=== PATIENT | male | born 1935 | race Caucasian/White ===

== ENCOUNTER 2016-04-27 16:09 | Inpatient (IN) | payer MEDICARE, OTHER ==
[~2016-04-27] VITALS: Ht 172.7 cm; Wt 101.4 kg
[~2016-04-27 16:09] MED LIST: ASPI1TAB PO; AUGM875T27 PO; B-1210009 PO; BISO5TAB5 PO; CALC500T19 PO; CAPS0.1C TOP; CARA1TAB2 PO; CO Q400C2 PO; COLC1CAP PO; DIGO0.12 PO; FERR32TA PO; FISH1000 PO; FLON1SPR; FURO20TA2 PO; GABA-283 PO; GARL10005 PO; GLUC1000 PO; INSUHUMDS SC; JANU100T PO; METF1000 PO; METF750T PO; MIRA3350 PO; OMEP20CA3 PO; PRED10TA PO; REST0.05 OU; SENN8.6T10 PO; SIMV40TA2 PO; SMZ-800T PO; SPIR25TA2 PO; TOUJ1.2I SC; VITA-112 PO; VITA1TAB23 PO; VITA500046 PO; VITMTA PO; XARE15TA PO
[2016-04-27 16:51] LABS: ABG BASE EXCESS 2.3 (-2.0-2.0); ABG DEVICE NASAL CANN; ABG HCO3 25.1 MEQ/L (22.0-26.0); ABG PARTIAL PRESSURE CO2 32.9 mmHg (35.0-45.0); ABG PARTIAL PRESSURE O2 68.2 mmHg (75.0-100.0); ABG STANDARD HCO3 26.4 MEQ/L (22.0-26.0); ABG TOTAL CO2 26.1 MEQ/L (23.0-31.0)
[2016-04-27] MEDS ORDERED: ACETAMINOPHEN 325 MG TAB As Ordered ONE (16:55)
--- NOTE | 2016-04-27 16:56 | REP ---
Clinical: Fever. Technique: 11/06/2015. Findings: Stable cardiomegaly and evidence for prior sternotomy and CABG again noted. Lung correia demonstrate chronic-appearing interstitial changes. Subtle superimposed atelectasis cannot be excluded. No obvious effusion. No pneumothorax. Skeletal structures intact. Impression: Cannot exclude superimposed basilar atelectasis. Signed by Abraham Spivey MD 04/27/2016 04:47 P
[2016-04-27 17:17] LABS: DIFF SLIDE NUMBER 229; MEAN CORPUSCULAR HEMOGLOBIN 30.3 pg (27.0-33.0); MEAN CORPUSCULAR HGB CONC 34.7 g/dl (32.0-36.5); MEAN CORPUSCULAR VOLUME 87.3 fl (80.0-96.0); RED CELL DISTRIBUTION WIDTH 16.3 % (11.5-14.5); WHITE BLOOD COUNT 3.3 K/mm3 (4.0-10.0)
[2016-04-27 17:18] LABS: PLATELET COUNT, AUTOMATED 85 k/mm3 (150-450)
[2016-04-27 17:20] LABS: ANION GAP 12 MEQ/L (8-16); BLOOD UREA NITROGEN 23 MG/DL (7-18); CALCIUM LEVEL 9.1 MG/DL (8.8-10.2); CARBON DIOXIDE LEVEL 30 MEQ/L (21-32); CHLORIDE LEVEL 93 MEQ/L (98-107); GLOMERULAR FILTRATION RATE > 60.0 (>35); GLUCOSE, FASTING 180 MG/DL (83-110); POTASSIUM SERUM 3.2 MEQ/L (3.5-5.1); SODIUM LEVEL 135 MEQ/L (136-145)
[2016-04-27 17:50] LABS: ANISOCYTOSIS 1+
[2016-04-27 17:51] LABS: SMUDGE CELLS 1+
[2016-04-27] MEDS ORDERED: cefTRIAXone SOD 1 GM VIAL (J0696) As Ordered ONE (18:36)
--- NOTE | 2016-04-27 19:31 | HPEPDOC ---
General Date of Admission 04/27/16 Primary Care Physician: Jr Ortega Collins Chief Complaint The patient is a 81-year-old male admitted with a reason for visit of Difficulty Breathing. Source: Patient, Family History of Present Illness 81-year-old male with past medical history of type 2 diabetes mellitus, peripheral vascular disease, coronary artery disease status post CABG, dyslipidemia, atrial fibrillation, and obstructive sleep apnea on 2 L of oxygen at night presented to the ER with chief complaint of worsening shortness of breath and nonproductive cough over the last 2 days. According to the patient and his 2 sons and daughter at the bedside the patient has been increasingly short of breath with a nonproductive cough, and associated generalized weakness. 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 The patient is able to complete his activities of daily living independently. However, during this time the patient has felt increasingly short of breath on ambulation. The patient was seen by his primary care physician earlier today and was found to have a fever of 102. In addition, the patient was also noted to be saturating 88-90% on room air, which is on the lower side for him as he does not require any supplemental oxygen during the day. The patient states that his shortness of breath is worse on ambulation, and states that he has been unable to do anything around the house. He denies any orthopnea or increase in lower extremity edema. In addition, the patient does state that he has been feeling more weak overall since his shortness of breath and cough started, and he has not been able to ambulate at home due to this. The patient denies any complaints of chest pain, palpitations, abdominal pain, nausea, vomiting, diarrhea, or any burning on urination. In the ER, a chest x-ray did not reveal any acute findings. However, the patient was noted to be febrile, with an increase in oxygen requirement. The patient will be admitted under the hospitalist service for possible underlying pneumonia/upper respiratory tract infection with associated weakness. Home Medications Scheduled (Co Q-10) 400 Mg Cap 400 MG PO DAILY (Reported) (Toujeo Solostar) 300 Unit/Ml Inj 48 UNIT SC DAILY (Reported) Aspirin (Aspirin 81) 81 Mg Tab 81 MG PO DAILY (Reported) Bisoprolol Fumarate (Bisoprolol Fumarate) 5 Mg Tab 5 MG PO DAILY (Reported) Cholecalciferol (Vitamin D-1000) 1,000 Unit Tab 1,000 UNIT PO DAILY (Reported) Cyanocobalamin (B-12) 1,000 Mcg Tab 1,000 MCG PO DAILY (Reported) Ferrous Gluconate (Ferrous Gluconate) 324 Mg Tab 324 MG PO DAILY (Reported) Fish Oil (Fish Oil) 1,000 Mg Cap 1,000 MG PO DAILY (Reported) Furosemide (Furosemide) 20 Mg Tab 60 MG PO DAILY (Reported) RESUME 20MG DOSE AFTER FLUID REDUCES Gabapentin (Gabapentin) 400 Mg Cap 800 MG PO BID (Reported) Insulin Human Lispro (Humalog) 1 Units/0.01 Ml Inj 8 UNITS SC TID (Reported) BEFORE MEALS Metformin Hydrochloride (Metformin HCl) 1,000 Mg Tab 1,000 MG PO BID (Reported ) Multivitamins *[facility]* (Thera M Plus *[facility]*) 1 Tab Tab 1 TAB PO DAILY (Reported) Polyethylene Glycol (Miralax) 1 Pow Pow 17 GM PO DAILY (Reported) Senna (Senna Lax) 8.6 Mg Tab 2 TAB PO DAILY (Reported) Simvastatin - High Dose (Simvastatin) 40 Mg Tab 40 MG PO QHS (Reported) Spironolactone (Spironolactone) 25 Mg Tab 12.5 MG PO BID (Reported) Sucralfate (Carafate) 1 Gm Tab 1 GM PO QID (Reported) Scheduled PRN (Restasis) 0.05 % Emu 2 DROP OU BID PRN PRN DRY EYES (Reported) Allergies Coded Allergies: Atorvastatin (Unverified Allergy, Unknown, 11/11/15) Past Medical History Medical History As noted in HPI Surgical History CABG, appendectomy, deviated septal repair, hand surgery Family History Family History Nonpertinent Social History * Smoker: former Smoker (quit 30+ years ago) Alcohol: occationally Drugs: denies Review of Symptoms Other systems 10 point review of systems negative unless otherwise specified in HPI. Physical Examination ENT Exam: Positive: Atraumatic, Mucous membr. moist/pink Chest Exam: Positive: Clear to auscultation, Normal air movement, Negative: Rales, Wheezing Heart Exam: Positive: Normal S1, Normal S2, Rate Normal Telemetry: Positive: Atrial fibrillation Abdomen Exam: Positive: Soft, Negative: Tenderness Extremity Exam: Positive: Edema (1+ pitting edema the lower extremity is bilaterally), Negative: Tenderness Laboratory Data Labs 24H Laboratory Tests 2 04/27/16 16:34: Anion Gap 12, Anisocytosis 1+, Atypical Lymphocytes 8H, B-Type Natriuretic Peptide 316H, Blood Urea Nitrogen 23H, Creatinine 1.20, Sodium Level 135L, Potassium Level 3.2L, Chloride Level 93L, Carbon Dioxide Level 30, Calcium Level 9.1, Total Creatine Kinase 73, Creatine Kinase MB 1.0, Creatine Kinase MB Relative Index 1.36, Glomerular Filtration Rate > 60.0, Lymphocytes (Manual) 18 , Monocytes (Manual) 22H, Neutrophils 52, Platelet Estimate DECREASED, Smudge Cells 1+, Troponin I 0.05 04/27/16 16:39: Arterial Blood pH 7.500H, Arterial Blood Partial Pressure CO2 32.9L, Arterial Blood Partial Pressure O2 68.2L, Arterial Blood Total CO2 26.1, Arterial Blood HCO3 25.1, Arterial Blood Base Excess 2.3H, Arterial Blood Oxygen Saturation 92.6L, Blood Gas Bicarbonate Standard 26.4H, Oxygen Delivery Device NASAL ZAID CBC/BMP Laboratory Tests 04/27/16 16:34 Calcium Level 9.1, Total Creatine Kinase 73, Red Blood Count 3.86 L, Mean Corpuscular Volume 87.3, Mean Corpuscular Hemoglobin 30.3, Mean Corpuscular Hemoglobin Concent 34.7, Red Cell Distribution Width 16.3 H Microbiology Microbiology 04/27/16 Blood Culture, Received Pending 04/27/16 Blood Culture, Received Pending 04/27/16 Influenza Virus Type A Antigen - Final, Complete 04/27/16 Influenza Virus Type B Antigen - Final, Complete Assessment/Plan Problems: (1) Shortness of breath Status: Acute Response to Treatment: Stable Problem Text: Patient clinically presents with symptoms suggestive of underlying upper respiratory tract infection/pneumonia; fever, increased shortness of breath, productive cough, with increase in oxygen requirements Chest x-ray not suggestive of any acute findings, however this may be masked by the fact that the patient does appear to be dehydrated on presentation ABG notable for respiratory alkalosis Rapid flu negative Blood, sputum cultures pending Will empirically cover with Rocephin and azithromycin for community acquired pneumonia We'll continue to monitor the patient's status (2) Acute kidney injury Status: Acute Problem Text: Serum creatinine noted to be 1.2, at baseline serum creatinine is between 0.8 and 1.0 I will hold his diuretic medication at this time Encourage by mouth intake, with fluid restriction for his history of diastolic CHF (3) Diabetes Status: Chronic Response to Treatment: Stable Problem Text: Continue on insulin sliding scale (4) Atrial fibrillation Status: Chronic Response to Treatment: Stable Problem Text: Rate controlled on current beta nya Not a candidate for anticoagulation given his history of GI bleeds Follows with Dr. Dean as an outpatient. (5) Coronary artery disease Status: Chronic Response to Treatment: Stable Problem Text: EKG with no acute ST changes Troponin negative in the ER Continue on aspirin, beta nya (6) Thrombocytopenia Status: Chronic Problem Text: Patient does have a history of thrombocytopenia, which he states that no particular etiology has been found during outpatient workups (7) PVD (peripheral vascular disease) Status: Chronic Response to Treatment: Stable (8) Obstructive sleep apnea Status: Chronic Response to Treatment: Stable Problem Text: Patient advised to use his own CPAP machine with 2 L of supplemental oxygen at night as used at home. (9) Dyslipidemia Status: Chronic Problem Text: Continue statin (10) Diastolic CHF Status: Chronic Response to Treatment: Stable Problem Text: Patient does take torsemide and spironolactone-however we will hold his medications due to his acute kidney injury Plan / VTE VTE Prophylaxis Ordered?: Yes MAGNUS PEREZ MD Apr 27, 2016 19:31
[2016-04-27] MEDS ORDERED: GARL10005 PO (19:34)
[2016-04-27] MEDS ORDERED: OMEP40CA2 PO (19:34)
[2016-04-27] MEDS ORDERED: BISO5TAB5 PO (19:34)
[2016-04-27] MEDS ORDERED: DIGO0.12 PO (19:34)
[2016-04-27] MEDS ORDERED: ALLO10TA PO (19:34)
[2016-04-27] MEDS ORDERED: COLC1TAB13 PO (19:34)
[2016-04-27] MEDS ORDERED: VISICAP PO (19:34)
[2016-04-27] MEDS ORDERED: VITATAB11 PO (19:34)
[2016-04-27] MEDS ORDERED: D 501TAB PO (19:34)
[2016-04-27] MEDS ORDERED: TORS20TA2 PO ×2 (19:34)
--- NOTE | 2016-04-27 20:40 | ECGEPIP ---
Stationary ECG Study [facility] - ED Test Date: 2016-04-27 Pat Name: CHELI FLEMING Department: Room: - Gender: M Sample Carrier: faviola : 1935 Requested By: Terry Corbin Order Number: [id number] Reading MD: Melissa Mcmahon Measurements Intervals [place] Rate: 77 P: AR: 0 QRS: 32 QRSD: 169 T: 0 QT: 426 QTc: 485 Interpretive Statements ATRIAL FIBRILLATION INDETERMINATE AXIS RIGHT BUNDLE BRANCH BLOCK POSSIBLE ANTERIOR MYOCARDIAL INFARCTION, OF INDETERMINATE AGE Electronically Signed On 04-27-2016 20:39:30 EST by Melissa Mcmahon
[2016-04-27] MEDS: HumaLOG INSULIN (NovoLOG) PER UNIT SC SCH (21:00)
--- NOTE | 2016-04-27 21:09 | EDDOCDS ---
Physician Documentation [facility] Name: Oswaldo Bearden Age: 81 yrs Sex: Male : 1935 Arrival Date: 04/27/2016 Time: 16:09 Bed 9 Private MD: Jordan Disposition: 04/27 18:39 Critical Care: Critical care not applicable. pc Disposition: 04/27/16 18:42 Hospitalization ordered by Valentin Winston for Inpatient Admission. Preliminary diagnosis are Fever of other and unknown origin, Acute upper respiratory infection, unspecified, Decreased white blood cell count, Thrombocytopenia, unspecified. - Bed requested for PCU. - Status is Inpatient Admission. nn1 - Condition is Stable. - Problem is new. - Symptoms have improved. HPI: 16:31 This 81 yrs old Male presents to ER with complaints of Breathing Difficulty. pc 16:31 The history is obtained from the patient, the patient's family/friend. He was well 2 pc days ago and was seen at his PCP for follow up. He was well yesterday but awoke this morning and was found to be drenched in sweat and confused. He felt very warm but did not have a temp recorded. He has had a slight cough. He has not had any nausea or vomiting. 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 He was seen at his PCP this afternoon and found to be febrile and have a PO of only 84% on room. EMS was called and he was transported here. He arrives BLS, with a PO of 93% on room air. He denies any chest pain, headache, SOB, sore throat, abdominal pain, n/v/d, swollen joints or reddened areas. 16:36 At their worst, the symptoms were moderate. In the emergency department, the symptoms pc are mild. The patient has experienced similar episodes in the past, several times. 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 Historical: - Allergies: Lipitor; - Home Meds: 1. aspirin 81 mg Oral chew 1 tab once daily (Last dose: 04/26/2016 08:00) 2. bisoprolol fumarate 5 mg oral tab 1 tab once daily (Last dose: 04/27/2016 08:00) 3. Carafate 1 gram Oral tab 1 tab 4 times per day (Last dose: 04/27/2016 08:00) 4. CoQ-10 30 mg oral cap daily (Last dose: 04/27/2016 08:00) 5. cyanocobalamin (vitamin B-12) 100 mcg oral tab daily (Last dose: 04/27/2016 08:00) 6. cyclosporine 25 mg Oral cap once daily (Last dose: 04/27/2016 08:00) 7. ferrous gluconate 324 mg (37.5 mg iron) Oral tab daily (Last dose: 04/27/2016 08:00) 8. Fish Oil 300-1,000 mg Oral cap daily (Last dose: 04/27/2016 08:00) 9. furosemide 20 mg Oral tab 3 tabs once daily until fluids are reduced (Last dose: 04/27/2016 08:00) 10. gabapentin 800 mg Oral tab twice a day (Last dose: 04/27/2016 08:00) 11. Humalog 8 Units before each meal 3 times daily Sub-Q three times a day (Last dose: 04/27/2016 12:00) 12. metformin 1,000 mg Oral tab 2 times per day (Last dose: 04/27/2016 08:00) 13. multivitamin Oral cap 1 tab daily (Last dose: 04/27/2016 08:00) 14. Prilosec 40 mg Oral cpDR 1 cap once daily (Last dose: 04/27/2016 08:00) 15. Restasis 0.05 % ophthalmic dpet 2 times per day (Last dose: 04/27/2016 08:00) 16. senna 8.6 mg oral cap 2 caps once daily (Last dose: 04/27/2016 08:00) 17. simvastatin 40 mg Oral tab 1 tab once daily (Last dose: 04/27/2016 08:00) 18. spironolactone 25 mg Oral tab 0.5 tab once daily (Last dose: 04/27/2016 08:00) 19. toujeo 48 Units titrate to maximum of 60 Units daily (Last dose: 04/27/2016 08:00) 20. Vit D 3 5000 unit daily (Last dose: 04/27/2016 08:00) - PMHx: CAD; Diabetes - NIDDM: controlled; Hypercholesterolemia; peripheral vascular disease; Sleep Apnea w/ CPAP; BBB; Atrial Fib; CKD 3; CHF; - PSHx: CABAG; Appendectomy; diviated septal repair; - The history from nurses notes was reviewed: but there are no nursing notes, or only partial notes available at the time of my charting. - Social history: Smoking status: Patient states was never smoker of tobacco. No barriers to communication noted, Speaks appropriately for age. - Hospitalizations: : The patient was recently seen at [facility], and discharged 4 month(s) ago, for unrelated complaints. - : The pt / caregiver states he / she is not on anticoagulants. Home medication list is obtained from family members, Unable to Verify Home Med List with the patient / caregiver. - Immunization history:: All immunizations up-to-date. - Exposure Risk Screening:: None identified. - Family history: Not pertinent. - Social history:: the patient is a former smoker, the patient drinks alcohol, socially. ROS: 16:36 All systems are negative except as listed. pc Exam: 16:39 General Appearance: no acute distress, alert. pc 16:39 EENT: ears, nose and throat normal, pale conjunctiva, mucous membranes dry. 16:39 Neck: The exam reveals no acute abnormalities. ROM is normal and painless. No nuchal rigidity is noted.. 16:39 Respiratory: no respiratory distress, normal breath sounds, PO 93% on RA. 16:39 CVS: regular pulse rate, normal S1 and S2, no murmurs, strong peripheral pulses, normal capillary refill, irregularly irregular 16:39 Abdomen: soft, non-tender, no organomegaly, normal bowel sounds. 16:39 Back: normal inspection. 16:39 : bladder is non-distended, non-tender. 16:39 Skin: skin color is normal, warm, dry. 16:39 Extremities: with pedal edema Other trace bilaterally 16:39 Neuro: oriented x 3, cranial nerves normal as tested, no motor deficits, no sensory deficits. 16:39 Psych: normal mood. Vital Signs: 16:22 BP 125 / 62; Pulse 85; Resp 20; Temp 100.9(O); Pulse Ox 93% ; Weight 100.7 kg / 222.01 jlf lbs; Height 5 ft. 8 in. (172.72 cm); Pain 0/10; 18:00 BP 122 / 68; Pulse 87; Resp 14; Pulse Ox 97% on R/A; Pain 0/10; ml6 18:32 Temp 99.4(O); jlf 16:22 Body Mass Index 33.75 (100.70 kg, 172.72 cm) [facility] MDM: 16:28 -Blood Culture (Adults Only), peripheral from different site, or from device/port/PICC pc etc. if present ordered. 16:28 Tip Cementer/Pulse Ox/q 15 min VS ordered. pc 16:28 IV Saline Lock ordered. pc 16:28 Rhythm Strip to chart ordered. pc 16:28 Obtain sample by nasopharyngeal swab ordered. pc 16:29 -Arterial Blood Gas Ordered. EDMS 16:29 -Blood Culture Ordered. EDMS 16:29 B-Type Natiuretic Peptide Ordered. EDMS 16:29 Basic Metabolic Profile Ordered. EDMS 16:29 CBC with Diff Ordered. EDMS 16:29 Cardiac Injury Profile Ordered. EDMS 16:29 Troponin Ordered. EDMS 16:29 -Influenza A&B Rapid Antigen - Nose Ordered. EDMS 16:29 Chest, 1 View Ordered. EDMS 16:30 ECG WITH READING ER PHYS+CARDIAG ordered. EDMS 16:30 -Blood Culture (Adults Only), peripheral from different site, or from device/port/PICC lbd etc. if present complete. 16:33 BLOOD CULTURES Ordered. EDMS 16:42 Differential Diagnosis: febrile illness with cough r/o pneumonia, influenza; AFib no pc longer on anticoagulants due to UGI bleeding history. Plan: labs, EKG, CXR. Test interpretation: EKG. 16:45 Acetaminophen Tablet 650 mg PO once ordered. pc 17:03 Test interpretation: LAB - all labs as ordered have been reviewed, interpreted and pc considered in the overall management of the clinical presentation; X-RAY - interpreted by Radiologist and personally reviewed, 1 view chest ?bibasilar atelectasis, else nad. 17:04 -Arterial Blood Gas Reviewed. pc 17:04 -Influenza A&B Rapid Antigen - Nose Reviewed. pc 17:04 Chest, 1 View Reviewed. pc 17:10 Financial registration complete. gjb 17:14 [facility] Payment Agreement was scanned into [employer] and attached to record. gjb 17:21 DIFFERENTIAL NO CHARGE Ordered. EDMS 17:21 PLATELET ESTIMATE Ordered. EDMS 17:42 B-Type Natiuretic Peptide Reviewed. pc 17:42 Basic Metabolic Profile Reviewed. pc 17:42 CBC with Diff Reviewed. pc 17:42 Cardiac Injury Profile Reviewed. pc 17:42 Troponin Reviewed. pc 17:43 PLATELET ESTIMATE Reviewed. pc 17:46 Ambulate Patient wt Pulse Oximetry ordered. pc 17:46 Repeat Temperature - Oral: Inform provider of result ordered. pc 18:10 CBC with Diff Reviewed. pc 18:10 PLATELET ESTIMATE Reviewed. pc 18:33 NS 0.9% 1000 ml IV at 100 mL/hr continuous ordered. pc 18:33 cefTRIAXone 1 grams IVPB once over 30 mins; dilute in 50mL of NS or D5W ordered. pc 18:33 Urine Culture Ordered. EDMS 18:36 BED REQUEST+ADM ordered. EDMS 18:39 Data reviewed: old medical records, vital signs, nurses notes, EKG(s), lab test pc results, all radiology studies and available results. Test interpretation: Arterial blood gas is normal except. pH: 7.5 pO2: 68 pCO2: 29. The patient has been re-examined and re-evaluated. The patient's symptoms have mildly improved after treatment, with his fever resolved but he is unsteady while ambulating and is unsafe for discharge. Physician consultation: Dr. Valentin Winston regarding admission. Disposition: The historical points, examination findings, and any diagnostic results supporting the provided diagnosis, were discussed with the patient or legal guardian. The need for further work-up and/or treatment in the hospital was explained. 19:12 Admission / Observation Status ordered. EDMS 19:13 CONSISTENT CARBOHYDRATES ordered. EDMS 19:13 URINALYSIS Ordered. EDMS 19:14 PHYSICAL THERAPY EVAL & TREAT ordered. EDMS 19:29 SPUTUM CULTURE AND GRAM STAIN Ordered. EDMS 19:32 BASIC METABOLIC PROFILE Ordered. EDMS 19:32 COMPLETE BLOOD COUNT Ordered. EDMS EC:42 Rate is 77 beats/min. Rhythm is irregularly irregular, A fib. QRS [place] is Normal. QRS pc interval is prolonged at 139 msec. QT interval is normal. No Q waves. T waves are Normal. No ST changes noted. Clinical impression: Atrial Fibrillation w/o RVR, RBBB, and Anterior WA - age indeterminate. No change from previous ECG in October,. Administered Medications: 16:49 Drug: Acetaminophen 650 mg [acetaminophen 325 mg tablet (2 tabs)] Route: PO; ml6 18:33 Drug: NS 0.9% 1000 ml [sodium chloride 0.9 % intravenous solution] Route: IV; Rate: 100 ml6 mL/hr; Site: left antecubital; 20:10 Drug: cefTRIAXone 1 grams [ceftriaxone 250 mg solution for injection] Route: IVPB; nn1 Infused Over: 30 mins; Site: right antecubital; 21:05 Follow up: IV Status: Completed infusion nn1 Signatures: Dispatcher [employer] EDMS Terry Tamayo MD MD pc Daly, Linda, Registered Nurse [employer] [facility] lbd Maximilian Guerin RN RN ml6 Awilda, Mana, GASSER MACHINE OPERATOR GASSER MACHINE OPERATOR [id number] Joe JaimeRN RN nn1 Rosa Whitt The chart was reviewed and I authenticate all verbal orders and agree with the evaluation and treatment provided.Corrections: (The following items were deleted from the chart) 16:38 16:31 He was well 2 days ago and was seen at his PCP for follow up. He was well pc yesterday but awoke this morning and was found to be drenched in sweat and confused. He felt very warm but did not have a temp recorded. He has had a slight cough. He has not had any nausea or vomiting. 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 He was seen at his PCP this afternoon and found to be febrile and have a PO of only 84% on room. EMS was called and he was transported here. pc 16:42 16:39 CVS: regular pulse rate, regular rhythm, normal S1 and S2, no murmurs, strong pc peripheral pulses, normal capillary refill, pc Attachments: 17:14 [facility] Payment Agreement [email or web address]
--- NOTE | 2016-04-27 21:10 | EDDOCDS ---
Nurse's Notes [facility] Name: Cheli Fleming Age: 81 yrs Sex: Male : 1935 Arrival Date: 04/27/2016 Time: 16:09 Bed 9 Private MD: Jordan Diagnosis: Fever of other and unknown origin;Acute upper respiratory infection, unspecified;Decreased white blood cell count;Thrombocytopenia, unspecified Presentation: 04/27 16:22 Presenting complaint: Patient states: states SOB and fatigue since 1999. Adult Sepsis ml6 Screening: Patient has new or worsening altered mentation (1 point). Patient's respiratory rate is less than 22. Systolic blood pressure is greater than 100. Patient has a qSOFA score of 1- Negative Sepsis Screen. Suicide/Homicide risk assessment- the patient denies having any suicidal and/or homicidal ideations and does not present with any other emotional, behavioral or mental health complaints. Status: Patient is not a member service representative or dependent. Transition of care: patient was not received from another setting of care. 16:22 Method Of Arrival: Ambulance ml6 16:33 Acuity: SHIMON Level 3 ml6 Triage Assessment: 16:22 General: Appears in no apparent distress, Behavior is drowsy. Pain: Denies pain. ml6 Neurological: No deficits noted. Level of Consciousness is lethargic, Oriented to person, place, time. Cardiovascular: No deficits noted. Capillary refill < 3 seconds is brisk in bilateral fingers toes Heart tones S1 S2 present Edema is 1+ to left ankle and right ankle Pulses are all present. Rhythm is atrial fibrillation With PVC's Chest pain is denied. Respiratory: Onset: The symptoms/episode began/occurred yesterday, Airway is patent Respiratory effort is even, unlabored, Respiratory pattern is regular, symmetrical, Breath sounds are diminished bilaterally. Reports shortness of breath on exertion the patient has moderate shortness of breath. GI: No deficits noted. Abdomen is obese, Bowel sounds present X 4 quads. Abd is soft and non tender X 4 quads. Historical: - Allergies: Lipitor; - Home Meds: 1. aspirin 81 mg Oral chew 1 tab once daily (Last dose: 04/26/2016 08:00) 2. bisoprolol fumarate 5 mg oral tab 1 tab once daily (Last dose: 04/27/2016 08:00) 3. Carafate 1 gram Oral tab 1 tab 4 times per day (Last dose: 04/27/2016 08:00) 4. CoQ-10 30 mg oral cap daily (Last dose: 04/27/2016 08:00) 5. cyanocobalamin (vitamin B-12) 100 mcg oral tab daily (Last dose: 04/27/2016 08:00) 6. cyclosporine 25 mg Oral cap once daily (Last dose: 04/27/2016 08:00) 7. ferrous gluconate 324 mg (37.5 mg iron) Oral tab daily (Last dose: 04/27/2016 08:00) 8. Fish Oil 300-1,000 mg Oral cap daily (Last dose: 04/27/2016 08:00) 9. furosemide 20 mg Oral tab 3 tabs once daily until fluids are reduced (Last dose: 04/27/2016 08:00) 10. gabapentin 800 mg Oral tab twice a day (Last dose: 04/27/2016 08:00) 11. Humalog 8 Units before each meal 3 times daily Sub-Q three times a day (Last dose: 04/27/2016 12:00) 12. metformin 1,000 mg Oral tab 2 times per day (Last dose: 04/27/2016 08:00) 13. multivitamin Oral cap 1 tab daily (Last dose: 04/27/2016 08:00) 14. Prilosec 40 mg Oral cpDR 1 cap once daily (Last dose: 04/27/2016 08:00) 15. Restasis 0.05 % ophthalmic dpet 2 times per day (Last dose: 04/27/2016 08:00) 16. senna 8.6 mg oral cap 2 caps once daily (Last dose: 04/27/2016 08:00) 17. simvastatin 40 mg Oral tab 1 tab once daily (Last dose: 04/27/2016 08:00) 18. spironolactone 25 mg Oral tab 0.5 tab once daily (Last dose: 04/27/2016 08:00) 19. toujeo 48 Units titrate to maximum of 60 Units daily (Last dose: 04/27/2016 08:00) 20. Vit D 3 5000 unit daily (Last dose: 04/27/2016 08:00) - PMHx: CAD; Diabetes - NIDDM: controlled; Hypercholesterolemia; peripheral vascular disease; Sleep Apnea w/ CPAP; BBB; Atrial Fib; CKD 3; CHF; - PSHx: CABAG; Appendectomy; diviated septal repair; - The history from nurses notes was reviewed: but there are no nursing notes, or only partial notes available at the time of my charting. - Social history: Smoking status: Patient states was never smoker of tobacco. No barriers to communication noted, Speaks appropriately for age. - Hospitalizations: : The patient was recently seen at [facility], and discharged 4 month(s) ago, for unrelated complaints. - : The pt / caregiver states he / she is not on anticoagulants. Home medication list is obtained from family members, Unable to Verify Home Med List with the patient / caregiver. - Immunization history:: All immunizations up-to-date. - Exposure Risk Screening:: None identified. - Family history: Not pertinent. - Social history:: the patient is a former smoker, the patient drinks alcohol, socially. Screenin:48 Screening information is obtained from the patient. Fall risk: No risks identified. ml6 Assistance ADL's: requires no assistance with activities of daily living. Abuse/DV Screen: The patient / caregiver reports he/she is: not in a situation that causes fear, pain or injury. Nutritional screening: No deficits noted. Advance Directives: Currently, there is a health care proxy. home support is adequate. Assessment: 16:22 General: see triage assessment. Cardiovascular: Capillary refill < 3 seconds is brisk ml6 in bilateral fingers toes Heart tones S1 S2 present Edema is 1+ to left ankle and right ankle Pulses are all present. Rhythm is atrial fibrillation With PVC's Chest pain is denied. 17:30 Reassessment: Patient appears in no apparent distress at this time. Patient states ml6 feeling better. Patient states symptoms have improved. patient ambulated with 2 assist 30 feet. . 18:30 Reassessment: Patient appears in no apparent distress at this time. Patient states ml6 feeling better. Patient states symptoms have improved. 20:10 General: Appears in no apparent distress. Neurological: Level of Consciousness is nn1 awake, alert. Cardiovascular: Rhythm is atrial fibrillation With PVC's. Respiratory: Airway is patent Respiratory effort is even, unlabored, Respiratory pattern is regular. 21:03 General: Appears in no apparent distress, to be sleeping. Behavior is appropriate for nn1 age, cooperative. General: Patient given jw jeannie, did not want food at this time. . Neurological:. Respiratory: Airway is patent Respiratory effort is even, unlabored, Respiratory pattern is regular. Derm: Skin is pink, warm & dry. Vital Signs: 16:22 BP 125 / 62; Pulse 85; Resp 20; Temp 100.9(O); Pulse Ox 93% ; Weight 100.7 kg; Height 5 jlf ft. 8 in. (172.72 cm); Pain 0/10; 18:00 BP 122 / 68; Pulse 87; Resp 14; Pulse Ox 97% on R/A; Pain 0/10; ml6 18:32 Temp 99.4(O); jlf 16:22 Body Mass Index 33.75 (100.70 kg, 172.72 cm) [facility] Vitals: 21:06 Log In Time: April 27, 2016 at 16:09. nn1 ED Course: 16:10 Patient visited by Ely Anaya, Administrator Pesticide. lbd 16:10 Patient moved to Waiting lbd 16:11 Jordan is Private Physician. lbd 16:11 Patient moved to 9 lbd 16:17 Terry Tamayo MD is Attending Physician. pc 16:22 Patient visited by Constantino Comer PCA. jlf 16:22 Patient visited by Constantino Comer PCA. jlf 16:22 Inserted peripheral IV: 18gauge IV in right antecubital area and blood collected. ml6 Patient tolerated the procedure well. Labs drawn. (by ED staff). Sent per order to lab. Labs/Blood culture drawn. 16:27 Patient visited by Terry Tamayo MD. pc 16:33 Triage Initiated ml6 16:42 Patient visited by Constantino Comer PCA. jlf 16:43 Patient visited by Constantino Comer PCA. jlf 16:43 Pt greeted and oriented to ED. Patient advised of names of staff involved in care, [facility] location of call lenz, wait times and NPO status. Accompanied by Family Member, Patient has correct armband on for positive identification. Placed in gown. Bed in low position. Side rails up X2. youth nutritional monitor on. Pulse ox on. NIBP on. 16:43 EKG done. (by ED staff). Reviewed by Terry Tamayo MD. jlf 16:45 -Arterial Blood Gas Sent. rs5 16:48 The patient / caregiver is instructed regarding the plan of care and ED course. ml6 16:48 B-Type Natiuretic Peptide Sent. ml6 16:48 Basic Metabolic Profile Sent. ml6 16:48 CBC with Diff Sent. ml6 16:48 Cardiac Injury Profile Sent. ml6 16:48 Troponin Sent. ml6 16:58 Chest, 1 View Returned. EDMS 17:04 Patient visited by Maximilian Guerin RN. ml6 17:14 [facility] Payment Agreement was scanned into AF83 and attached to record. gjb 17:26 DIFFERENTIAL NO CHARGE Sent. ml6 17:27 Patient visited by Maximilian Guerin RN. ml6 17:55 Patient visited by Constantino Comer PCA. jlf 18:29 Patient visited by Constantino Comer PCA. jlf 18:29 Notified attending ED physician of ambulated patient per Dr. thrasher. Patients sats jlf droppped to 91% on RA, prior to that he was standing at 94%. patient was very unstable while trying to walk to the bathroom, needing assistance from this fiction writer and patients son. Notified Dr. Tamayo. . 18:31 Patient visited by Constantino Comer PCA. jlf 18:32 Patient visited by Constantino Comer PCA. jlf 18:41 Valentin Winston is Hospitalizing Provider. pc 20:52 EKG-ADULT Returned. EDMS 21:06 No procedures done that require assistance. nn1 Administered Medications: 16:49 Drug: Acetaminophen 650 mg [acetaminophen 325 mg tablet (2 tabs)] Route: PO; ml6 18:33 Drug: NS 0.9% 1000 ml [sodium chloride 0.9 % intravenous solution] Route: IV; Rate: 100 ml6 mL/hr; Site: left antecubital; 20:10 Drug: cefTRIAXone 1 grams [ceftriaxone 250 mg solution for injection] Route: IVPB; nn1 Infused Over: 30 mins; Site: right antecubital; 21:05 Follow up: IV Status: Completed infusion nn1 RT: 16:45 ABG's drawn from left radial artery pressure held for 5 minutes no bleeding noted rs5 pressure bandage applied specimen sent pt. tolerated well. Order Results: Lab Order: -Arterial Blood Gas; [facility] 04/27/16 16:39 Test: ABG pH (ARTERIAL); Value: 7.500; Range: 7.350-7.450; Abnormal: Above high normal; Units: UNITS; Status: F Test: ABG PARTIAL PRESSURE CO2; Value: 32.9; Range: 35.0-45.0; Abnormal: Below low normal; Units: mmHg; Status: F Test: ABG PARTIAL PRESSURE O2; Value: 68.2; Range: 75.0-100.0; Abnormal: Below low normal; Units: mmHg; Status: F Test: ABG TOTAL CO2; Value: 26.1; Range: 23.0-31.0; Units: MEQ/L; Status: F Test: ABG HCO3; Value: 25.1; Range: 22.0-26.0; Units: MEQ/L; Status: F Test: ABG BASE EXCESS; Value: 2.3; Range: -2.0-2.0; Abnormal: Above high normal; Status: F Test: ABG STANDARD HCO3; Value: 26.4; Range: 22.0-26.0; Abnormal: Above high normal; Units: MEQ/L; Status: F Test: ABG O2 SATURATION; Value: 92.6; Range: 95.0-99.0; Abnormal: Below low normal; Units: %; Status: F Test: ABG DEVICE; Value: NASAL ZAID; Status: F Lab Order: B-Type Natiuretic Peptide; [facility] 04/27/16 16:34 Test: BRAIN NATRIURETIC PEPTIDE; Value: 316; Range: <100; Abnormal: Above high normal; Units: PG/ML; Status: F Lab Order: Basic Metabolic Profile; [facility] 04/27/16 16:34 Test: GLUCOSE, FASTING; Value: 180; Range: 83-110; Abnormal: Above high normal; Units: MG/DL; Status: F Test: BLOOD UREA NITROGEN; Value: 23; Range: 7-18; Abnormal: Above high normal; Units: MG/DL; Status: F Test: CREATININE FOR GFR; Value: 1.20; Range: 0.70-1.30; Units: MG/DL; Status: F Test: GLOMERULAR FILTRATION RATE; Value: > 60.0; Range: >35; Status: F Test: SODIUM LEVEL; Value: 135; Range: 136-145; Abnormal: Below low normal; Units: MEQ/L; Status: F Test: POTASSIUM SERUM; Value: 3.2; Range: 3.5-5.1; Abnormal: Below low normal; Units: MEQ/L; Status: F Test: CHLORIDE LEVEL; Value: 93; Range: 98-107; Abnormal: Below low normal; Units: MEQ/L; Status: F Test: CARBON DIOXIDE LEVEL; Value: 30; Range: 21-32; Units: MEQ/L; Status: F Test: ANION GAP; Value: 12; Range: 8-16; Units: MEQ/L; Status: F Test: CALCIUM LEVEL; Value: 9.1; Range: 8.8-10.2; Units: MG/DL; Status: F Test Note: ; Units are mL/min/1.73 m2 Chronic Kidney Disease Staging per NKF: Stage I & II GFR >=60 Normal to Mildly Decreased Stage III GFR 30-59 Moderately Decreased Stage IV GFR 15-29 Severely Decreased Stage V GFR <15 Very Little GFR Left ESRD GFR <15 on ADVANCE SCOUT Lab Order: CBC with Diff; SPEC'M 04/27/16 16:34 Test: WHITE BLOOD COUNT; Value: 3.3; Range: 4.0-10.0; Abnormal: Below low normal; Units: K/mm3; Status: F Test: RED BLOOD COUNT; Value: 3.86; Range: 4.30-6.10; Abnormal: Below low normal; Units: M/mm3; Status: F Test: HEMOGLOBIN; Value: 11.7; Range: 14.0-18.0; Abnormal: Below low normal; Units: g/dl; Status: F Test: HEMATOCRIT; Value: 33.7; Range: 42.0-52.0; Abnormal: Below low normal; Units: %; Status: F Test: MEAN CORPUSCULAR VOLUME; Value: 87.3; Range: 80.0-96.0; Units: fl; Status: F Test: MEAN CORPUSCULAR HEMOGLOBIN; Value: 30.3; Range: 27.0-33.0; Units: pg; Status: F Test: MEAN CORPUSCULAR HGB CONC; Value: 34.7; Range: 32.0-36.5; Units: g/dl; Status: F Test: RED CELL DISTRIBUTION WIDTH; Value: 16.3; Range: 11.5-14.5; Abnormal: Above high normal; Units: %; Status: F Test: PLATELET COUNT, AUTOMATED; Value: 85; Range: 150-450; Abnormal: Below low normal; Units: k/mm3; Status: F Test: NEUTROPHILS; Value: 52; Range: 35-75; Units: %; Status: F Test: LYMPHOCYTES; Value: 18; Range: 16-52; Units: %; Status: F Test: MONOCYTES; Value: 22; Range: 0-8; Abnormal: Above high normal; Units: %; Status: F Test: ATYPICAL LYMPH; Value: 8; Range: 0-5; Abnormal: Above high normal; Units: %; Status: F Test: ANISOCYTOSIS; Value: 1+; Status: F Test: SMUDGE CELLS; Value: 1+; Status: F Lab Order: Cardiac Injury Profile; [facility] 04/27/16 16:34 Test: CPK CREATINE PHOSPHOKINASE; Value: 73; Range: 39-308; Units: U/L; Status: F Test: CK-MB VALUE MASS; Value: 1.0; Range: 0.0-3.6; Units: NG/ML; Status: F Test: MB/CK RELATIVE INDEX; Value: 1.36; Range: < OR =4; Status: F Test Note: ; DIAGNOSIS CRITERIA MMB ng/ml Relative Index (RI) NON-AMI < or = 5 N/A AGOSTO ZONE > 5 < or = 4 AMI > 5 > 4 Lab Order: Troponin; [facility] 04/27/16 16:34 Test: TROPONIN I; Value: 0.05; Range: < 0.10; Units: NG/ML; Status: F Test Note: ; Troponin I Reference Interval for [employer] LOCI: 99th Percentile= 0.00-0.045 ng/ml Risk Stratification: <= 0.10 ng/ml Decreased Risk for Adverse Clinical Events. 0.10-1.50 ng/ml Increased Risk for Adverse Clinical Events. Evaluation of additional criterion and/or repeat testing in 2-6 hours is suggested to rule out myocardial damage. >= 1.50 ng/ml Indicative of Myocardial Injury. Lab Order: -Influenza A&B Rapid Antigen - Nose; [facility] 04/27/16 16:34 Test: INFLUENZA A RAPID SCR by ICA; Value: INFLUENZA A RESULTS NEGATIVE; Status: F Test: INFLUENZA A RAPID SCR by ICA; Value: Comments:; Status: F Test: INFLUENZA B RAPID SCR by ICA; Value: INFLUENZA B RESULTS NEGATIVE; Status: F Test Note: ; The Influenza test is a direct rapid immunoassay for the qualitative detection of Influenza viral antigen. Cell culture (Viral Culture) testing should be considered to confirm NEGATIVE results and to assist in detecting other viruses that can provide similar clinical symptoms. Please contact the lab within 24 hours [phone] if confirmatory testing is desired. Lab Order: PLATELET ESTIMATE; SPEC'M 04/27/16 16:34 Test: PLATELET ESTIMATE; Value: DECREASED; Range: NORMAL; Status: F Lab Order: URINALYSIS; SPEC'M 04/27/16 20:03 Test: APPEARANCE, URINE; Value: CLEAR; Range: CLEAR; Status: F Test: COLOR, URINE; Value: YELLOW; Range: YELLOW; Status: F Test: PH,URINE; Value: 5.0; Range: 5.0-9.0; Units: UNITS; Status: F Test: SPECIFIC GRAVITY URINE AUTO; Value: 1.010; Range: 1.002-1.035; Status: F Test: PROTEIN, URINE AUTO; Value: NEGATIVE; Range: NEGATIVE; Units: mg/dL; Status: F Test: GLUCOSE, URINE (UA) AUTO; Value: NEGATIVE; Range: NEGATIVE; Units: mg/dL; Status: F Test: KETONE, URINE AUTO; Value: NEGATIVE; Range: NEGATIVE; Units: mg/dL; Status: F Test: UROBILINOGEN, URINE AUTO; Value: 0.2; Range: 0.0-2.0; Units: mg/dL; Status: F Test: BILIRUBIN, URINE AUTO; Value: NEGATIVE; Range: NEGATIVE; Status: F Test: NITRITE, URINE AUTO; Value: NEGATIVE; Range: NEGATIVE; Status: F Test: LEUKOCYTE ESTERASE, URINE AUTO; Value: NEGATIVE; Range: NEGATIVE; Status: F Test: BLOOD, URINE BLOOD; Value: NEGATIVE; Range: NEGATIVE; Status: F Test: WBC, URINE AUTO; Value: 0; Range: 0-3; Units: /HPF; Status: F Test: RBC, URINE AUTO; Value: 3; Range: 0-3; Units: /HPF; Status: F Test: BACTERIA, URINE AUTO; Value: NEGATIVE; Range: NEGATIVE; Status: F Test: SQUAMOUS EPITHELIAL CELL UR AU; Value: 0; Range: 0-6; Units: /HPF; Status: F Test: MUCUS, URINE; Value: SMALL; Range: NEGATIVE; Status: F Test: HYALINE CAST, URINE AUTO; Value: 5; Range: 0-1; Units: /LPF; Status: F Radiology Order: Chest, 1 View Test: Chest, 1 View REASON FOR EXAMINATION: fever; Clinical: Fever.; ; Technique: 11/06/2015.; ; Findings:; Stable cardiomegaly and evidence for prior sternotomy and CABG again noted. Lung; correia demonstrate chronic-appearing interstitial changes. Subtle superimposed; atelectasis cannot be excluded. No obvious effusion. No pneumothorax. Skeletal; structures intact.; ; Impression:; Cannot exclude superimposed basilar atelectasis.; ; ; Signed by; Abraham Spivey MD 04/27/2016 04:47 P; Radiology Order: EKG-ADULT Test: EKG-ADULT REASON FOR EXAMINATION: Shortness of Breath; Stationary ECG Study; [facility] - ED; ; Test Date: 2016-04-27; Pat Name: CHELI FLEMING Department:; Room: -; Gender: Manager Foreign: ; : 1935 Requested By: Terry Corbin; Order Number: [id number] Reading MD: Melissa Mcmahon; Measurements; Intervals [place]; Rate: 77 P:; SD: 0 QRS: 32; QRSD: 169 T: 0; QT: 426; QTc: 485; Interpretive Statements; ATRIAL FIBRILLATION; INDETERMINATE AXIS; RIGHT BUNDLE BRANCH BLOCK; POSSIBLE ANTERIOR MYOCARDIAL INFARCTION, OF INDETERMINATE AGE; ; Electronically Signed On 04-27-2016 20:39:30 EST by Melissa Mcmahon; Outcome: 18:42 Decision to Hospitalize by Provider. pc 21:05 Discharge Assessment: Patient awake, alert and oriented x 3. No cognitive and/or nn1 functional deficits noted. Patient verbalized understanding of disposition instructions. 21:05 Discharge Assessment: patient administered narcotics - no. The following High Risk nn1 Discharge criteria are identified: None. Admitted to PCU accompanied by nurse, accompanied by tech, family with patient, via stretcher, with oxygen, on monitor, with chart. Condition: stable. No special radiology studies were completed. Admission hand-off: Report Faxed Fax receipt verified by ZE Page . Property :Personal belongings accompany Pt. 21:08 Patient left the ED. nn1 Signatures: Dispatcher [employer] EDMS Terry Tamayo MD MD pc Daly, Linda, Administrator Pesticide Unit lbd Maximilian Guerin, RN RN ml6 Sergio Bae,RT RT rs5 Constantino Comer, [employer] Joe EscotoRN RN nn1 Rosa Whitt MTDD
[2016-04-27 21:15] VITALS: BP 146/61
[2016-04-27] MEDS ORDERED: GLUCAGON FOR INJ 1 MG VIAL (J1610) SC PRN (21:45)
[2016-04-27] MEDS ORDERED: GLUCOSE 4 GM CHEW TABLET PO PRN (21:45)
[2016-04-27] MEDS ORDERED: POTASSIUM CHLORIDE 10 MEQ SR TABLET PO ONE (21:45)
[2016-04-27] MEDS ORDERED: DEXTROSE 50% 50 ML SYRINGE IV PRN (21:45)
[2016-04-27] MEDS: OMEPRAZOLE 20 MG CAP PO SCH (22:51)
[2016-04-27] MEDS: SIMVASTATIN 40 MG TAB PO SCH (22:51)
[2016-04-27] MEDS: BISOPROLOL FUMARATE 5 MG TAB PO SCH (22:52)
[2016-04-27] MEDS: SUCRALFATE 1 GM TAB PO SCH (22:52)
[2016-04-27] MEDS: GABAPENTIN 400 MG CAP PO SCH (23:08)
[2016-04-28] VITALS: BP 115/68
[2016-04-28 03:29] LABS: ANION GAP 11 MEQ/L (8-16); BLOOD UREA NITROGEN 22 MG/DL (7-18); CALCIUM LEVEL 8.7 MG/DL (8.8-10.2); CARBON DIOXIDE LEVEL 31 MEQ/L (21-32); CHLORIDE LEVEL 94 MEQ/L (98-107); CREATININE FOR GFR 1.13 MG/DL (0.70-1.30); GLOMERULAR FILTRATION RATE > 60.0 (>35); GLUCOSE, FASTING 134 MG/DL (83-110); POTASSIUM SERUM 3.4 MEQ/L (3.5-5.1); SODIUM LEVEL 136 MEQ/L (136-145)
[2016-04-28 03:33] LABS: MEAN CORPUSCULAR HEMOGLOBIN 29.5 pg (27.0-33.0); MEAN CORPUSCULAR HGB CONC 33.4 g/dl (32.0-36.5); MEAN CORPUSCULAR VOLUME 88.5 fl (80.0-96.0); RED CELL DISTRIBUTION WIDTH 17.3 % (11.5-14.5); WHITE BLOOD COUNT 3.5 K/mm3 (4.0-10.0)
[2016-04-28 04:00] VITALS: BP 120/58
[2016-04-28] MEDS: cefTRIAXone SOD 1 GM in D5W MINI-BAG PLUS 50 ML IV SCH ×2 (05:29→17:05)
[2016-04-28 07:20] VITALS: BP 124/62
[2016-04-28] MEDS: HumaLOG INSULIN (NovoLOG) PER UNIT SC SCH ×4 (07:46→21:00)
[2016-04-28] MEDS: IPRATROPIUM 0.5MG/ALBUTEROL 2.5MG INH SOL UD 3ML (DUONEB)(J7620) NEB SCH ×3 (08:00→19:46)
[2016-04-28] MEDS ORDERED: FUROSEMIDE 40 MG/4 ML VIAL (J1940) IV STA (08:28)
[2016-04-28] MEDS ORDERED: IPRATROPIUM 0.5MG/ALBUTEROL 2.5MG INH SOL UD 3ML (DUONEB)(J7620) NEB PRN (08:30)
[2016-04-28] MEDS: GABAPENTIN 400 MG CAP PO SCH ×2 (08:47→21:37)
[2016-04-28] MEDS: COLCHICINE 0.6 MG TAB PO SCH (08:47)
[2016-04-28] MEDS: MIRALAX *UNIT DOSE* 17GM PACKET PO SCH (08:47)
[2016-04-28] MEDS: DIGOXIN 0.125 MG TAB PO SCH (08:48)
[2016-04-28] MEDS: OMEGA-3 1050MG CAPSULE PO SCH (08:48)
[2016-04-28] MEDS: SENNA 8.6 MG TAB (SENOKOT) PO SCH (08:48)
[2016-04-28] MEDS: MULTIVITAMINS/MINERALS THERAP 1 TAB PO SCH (08:48)
[2016-04-28] MEDS: AZITHROMYCIN 250 MG TAB PO SCH (08:48)
[2016-04-28] MEDS: FERROUS GLUCONATE 324 MG TAB PO SCH (08:49)
[2016-04-28] MEDS: BISOPROLOL FUMARATE 5 MG TAB PO SCH ×2 (08:49→21:38)
[2016-04-28] MEDS: ASPIRIN 81 MG ENTERIC TAB PO SCH (08:49)
[2016-04-28] MEDS: OMEPRAZOLE 20 MG CAP PO SCH ×2 (08:50→21:37)
[2016-04-28] MEDS: ALLOPURINOL 100 MG TAB PO SCH (08:50)
[2016-04-28] MEDS ORDERED: FUROSEMIDE 40 MG/4 ML VIAL (J1940) IV ONE (11:00)
[2016-04-28] MEDS ORDERED: POTASSIUM CHLORIDE 10 MEQ SR TABLET PO ONE (11:00)
--- NOTE | 2016-04-28 11:11 | IPNPDOC ---
Date of Service/Time 04/28/16 Progress Note SUBJECTIVE: The patient tells me that he feels more short of breath when lying flat was exertion but otherwise denies chest pressure lightheadedness dizziness nausea vomiting fevers or chills. He denies sick contacts or recent development of cough OBJECTIVE: PHYSICAL EXAMINATION: VITAL SIGNS: New O2 requirement otherwise Please see below. GENERAL: He is a very pleasant elderly man lying at a 60 angle in bed he does not appear to be in acute distress when I take him off his oxygen he begins to appear somewhat short of breath HEENT: Is a very round reactive to light is difficult to assess for any elevation central venous pressure secondary to body habitus CARDIOVASCULAR: Is 1 S2 regular. RESPIRATORY: Bibasilar Rales. ABDOMINAL: Obese EXTREMITIES: 1+ edema bilaterally LABORATORY DATA: Pancytopenia hypokalemia elevated BNP Please see below. MICROBIOLOGY: Flu swab was negative blood cultures and urine cultures are pending otherwise Please see below. IMAGING: No new imaging DVT prophylaxis ordered?: Sequentials and teds no pharmacological agents secondary to thrombocytopenia ASSESSMENT AND PLAN: This is a 81-year-old man with dyspnea PROBLEMS: 1. Dyspnea both with elevated admission secondary to acquired pneumonia however on my exam I want a shot serial diastolic heart failure. At this time I will give him 80 of IV Lasix and monitor for response. At this time he does appear to be newly hypoxic and with a new O2 requirement and somewhat volume overloaded. The patient normally takes torsemide at home but mostly has not been compliant with her regular 2 g sodium diet over the holidays. For the time being we'll also continue treatment with pneumonia for Suprax azithromycin. His cultures 2. Pancytopenia appears to be somewhat chronic however he has not had hematology evaluation for this and do recommend he undergo this sooner rather than later in the outpatient setting and is suspicious for some myeloproliferative disorder although peripheral smear and iron studies have not revealed any etiology as of yet. The patient is on iron replacement 3. 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 Atrial fibrillation: The patient is not on anticoagulation secondary to history of GI bleed he is on bisoprolol and digoxin 5. Gout patient is on cold seen and allopurinol. 6. Gastroesophageal reflux disease: The patient is on omeprazole and Carafate 7. Coronary artery disease the patient is on an aspirin and beta nya and statin DISPOSITION: We'll continue to optimize patient's respiratory status and try to get him back to his baseline respiratory status prior disposition him. VS, I&O, 24H, Fishbone VS, I&O, 24H, Fishbone Vital Signs Date Time Temp Pulse Resp B/P Pulse Ox O2 Delivery O2 Flow Rate FiO2 04/28/16 08:56 Nasal Cannula 2.0 04/28/16 08:49 85 124/62 04/28/16 07:20 98.5 24 96 I&O- Last 24 Hours up to 6 AM 04/28/16 06:00 Intake Total 100 ml Output Total 0 ml Balance 100 ml Laboratory Tests 2 04/27/16 16:34: Anion Gap 12, Anisocytosis 1+, Atypical Lymphocytes 8H, B-Type Natriuretic Peptide 316H, Blood Urea Nitrogen 23H, Creatinine 1.20, Sodium Level 135L, Potassium Level 3.2L, Chloride Level 93L, Carbon Dioxide Level 30, Calcium Level 9.1, Total Creatine Kinase 73, Creatine Kinase MB 1.0, Creatine Kinase MB Relative Index 1.36, Glomerular Filtration Rate > 60.0, Lymphocytes (Manual) 18 , Monocytes (Manual) 22H, Neutrophils 52, Platelet Estimate DECREASED, Smudge Cells 1+, Troponin I 0.05 04/27/16 16:39: Arterial Blood pH 7.500H, Arterial Blood Partial Pressure CO2 32.9L, Arterial Blood Partial Pressure O2 68.2L, Arterial Blood Total CO2 26.1, Arterial Blood HCO3 25.1, Arterial Blood Base Excess 2.3H, Arterial Blood Oxygen Saturation 92.6L, Blood Gas Bicarbonate Standard 26.4H, Oxygen Delivery Device NASAL ZAID 04/27/16 20:03: Urine Amorphous Sediment , Urine Appearance CLEAR, Urine Color YELLOW, Urine pH 5.0, Urine Specific [place] 1.010, Urine Protein NEGATIVE, Urine Glucose (UA) NEGATIVE, Urine Ketones NEGATIVE, Urine Urobilinogen 0.2, Urine Bilirubin NEGATIVE, Urine Leukocyte Esterase NEGATIVE, Urine Bacteria (Auto) NEGATIVE, Urine Blood NEGATIVE, Urine Calcium Carbonate Cryst(Auto) , Urine Calcium Oxalate Cryst (Auto) , Urine Calcium Phosphate [place] (Auto) , Urine Cellular Casts , Urine Cystine Crystals , Urine Granular Casts (Auto) , Urine Hyaline Casts (Auto) 5, Urine Leucine Crystals , Urine Mucus (Auto) SMALL, Urine Nitrite NEGATIVE, Urine Oval Fat Bodies (Auto) , Urine RBC (Auto) 3, Urine Renal Epithelial Cells , Urine Sperm (Auto) , Urine Squamous Epithelial Cells 0 , Urine Transitional Epithelial Cells , Urine Trichomonas (Auto) , Urine Triple Phosphate Cryst (Auto) , Urine Tyrosine Crystals , Urine Uric Acid Crystals ( Auto) , Urine WBC (Auto) 0, Urine Waxy Casts (Auto) , Urine Yeast-Like Cells ( Auto) 04/27/16 22:29: Bedside Glucose (Misc Panel) 125H 04/28/16 02:58: Anion Gap 11, Blood Urea Nitrogen 22H, Creatinine 1.13, Sodium Level 136, Potassium Level 3.4L, Chloride Level 94L, Carbon Dioxide Level 31, Calcium Level 8.7L, Glomerular Filtration Rate > 60.0 04/28/16 07:32: Troponin I 0.04 Laboratory Tests 04/27/16 16:34 Calcium Level 9.1, Total Creatine Kinase 73, Red Blood Count 3.86 L, Mean Corpuscular Volume 87.3, Mean Corpuscular Hemoglobin 30.3, Mean Corpuscular Hemoglobin Concent 34.7, Red Cell Distribution Width 16.3 H 04/28/16 02:58 Calcium Level 8.7 L, Red Blood Count 3.61 L, Mean Corpuscular Volume 88.5, Mean Corpuscular Hemoglobin 29.5, Mean Corpuscular Hemoglobin Concent 33.4, Red Cell Distribution Width 17.3 H Microbiology 04/27/16 Blood Culture, Received Pending 04/27/16 Blood Culture, Received Pending 04/27/16 Influenza Virus Type A Antigen - Final, Complete 04/27/16 Influenza Virus Type B Antigen - Final, Complete 04/27/16 Urine Culture, Received Pending RICKEY SEAY MD Apr 28, 2016 11:10
[2016-04-28 11:28] LABS: MAGNESIUM LEVEL 2.1 MG/DL (1.8-2.4)
[2016-04-28 12:00] VITALS: BP 130/63
[2016-04-28 16:00] VITALS: BP 113/72
[2016-04-28 20:00] VITALS: BP 128/65
[2016-04-28] MEDS: SIMVASTATIN 40 MG TAB PO SCH (21:37)
[2016-04-28] MEDS: SUCRALFATE 1 GM TAB PO SCH (21:38)
[2016-04-29] VITALS (7 sets, daily range): BP systolic 106–141; BP diastolic 56–86
[2016-04-29] MEDS: IPRATROPIUM 0.5MG/ALBUTEROL 2.5MG INH SOL UD 3ML (DUONEB)(J7620) NEB SCH ×4 (02:00→19:42)
[2016-04-29] MEDS: cefTRIAXone SOD 1 GM in D5W MINI-BAG PLUS 50 ML IV SCH ×2 (05:37→17:29)
[2016-04-29 06:11] LABS: ANION GAP 10 MEQ/L (8-16); BLOOD UREA NITROGEN 21 MG/DL (7-18); CARBON DIOXIDE LEVEL 32 MEQ/L (21-32); CHLORIDE LEVEL 97 MEQ/L (98-107); CREATININE FOR GFR 1.15 MG/DL (0.70-1.30); GLOMERULAR FILTRATION RATE > 60.0 (>35); GLUCOSE, FASTING 198 MG/DL (83-110); SODIUM LEVEL 139 MEQ/L (136-145)
[2016-04-29 06:30] LABS: MEAN CORPUSCULAR HEMOGLOBIN 30.3 pg (27.0-33.0); MEAN CORPUSCULAR HGB CONC 33.7 g/dl (32.0-36.5); RED CELL DISTRIBUTION WIDTH 16.4 % (11.5-14.5); WHITE BLOOD COUNT 2.6 K/mm3 (4.0-10.0)
[2016-04-29] MEDS: HumaLOG INSULIN (NovoLOG) PER UNIT SC SCH ×4 (07:50→20:34)
[2016-04-29] MEDS: AZITHROMYCIN 250 MG TAB PO SCH (08:28)
[2016-04-29] MEDS: MIRALAX *UNIT DOSE* 17GM PACKET PO SCH (08:28)
[2016-04-29] MEDS: ASPIRIN 81 MG ENTERIC TAB PO SCH (08:28)
[2016-04-29] MEDS: COLCHICINE 0.6 MG TAB PO SCH (08:28)
[2016-04-29] MEDS: FERROUS GLUCONATE 324 MG TAB PO SCH (08:28)
[2016-04-29] MEDS: ALLOPURINOL 100 MG TAB PO SCH (08:28)
[2016-04-29] MEDS: GABAPENTIN 400 MG CAP PO SCH ×2 (08:28→20:31)
[2016-04-29] MEDS: DIGOXIN 0.125 MG TAB PO SCH (08:29)
[2016-04-29] MEDS: OMEPRAZOLE 20 MG CAP PO SCH ×2 (08:29→20:31)
[2016-04-29] MEDS: OMEGA-3 1050MG CAPSULE PO SCH (08:30)
[2016-04-29] MEDS: BISOPROLOL FUMARATE 5 MG TAB PO SCH ×2 (08:30→20:34)
[2016-04-29] MEDS: SENNA 8.6 MG TAB (SENOKOT) PO SCH (08:30)
[2016-04-29] MEDS: MULTIVITAMINS/MINERALS THERAP 1 TAB PO SCH (08:30)
--- NOTE | 2016-04-29 09:18 | IPNPDOC ---
Date of Service/Time 04/29/16 Progress Note SUBJECTIVE: The patient tells me that he is feeling better he is less short of breath he is no longer requiring oxygen at rest OBJECTIVE: PHYSICAL EXAMINATION: VITAL SIGNS: New O2 however today he has not required at rest and only with activity he began to desaturate into the high 80s rather quickly he recovers quickly with rest otherwise Please see below. GENERAL: He is a very pleasant elderly man sitting in his recliner eating breakfast he does not appear to be in acute distress HEENT: Is a very round reactive to light is difficult to assess for any elevation central venous pressure secondary to body habitus CARDIOVASCULAR: Is 1 S2 regular. RESPIRATORY: Bibasilar Rales improved from previous days exam. ABDOMINAL: Obese EXTREMITIES: 1+ edema bilaterally LABORATORY DATA: Pancytopenia stable otherwise Please see below. MICROBIOLOGY: Flu swab was negative blood cultures and urine cultures are negative otherwise Please see below. IMAGING: No new imaging DVT prophylaxis ordered?: Sequentials and teds no pharmacological agents secondary to thrombocytopenia ASSESSMENT AND PLAN: This is a 81-year-old man with dyspnea PROBLEMS: 1. Dyspnea likely secondary to decompensated diastolic heart failure and less likely community acquired pneumonia or the patient did improve after 80 of IV Lasix yesterday I will continue him on 80 of IV Lasix twice a day for today and continue to diuresis and monitoring his renal function and electrolytes. The time being I'll continue him on antibiotics as well as he does appear to be improving quite significantly from yesterday. He does not normally require oxygen at home suspect that secondary to dietary restriction on adherence over the holidays he is had decompensation of his diastolic heart failure and should be able to return with to his previous respiratory baseline status within the next 24-48 hours. 2. Pancytopenia appears to be chronic however he has not had hematology evaluation for this and I do recommend he undergo this sooner rather than later in the outpatient setting and is suspicious for some myeloproliferative disorder although peripheral smear and iron studies have not revealed any etiology as of yet. The patient is on iron replacement 3. 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 Atrial fibrillation: The patient is not on anticoagulation secondary to history of GI bleed he is on bisoprolol and digoxin 5. Gout patient is on cold seen and allopurinol. 6. Gastroesophageal reflux disease: The patient is on omeprazole and Carafate 7. Coronary artery disease the patient is on an aspirin and beta nya and statin DISPOSITION: The patient did mention me that he would consider leaving the hospital AGAINST MEDICAL ADVICE risks and benefits were explained him that he currently has an oxygen requirement is not able to get his medications from pharmacy as he is still decompensated heart failure and feels though it would be risking his health and his life. Leave the hospital this was explained to him at length. The patient will discuss with his family further about state continuing care VS, I&O, 24H, Fishbone VS, I&O, 24H, Fishbone Vital Signs Date Time Temp Pulse Resp B/P Pulse Ox O2 Delivery O2 Flow Rate FiO2 04/29/16 08:30 85 110/56 04/29/16 07:47 Room Air 04/29/16 07:20 96.8 18 97 04/28/16 16:00 2.0 I&O- Last 24 Hours up to 6 AM 04/29/16 06:00 Intake Total 820 ml Output Total 1525 ml Balance -705 ml Laboratory Tests 2 04/28/16 11:27: Bedside Glucose (Misc Panel) 205H 04/28/16 16:26: Bedside Glucose (Misc Panel) 198H 04/28/16 21:19: Bedside Glucose (Misc Panel) 270H 04/29/16 05:36: Anion Gap 10, Blood Urea Nitrogen 21H, Creatinine 1.15, Sodium Level 139, Potassium Level 4.0, Chloride Level 97L, Carbon Dioxide Level 32, Calcium Level 9.0, Glomerular Filtration Rate > 60.0 Laboratory Tests 04/29/16 05:36 Calcium Level 9.0, Red Blood Count 3.60 L, Mean Corpuscular Volume 90.0, Mean Corpuscular Hemoglobin 30.3, Mean Corpuscular Hemoglobin Concent 33.7, Red Cell Distribution Width 16.4 H Microbiology 04/27/16 Blood Culture - Preliminary, Resulted No growth after 24 hours . All specim... 04/27/16 Blood Culture - Preliminary, Resulted No growth after 24 hours . All specim... 04/27/16 Influenza Virus Type A Antigen - Final, Complete 04/27/16 Influenza Virus Type B Antigen - Final, Complete 04/27/16 Urine Culture - Final, Complete RICKEY SEAY MD Apr 29, 2016 09:18
[2016-04-29] MEDS: FUROSEMIDE 100 MG/10 ML VIAL (J1940) IV SCH ×2 (09:31→16:57)
[2016-04-29 18:26] LABS: ANION GAP 13 MEQ/L (8-16); BLOOD UREA NITROGEN 21 MG/DL (7-18); CALCIUM LEVEL 8.4 MG/DL (8.8-10.2); CARBON DIOXIDE LEVEL 28 MEQ/L (21-32); CHLORIDE LEVEL 93 MEQ/L (98-107); CREATININE FOR GFR 1.19 MG/DL (0.70-1.30); GLOMERULAR FILTRATION RATE > 60.0 (>35); GLUCOSE, FASTING 230 MG/DL (83-110); MAGNESIUM LEVEL 2.1 MG/DL (1.8-2.4); POTASSIUM SERUM 3.5 MEQ/L (3.5-5.1); SODIUM LEVEL 134 MEQ/L (136-145)
[2016-04-29] MEDS ORDERED: POTASSIUM CHLORIDE 10 MEQ SR TABLET PO ONE (18:45)
[2016-04-29] MEDS: SIMVASTATIN 40 MG TAB PO SCH (20:30)
[2016-04-29] MEDS: SUCRALFATE 1 GM TAB PO SCH (20:32)
--- NOTE | 2016-04-29 22:09 | EDDOCDS ---
Nurse's Notes [facility] Name: Cheli Fleming Age: 81 yrs Sex: Male : 1935 Arrival Date: 04/27/2016 Time: 16:09 Bed 9 Private MD: Jordan Diagnosis: Fever of other and unknown origin;Acute upper respiratory infection, unspecified;Decreased white blood cell count;Thrombocytopenia, unspecified Presentation: 04/27 16:22 Presenting complaint: Patient states: states SOB and fatigue since 1999. Adult Sepsis ml6 Screening: Patient has new or worsening altered mentation (1 point). Patient's respiratory rate is less than 22. Systolic blood pressure is greater than 100. Patient has a qSOFA score of 1- Negative Sepsis Screen. Suicide/Homicide risk assessment- the patient denies having any suicidal and/or homicidal ideations and does not present with any other emotional, behavioral or mental health complaints. 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 Transition of care: patient was not received from another setting of care. 16:22 Method Of Arrival: Ambulance ml6 16:33 Acuity: SHIMON Level 3 ml6 Triage Assessment: 16:22 General: Appears in no apparent distress, Behavior is drowsy. Pain: Denies pain. ml6 Neurological: No deficits noted. Level of Consciousness is lethargic, Oriented to person, place, time. Cardiovascular: No deficits noted. Capillary refill < 3 seconds is brisk in bilateral fingers toes Heart tones S1 S2 present Edema is 1+ to left ankle and right ankle Pulses are all present. Rhythm is atrial fibrillation With PVC's Chest pain is denied. Respiratory: Onset: The symptoms/episode began/occurred yesterday, Airway is patent Respiratory effort is even, unlabored, Respiratory pattern is regular, symmetrical, Breath sounds are diminished bilaterally. Reports shortness of breath on exertion the patient has moderate shortness of breath. GI: No deficits noted. Abdomen is obese, Bowel sounds present X 4 quads. Abd is soft and non tender X 4 quads. Historical: - Allergies: Lipitor; - Home Meds: 1. aspirin 81 mg Oral chew 1 tab once daily (Last dose: 04/26/2016 08:00) 2. bisoprolol fumarate 5 mg oral tab 1 tab once daily (Last dose: 04/27/2016 08:00) 3. Carafate 1 gram Oral tab 1 tab 4 times per day (Last dose: 04/27/2016 08:00) 4. CoQ-10 30 mg oral cap daily (Last dose: 04/27/2016 08:00) 5. cyanocobalamin (vitamin B-12) 100 mcg oral tab daily (Last dose: 04/27/2016 08:00) 6. cyclosporine 25 mg Oral cap once daily (Last dose: 04/27/2016 08:00) 7. ferrous gluconate 324 mg (37.5 mg iron) Oral tab daily (Last dose: 04/27/2016 08:00) 8. Fish Oil 300-1,000 mg Oral cap daily (Last dose: 04/27/2016 08:00) 9. furosemide 20 mg Oral tab 3 tabs once daily until fluids are reduced (Last dose: 04/27/2016 08:00) 10. gabapentin 800 mg Oral tab twice a day (Last dose: 04/27/2016 08:00) 11. Humalog 8 Units before each meal 3 times daily Sub-Q three times a day (Last dose: 04/27/2016 12:00) 12. metformin 1,000 mg Oral tab 2 times per day (Last dose: 04/27/2016 08:00) 13. multivitamin Oral cap 1 tab daily (Last dose: 04/27/2016 08:00) 14. Prilosec 40 mg Oral cpDR 1 cap once daily (Last dose: 04/27/2016 08:00) 15. Restasis 0.05 % ophthalmic dpet 2 times per day (Last dose: 04/27/2016 08:00) 16. senna 8.6 mg oral cap 2 caps once daily (Last dose: 04/27/2016 08:00) 17. simvastatin 40 mg Oral tab 1 tab once daily (Last dose: 04/27/2016 08:00) 18. spironolactone 25 mg Oral tab 0.5 tab once daily (Last dose: 04/27/2016 08:00) 19. toujeo 48 Units titrate to maximum of 60 Units daily (Last dose: 04/27/2016 08:00) 20. Vit D 3 5000 unit daily (Last dose: 04/27/2016 08:00) - PMHx: CAD; Diabetes - NIDDM: controlled; Hypercholesterolemia; peripheral vascular disease; Sleep Apnea w/ CPAP; BBB; Atrial Fib; CKD 3; CHF; - PSHx: CABAG; Appendectomy; diviated septal repair; - The history from nurses notes was reviewed: but there are no nursing notes, or only partial notes available at the time of my charting. - Social history: Smoking status: Patient states was never smoker of tobacco. No barriers to communication noted, Speaks appropriately for age. - Hospitalizations: : The patient was recently seen at [facility], and discharged 4 month(s) ago, for unrelated complaints. - : The pt / caregiver states he / she is not on anticoagulants. Home medication list is obtained from family members, Unable to Verify Home Med List with the patient / caregiver. - Immunization history:: All immunizations up-to-date. - Exposure Risk Screening:: None identified. - Family history: Not pertinent. - Social history:: the patient is a former smoker, the patient drinks alcohol, socially. Screenin:48 Screening information is obtained from the patient. Fall risk: No risks identified. ml6 Assistance ADL's: requires no assistance with activities of daily living. Abuse/DV Screen: The patient / caregiver reports he/she is: not in a situation that causes fear, pain or injury. Nutritional screening: No deficits noted. Advance Directives: Currently, there is a health care proxy. home support is adequate. Assessment: 16:22 General: see triage assessment. Cardiovascular: Capillary refill < 3 seconds is brisk ml6 in bilateral fingers toes Heart tones S1 S2 present Edema is 1+ to left ankle and right ankle Pulses are all present. Rhythm is atrial fibrillation With PVC's Chest pain is denied. 17:30 Reassessment: Patient appears in no apparent distress at this time. Patient states ml6 feeling better. Patient states symptoms have improved. patient ambulated with 2 assist 30 feet. . 18:30 Reassessment: Patient appears in no apparent distress at this time. Patient states ml6 feeling better. Patient states symptoms have improved. 20:10 General: Appears in no apparent distress. Neurological: Level of Consciousness is nn1 awake, alert. Cardiovascular: Rhythm is atrial fibrillation With PVC's. Respiratory: Airway is patent Respiratory effort is even, unlabored, Respiratory pattern is regular. 21:03 General: Appears in no apparent distress, to be sleeping. Behavior is appropriate for nn1 age, cooperative. General: Patient given jw jeannie, did not want food at this time. . Neurological:. Respiratory: Airway is patent Respiratory effort is even, unlabored, Respiratory pattern is regular. Derm: Skin is pink, warm & dry. Vital Signs: 16:22 BP 125 / 62; Pulse 85; Resp 20; Temp 100.9(O); Pulse Ox 93% ; Weight 100.7 kg; Height 5 jlf ft. 8 in. (172.72 cm); Pain 0/10; 18:00 BP 122 / 68; Pulse 87; Resp 14; Pulse Ox 97% on R/A; Pain 0/10; ml6 18:32 Temp 99.4(O); jlf 16:22 Body Mass Index 33.75 (100.70 kg, 172.72 cm) [facility] Vitals: 21:06 Log In Time: April 27, 2016 at 16:09. nn1 ED Course: 16:10 Patient visited by Ely Anaya, Dry Goods Clerk. lbd 16:10 Patient moved to Waiting lbd 16:11 Jordan is Private Physician. lbd 16:11 Patient moved to 9 lbd 16:17 Terry Tamayo MD is Attending Physician. pc 16:22 Patient visited by Constantino Comer PCA. jlf 16:22 Patient visited by Constantino Comer PCA. jlf 16:22 Inserted peripheral IV: 18gauge IV in right antecubital area and blood collected. ml6 Patient tolerated the procedure well. Labs drawn. (by ED staff). Sent per order to lab. Labs/Blood culture drawn. 16:27 Patient visited by Terry Tamayo MD. pc 16:33 Triage Initiated ml6 16:42 Patient visited by Constantino Comer PCA. jlf 16:43 Patient visited by Constantino Comer PCA. jlf 16:43 Pt greeted and oriented to ED. Patient advised of names of staff involved in care, [facility] location of call lenz, wait times and NPO status. Accompanied by Family Member, Patient has correct armband on for positive identification. Placed in gown. Bed in low position. Side rails up X2. shop tailor on. Pulse ox on. NIBP on. 16:43 EKG done. (by ED staff). Reviewed by Terry Tamayo MD. jlf 16:45 -Arterial Blood Gas Sent. rs5 16:48 The patient / caregiver is instructed regarding the plan of care and ED course. ml6 16:48 B-Type Natiuretic Peptide Sent. ml6 16:48 Basic Metabolic Profile Sent. ml6 16:48 CBC with Diff Sent. ml6 16:48 Cardiac Injury Profile Sent. ml6 16:48 Troponin Sent. ml6 16:58 Chest, 1 View Returned. EDMS 17:04 Patient visited by Maximilian Guerin RN. ml6 17:14 [facility] Payment Agreement was scanned into [employer] and attached to record. gjb 17:26 DIFFERENTIAL NO CHARGE Sent. ml6 17:27 Patient visited by Maximilian Guerin RN. ml6 17:55 Patient visited by Constantino Comer PCA. jlf 18:29 Patient visited by Constantino Comer PCA. jlf 18:29 Notified attending ED physician of ambulated patient per Dr. thrasher. Patients sats jlf droppped to 91% on RA, prior to that he was standing at 94%. patient was very unstable while trying to walk to the bathroom, needing assistance from this screen writer and patients son. Notified Dr. Tamayo. . 18:31 Patient visited by Constantino Comer PCA. jlf 18:32 Patient visited by Constantino Comer PCA. jlf 18:41 Valentin Winston is Hospitalizing Provider. pc 20:52 EKG-ADULT Returned. EDMS 21:06 No procedures done that require assistance. nn1 04/28 11:35 ECG/EKG was scanned into [employer] and attached to record. gb Administered Medications: 04/27 16:49 Drug: Acetaminophen 650 mg [acetaminophen 325 mg tablet (2 tabs)] Route: PO; ml6 18:33 Drug: NS 0.9% 1000 ml [sodium chloride 0.9 % intravenous solution] Route: IV; Rate: 100 ml6 mL/hr; Site: left antecubital; 20:10 Drug: cefTRIAXone 1 grams [ceftriaxone 250 mg solution for injection] Route: IVPB; nn1 Infused Over: 30 mins; Site: right antecubital; 21:05 Follow up: IV Status: Completed infusion nn1 RT: 16:45 ABG's drawn from left radial artery pressure held for 5 minutes no bleeding noted rs5 pressure bandage applied specimen sent pt. tolerated well. Order Results: Lab Order: -Arterial Blood Gas; [facility] 04/27/16 16:39 Test: ABG pH (ARTERIAL); Value: 7.500; Range: 7.350-7.450; Abnormal: Above high normal; Units: UNITS; Status: F Test: ABG PARTIAL PRESSURE CO2; Value: 32.9; Range: 35.0-45.0; Abnormal: Below low normal; Units: mmHg; Status: F Test: ABG PARTIAL PRESSURE O2; Value: 68.2; Range: 75.0-100.0; Abnormal: Below low normal; Units: mmHg; Status: F Test: ABG TOTAL CO2; Value: 26.1; Range: 23.0-31.0; Units: MEQ/L; Status: F Test: ABG HCO3; Value: 25.1; Range: 22.0-26.0; Units: MEQ/L; Status: F Test: ABG BASE EXCESS; Value: 2.3; Range: -2.0-2.0; Abnormal: Above high normal; Status: F Test: ABG STANDARD HCO3; Value: 26.4; Range: 22.0-26.0; Abnormal: Above high normal; Units: MEQ/L; Status: F Test: ABG O2 SATURATION; Value: 92.6; Range: 95.0-99.0; Abnormal: Below low normal; Units: %; Status: F Test: ABG DEVICE; Value: NASAL ZAID; Status: F Lab Order: B-Type Natiuretic Peptide; [facility] 04/27/16 16:34 Test: BRAIN NATRIURETIC PEPTIDE; Value: 316; Range: <100; Abnormal: Above high normal; Units: PG/ML; Status: F Lab Order: Basic Metabolic Profile; [facility] 04/27/16 16:34 Test: GLUCOSE, FASTING; Value: 180; Range: 83-110; Abnormal: Above high normal; Units: MG/DL; Status: F Test: BLOOD UREA NITROGEN; Value: 23; Range: 7-18; Abnormal: Above high normal; Units: MG/DL; Status: F Test: CREATININE FOR GFR; Value: 1.20; Range: 0.70-1.30; Units: MG/DL; Status: F Test: GLOMERULAR FILTRATION RATE; Value: > 60.0; Range: >35; Status: F Test: SODIUM LEVEL; Value: 135; Range: 136-145; Abnormal: Below low normal; Units: MEQ/L; Status: F Test: POTASSIUM SERUM; Value: 3.2; Range: 3.5-5.1; Abnormal: Below low normal; Units: MEQ/L; Status: F Test: CHLORIDE LEVEL; Value: 93; Range: 98-107; Abnormal: Below low normal; Units: MEQ/L; Status: F Test: CARBON DIOXIDE LEVEL; Value: 30; Range: 21-32; Units: MEQ/L; Status: F Test: ANION GAP; Value: 12; Range: 8-16; Units: MEQ/L; Status: F Test: CALCIUM LEVEL; Value: 9.1; Range: 8.8-10.2; Units: MG/DL; Status: F Test Note: ; Units are mL/min/1.73 m2 Chronic Kidney Disease Staging per NKF: Stage I & II GFR >=60 Normal to Mildly Decreased Stage III GFR 30-59 Moderately Decreased Stage IV GFR 15-29 Severely Decreased Stage V GFR <15 Very Little GFR Left ESRD GFR <15 on VERIFYING MACHINE OPERATOR Lab Order: CBC with Diff; SPEC'M 04/27/16 16:34 Test: WHITE BLOOD COUNT; Value: 3.3; Range: 4.0-10.0; Abnormal: Below low normal; Units: K/mm3; Status: F Test: RED BLOOD COUNT; Value: 3.86; Range: 4.30-6.10; Abnormal: Below low normal; Units: M/mm3; Status: F Test: HEMOGLOBIN; Value: 11.7; Range: 14.0-18.0; Abnormal: Below low normal; Units: g/dl; Status: F Test: HEMATOCRIT; Value: 33.7; Range: 42.0-52.0; Abnormal: Below low normal; Units: %; Status: F Test: MEAN CORPUSCULAR VOLUME; Value: 87.3; Range: 80.0-96.0; Units: fl; Status: F Test: MEAN CORPUSCULAR HEMOGLOBIN; Value: 30.3; Range: 27.0-33.0; Units: pg; Status: F Test: MEAN CORPUSCULAR HGB CONC; Value: 34.7; Range: 32.0-36.5; Units: g/dl; Status: F Test: RED CELL DISTRIBUTION WIDTH; Value: 16.3; Range: 11.5-14.5; Abnormal: Above high normal; Units: %; Status: F Test: PLATELET COUNT, AUTOMATED; Value: 85; Range: 150-450; Abnormal: Below low normal; Units: k/mm3; Status: F Test: NEUTROPHILS; Value: 52; Range: 35-75; Units: %; Status: F Test: LYMPHOCYTES; Value: 18; Range: 16-52; Units: %; Status: F Test: MONOCYTES; Value: 22; Range: 0-8; Abnormal: Above high normal; Units: %; Status: F Test: ATYPICAL LYMPH; Value: 8; Range: 0-5; Abnormal: Above high normal; Units: %; Status: F Test: ANISOCYTOSIS; Value: 1+; Status: F Test: SMUDGE CELLS; Value: 1+; Status: F Lab Order: Cardiac Injury Profile; [facility] 04/27/16 16:34 Test: CPK CREATINE PHOSPHOKINASE; Value: 73; Range: 39-308; Units: U/L; Status: F Test: CK-MB VALUE MASS; Value: 1.0; Range: 0.0-3.6; Units: NG/ML; Status: F Test: MB/CK RELATIVE INDEX; Value: 1.36; Range: < OR =4; Status: F Test Note: ; DIAGNOSIS CRITERIA MMB ng/ml Relative Index (RI) NON-AMI < or = 5 N/A AGOSTO ZONE > 5 < or = 4 AMI > 5 > 4 Lab Order: Troponin; [facility] 04/27/16 16:34 Test: TROPONIN I; Value: 0.05; Range: < 0.10; Units: NG/ML; Status: F Test Note: ; Troponin I Reference Interval for [employer] LOCI: 99th Percentile= 0.00-0.045 ng/ml Risk Stratification: <= 0.10 ng/ml Decreased Risk for Adverse Clinical Events. 0.10-1.50 ng/ml Increased Risk for Adverse Clinical Events. Evaluation of additional criterion and/or repeat testing in 2-6 hours is suggested to rule out myocardial damage. >= 1.50 ng/ml Indicative of Myocardial Injury. Lab Order: -Influenza A&B Rapid Antigen - Nose; [facility] 04/27/16 16:34 Test: INFLUENZA A RAPID SCR by ICA; Value: INFLUENZA A RESULTS NEGATIVE; Status: F Test: INFLUENZA A RAPID SCR by ICA; Value: Comments:; Status: F Test: INFLUENZA B RAPID SCR by ICA; Value: INFLUENZA B RESULTS NEGATIVE; Status: F Test Note: ; The Influenza test is a direct rapid immunoassay for the qualitative detection of Influenza viral antigen. Cell culture (Viral Culture) testing should be considered to confirm NEGATIVE results and to assist in detecting other viruses that can provide similar clinical symptoms. Please contact the lab within 24 hours ([phone]) if confirmatory testing is desired. Lab Order: PLATELET ESTIMATE; SPEC'M 04/27/16 16:34 Test: PLATELET ESTIMATE; Value: DECREASED; Range: NORMAL; Status: F Lab Order: URINALYSIS; [facility] 04/27/16 20:03 Test: APPEARANCE, URINE; Value: CLEAR; Range: CLEAR; Status: F Test: COLOR, URINE; Value: YELLOW; Range: YELLOW; Status: F Test: PH,URINE; Value: 5.0; Range: 5.0-9.0; Units: UNITS; Status: F Test: SPECIFIC GRAVITY URINE AUTO; Value: 1.010; Range: 1.002-1.035; Status: F Test: PROTEIN, URINE AUTO; Value: NEGATIVE; Range: NEGATIVE; Units: mg/dL; Status: F Test: GLUCOSE, URINE (UA) AUTO; Value: NEGATIVE; Range: NEGATIVE; Units: mg/dL; Status: F Test: KETONE, URINE AUTO; Value: NEGATIVE; Range: NEGATIVE; Units: mg/dL; Status: F Test: UROBILINOGEN, URINE AUTO; Value: 0.2; Range: 0.0-2.0; Units: mg/dL; Status: F Test: BILIRUBIN, URINE AUTO; Value: NEGATIVE; Range: NEGATIVE; Status: F Test: NITRITE, URINE AUTO; Value: NEGATIVE; Range: NEGATIVE; Status: F Test: LEUKOCYTE ESTERASE, URINE AUTO; Value: NEGATIVE; Range: NEGATIVE; Status: F Test: BLOOD, URINE BLOOD; Value: NEGATIVE; Range: NEGATIVE; Status: F Test: WBC, URINE AUTO; Value: 0; Range: 0-3; Units: /HPF; Status: F Test: RBC, URINE AUTO; Value: 3; Range: 0-3; Units: /HPF; Status: F Test: BACTERIA, URINE AUTO; Value: NEGATIVE; Range: NEGATIVE; Status: F Test: SQUAMOUS EPITHELIAL CELL UR AU; Value: 0; Range: 0-6; Units: /HPF; Status: F Test: MUCUS, URINE; Value: SMALL; Range: NEGATIVE; Status: F Test: HYALINE CAST, URINE AUTO; Value: 5; Range: 0-1; Units: /LPF; Status: F Radiology Order: Chest, 1 View Test: Chest, 1 View REASON FOR EXAMINATION: fever; Clinical: Fever.; ; Technique: 11/06/2015.; ; Findings:; Stable cardiomegaly and evidence for prior sternotomy and CABG again noted. Lung; correia demonstrate chronic-appearing interstitial changes. Subtle superimposed; atelectasis cannot be excluded. No obvious effusion. No pneumothorax. Skeletal; structures intact.; ; Impression:; Cannot exclude superimposed basilar atelectasis.; ; ; Signed by; Abraham Spivey MD 04/27/2016 04:47 P; Radiology Order: EKG-ADULT Test: EKG-ADULT REASON FOR EXAMINATION: Shortness of Breath; Stationary ECG Study; [facility] - ED; ; Test Date: 2016-04-27; Pat Name: CHELI FLEMING Department:; Room: -; Gender: M Plush Cutter: faviola; : 1935 Requested By: Terry Corbin; Order Number: [id number] Reading MD: Melissa Mcmahon; Measurements; Intervals [place]; Rate: 77 P:; VA: 0 QRS: 32; QRSD: 169 T: 0; QT: 426; QTc: 485; Interpretive Statements; ATRIAL FIBRILLATION; INDETERMINATE AXIS; RIGHT BUNDLE BRANCH BLOCK; POSSIBLE ANTERIOR MYOCARDIAL INFARCTION, OF INDETERMINATE AGE; ; Electronically Signed On 04-27-2016 20:39:30 EST by Melissa Mcmahon; Outcome: 18:42 Decision to Hospitalize by Provider. 21:05 Discharge Assessment: Patient awake, alert and oriented x 3. No cognitive and/or nn1 functional deficits noted. Patient verbalized understanding of disposition instructions. 21:05 Discharge Assessment: patient administered narcotics - no. The following High Risk nn1 Discharge criteria are identified: None. Admitted to PCU accompanied by nurse, accompanied by tech, family with patient, via stretcher, with oxygen, on monitor, with chart. Condition: stable. No special radiology studies were completed. Admission hand-off: Report Faxed Fax receipt verified by ZE Page . Property :Personal belongings accompany Pt. 21:08 Patient left the ED. nn1 Signatures: Dispatcher [employer] EDMS Terry Tamayo MD MD pc Daly, Linda, Dry Goods Clerk Unit lbd Christelle Manzano, Reg Reg Maximilian Oliva, RN RN ml6 Sergio Bae,RT RT rs5 Constantino Comer, CONTENT WRITER CONTENT WRITER Joe Escoto RN RN nn1 Rosa Whitt Chart Complete MTDD
--- NOTE | 2016-04-29 22:09 | EDDOCDS ---
Physician Documentation [facility] Name: Oswaldo Bearden Age: 81 yrs Sex: Male : 1935 Arrival Date: 04/27/2016 Time: 16:09 Bed 9 Private MD: Jordan Disposition: 04/27 18:39 Critical Care: Critical care not applicable. pc Disposition: 04/27/16 18:42 Hospitalization ordered by Valentin Winston for Inpatient Admission. Preliminary diagnosis are Fever of other and unknown origin, Acute upper respiratory infection, unspecified, Decreased white blood cell count, Thrombocytopenia, unspecified. - Bed requested for PCU. - Status is Inpatient Admission. nn1 - Condition is Stable. - Problem is new. - Symptoms have improved. HPI: 16:31 This 81 yrs old Male presents to ER with complaints of Breathing Difficulty. pc 16:31 The history is obtained from the patient, the patient's family/friend. He was well 2 pc days ago and was seen at his PCP for follow up. He was well yesterday but awoke this morning and was found to be drenched in sweat and confused. He felt very warm but did not have a temp recorded. He has had a slight cough. He has not had any nausea or vomiting. 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 He was seen at his PCP this afternoon and found to be febrile and have a PO of only 84% on room. EMS was called and he was transported here. He arrives BLS, with a PO of 93% on room air. He denies any chest pain, headache, SOB, sore throat, abdominal pain, n/v/d, swollen joints or reddened areas. 16:36 At their worst, the symptoms were moderate. In the emergency department, the symptoms pc are mild. The patient has experienced similar episodes in the past, several times. 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 Historical: - Allergies: Lipitor; - Home Meds: 1. aspirin 81 mg Oral chew 1 tab once daily (Last dose: 04/26/2016 08:00) 2. bisoprolol fumarate 5 mg oral tab 1 tab once daily (Last dose: 04/27/2016 08:00) 3. Carafate 1 gram Oral tab 1 tab 4 times per day (Last dose: 04/27/2016 08:00) 4. CoQ-10 30 mg oral cap daily (Last dose: 04/27/2016 08:00) 5. cyanocobalamin (vitamin B-12) 100 mcg oral tab daily (Last dose: 04/27/2016 08:00) 6. cyclosporine 25 mg Oral cap once daily (Last dose: 04/27/2016 08:00) 7. ferrous gluconate 324 mg (37.5 mg iron) Oral tab daily (Last dose: 04/27/2016 08:00) 8. Fish Oil 300-1,000 mg Oral cap daily (Last dose: 04/27/2016 08:00) 9. furosemide 20 mg Oral tab 3 tabs once daily until fluids are reduced (Last dose: 04/27/2016 08:00) 10. gabapentin 800 mg Oral tab twice a day (Last dose: 04/27/2016 08:00) 11. Humalog 8 Units before each meal 3 times daily Sub-Q three times a day (Last dose: 04/27/2016 12:00) 12. metformin 1,000 mg Oral tab 2 times per day (Last dose: 04/27/2016 08:00) 13. multivitamin Oral cap 1 tab daily (Last dose: 04/27/2016 08:00) 14. Prilosec 40 mg Oral cpDR 1 cap once daily (Last dose: 04/27/2016 08:00) 15. Restasis 0.05 % ophthalmic dpet 2 times per day (Last dose: 04/27/2016 08:00) 16. senna 8.6 mg oral cap 2 caps once daily (Last dose: 04/27/2016 08:00) 17. simvastatin 40 mg Oral tab 1 tab once daily (Last dose: 04/27/2016 08:00) 18. spironolactone 25 mg Oral tab 0.5 tab once daily (Last dose: 04/27/2016 08:00) 19. toujeo 48 Units titrate to maximum of 60 Units daily (Last dose: 04/27/2016 08:00) 20. Vit D 3 5000 unit daily (Last dose: 04/27/2016 08:00) - PMHx: CAD; Diabetes - NIDDM: controlled; Hypercholesterolemia; peripheral vascular disease; Sleep Apnea w/ CPAP; BBB; Atrial Fib; CKD 3; CHF; - PSHx: CABAG; Appendectomy; diviated septal repair; - The history from nurses notes was reviewed: but there are no nursing notes, or only partial notes available at the time of my charting. - Social history: Smoking status: Patient states was never smoker of tobacco. No barriers to communication noted, Speaks appropriately for age. - Hospitalizations: : The patient was recently seen at [facility], and discharged 4 month(s) ago, for unrelated complaints. - : The pt / caregiver states he / she is not on anticoagulants. Home medication list is obtained from family members, Unable to Verify Home Med List with the patient / caregiver. - Immunization history:: All immunizations up-to-date. - Exposure Risk Screening:: None identified. - Family history: Not pertinent. - Social history:: the patient is a former smoker, the patient drinks alcohol, socially. ROS: 16:36 All systems are negative except as listed. pc Exam: 16:39 General Appearance: no acute distress, alert. pc 16:39 EENT: ears, nose and throat normal, pale conjunctiva, mucous membranes dry. 16:39 Neck: The exam reveals no acute abnormalities. ROM is normal and painless. No nuchal rigidity is noted.. 16:39 Respiratory: no respiratory distress, normal breath sounds, PO 93% on RA. 16:39 CVS: regular pulse rate, normal S1 and S2, no murmurs, strong peripheral pulses, normal capillary refill, irregularly irregular 16:39 Abdomen: soft, non-tender, no organomegaly, normal bowel sounds. 16:39 Back: normal inspection. 16:39 : bladder is non-distended, non-tender. 16:39 Skin: skin color is normal, warm, dry. 16:39 Extremities: with pedal edema Other trace bilaterally 16:39 Neuro: oriented x 3, cranial nerves normal as tested, no motor deficits, no sensory deficits. 16:39 Psych: normal mood. Vital Signs: 16:22 BP 125 / 62; Pulse 85; Resp 20; Temp 100.9(O); Pulse Ox 93% ; Weight 100.7 kg / 222.01 jlf lbs; Height 5 ft. 8 in. (172.72 cm); Pain 0/10; 18:00 BP 122 / 68; Pulse 87; Resp 14; Pulse Ox 97% on R/A; Pain 0/10; ml6 18:32 Temp 99.4(O); jlf 16:22 Body Mass Index 33.75 (100.70 kg, 172.72 cm) [facility] MDM: 16:28 -Blood Culture (Adults Only), peripheral from different site, or from device/port/PICC pc etc. if present ordered. 16:28 Transmissions Systems Operator/Pulse Ox/q 15 min VS ordered. pc 16:28 IV Saline Lock ordered. pc 16:28 Rhythm Strip to chart ordered. pc 16:28 Obtain sample by nasopharyngeal swab ordered. pc 16:29 -Arterial Blood Gas Ordered. EDMS 16:29 -Blood Culture Ordered. EDMS 16:29 B-Type Natiuretic Peptide Ordered. EDMS 16:29 Basic Metabolic Profile Ordered. EDMS 16:29 CBC with Diff Ordered. EDMS 16:29 Cardiac Injury Profile Ordered. EDMS 16:29 Troponin Ordered. EDMS 16:29 -Influenza A&B Rapid Antigen - Nose Ordered. EDMS 16:29 Chest, 1 View Ordered. EDMS 16:30 ECG WITH READING ER PHYS+CARDIAG ordered. EDMS 16:30 -Blood Culture (Adults Only), peripheral from different site, or from device/port/PICC lbd etc. if present complete. 16:33 BLOOD CULTURES Ordered. EDMS 16:42 Differential Diagnosis: febrile illness with cough r/o pneumonia, influenza; AFib no pc longer on anticoagulants due to UGI bleeding history. Plan: labs, EKG, CXR. Test interpretation: EKG. 16:45 Acetaminophen Tablet 650 mg PO once ordered. pc 17:03 Test interpretation: LAB - all labs as ordered have been reviewed, interpreted and pc considered in the overall management of the clinical presentation; X-RAY - interpreted by Radiologist and personally reviewed, 1 view chest ?bibasilar atelectasis, else nad. 17:04 -Arterial Blood Gas Reviewed. pc 17:04 -Influenza A&B Rapid Antigen - Nose Reviewed. pc 17:04 Chest, 1 View Reviewed. pc 17:10 Financial registration complete. gjb 17:14 [facility] Payment Agreement was scanned into [employer] and attached to record. gjb 17:21 DIFFERENTIAL NO CHARGE Ordered. EDMS 17:21 PLATELET ESTIMATE Ordered. EDMS 17:42 B-Type Natiuretic Peptide Reviewed. pc 17:42 Basic Metabolic Profile Reviewed. pc 17:42 CBC with Diff Reviewed. pc 17:42 Cardiac Injury Profile Reviewed. pc 17:42 Troponin Reviewed. pc 17:43 PLATELET ESTIMATE Reviewed. pc 17:46 Ambulate Patient wt Pulse Oximetry ordered. pc 17:46 Repeat Temperature - Oral: Inform provider of result ordered. pc 18:10 CBC with Diff Reviewed. pc 18:10 PLATELET ESTIMATE Reviewed. pc 18:33 NS 0.9% 1000 ml IV at 100 mL/hr continuous ordered. pc 18:33 cefTRIAXone 1 grams IVPB once over 30 mins; dilute in 50mL of NS or D5W ordered. pc 18:33 Urine Culture Ordered. EDMS 18:36 BED REQUEST+ADM ordered. EDMS 18:39 Data reviewed: old medical records, vital signs, nurses notes, EKG(s), lab test pc results, all radiology studies and available results. Test interpretation: Arterial blood gas is normal except. pH: 7.5 pO2: 68 pCO2: 29. The patient has been re-examined and re-evaluated. The patient's symptoms have mildly improved after treatment, with his fever resolved but he is unsteady while ambulating and is unsafe for discharge. Physician consultation: Dr. Valentin Winston regarding admission. Disposition: The historical points, examination findings, and any diagnostic results supporting the provided diagnosis, were discussed with the patient or legal guardian. The need for further work-up and/or treatment in the hospital was explained. 19:12 Admission / Observation Status ordered. EDMS 19:13 CONSISTENT CARBOHYDRATES ordered. EDMS 19:13 URINALYSIS Ordered. EDMS 19:14 PHYSICAL THERAPY EVAL & TREAT ordered. EDMS 19:29 SPUTUM CULTURE AND GRAM STAIN Ordered. EDMS 19:32 BASIC METABOLIC PROFILE Ordered. EDMS 19:32 COMPLETE BLOOD COUNT Ordered. EDMS 04/28 11:35 ECG/EKG was scanned into [employer] and attached to record. EC/30 16:42 Rate is 77 beats/min. Rhythm is irregularly irregular, A fib. QRS [place] is Normal. QRS pc interval is prolonged at 139 msec. QT interval is normal. No Q waves. T waves are Normal. No ST changes noted. Clinical impression: Atrial Fibrillation w/o RVR, RBBB, and Anterior [place] - age indeterminate. No change from previous ECG in October,. Administered Medications: 16:49 Drug: Acetaminophen 650 mg [acetaminophen 325 mg tablet (2 tabs)] Route: PO; ml6 18:33 Drug: NS 0.9% 1000 ml [sodium chloride 0.9 % intravenous solution] Route: IV; Rate: 100 ml6 mL/hr; Site: left antecubital; 20:10 Drug: cefTRIAXone 1 grams [ceftriaxone 250 mg solution for injection] Route: IVPB; nn1 Infused Over: 30 mins; Site: right antecubital; 21:05 Follow up: IV Status: Completed infusion nn1 Signatures: Dispatcher [employer] EDMS Terry Tamayo MD MD pc Daly, Linda, [employer] Assistant Unit lbd Christelle Manzano, Maximilian Flores RN RN ml6 Mana Kaiser, FEDERAL APPELLATE LAW CLERK FEDERAL APPELLATE LAW CLERK [id number] Joe Jaime RN RN nn1 Rosa Whitt The chart was reviewed and I authenticate all verbal orders and agree with the evaluation and treatment provided.Corrections: (The following items were deleted from the chart) 16:38 16:31 He was well 2 days ago and was seen at his PCP for follow up. He was well pc yesterday but awoke this morning and was found to be drenched in sweat and confused. He felt very warm but did not have a temp recorded. He has had a slight cough. He has not had any nausea or vomiting. 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 He was seen at his PCP this afternoon and found to be febrile and have a PO of only 84% on room. EMS was called and he was transported here. pc 16:42 16:39 CVS: regular pulse rate, regular rhythm, normal S1 and S2, no murmurs, strong pc peripheral pulses, normal capillary refill, pc Attachments: 17:14 [facility] Payment Agreement gjb 04/28 11:35 ECG/EKG Chart Complete MTDD
--- NOTE | 2016-04-29 22:09 | EDDOCDS ---
Physician Documentation [facility] Name: Oswaldo Bearden Age: 81 yrs Sex: Male : 1935 Arrival Date: 04/27/2016 Time: 16:09 Bed 9 Private MD: Jordan Disposition: 04/27 18:39 Critical Care: Critical care not applicable. pc Disposition: 04/27/16 18:42 Hospitalization ordered by Valentin Winston for Inpatient Admission. Preliminary diagnosis are Fever of other and unknown origin, Acute upper respiratory infection, unspecified, Decreased white blood cell count, Thrombocytopenia, unspecified. - Bed requested for PCU. - Status is Inpatient Admission. nn1 - Condition is Stable. - Problem is new. - Symptoms have improved. HPI: 16:31 This 81 yrs old Male presents to ER with complaints of Breathing Difficulty. pc 16:31 The history is obtained from the patient, the patient's family/friend. He was well 2 pc days ago and was seen at his PCP for follow up. He was well yesterday but awoke this morning and was found to be drenched in sweat and confused. He felt very warm but did not have a temp recorded. He has had a slight cough. He has not had any nausea or vomiting. 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 He was seen at his PCP this afternoon and found to be febrile and have a PO of only 84% on room. EMS was called and he was transported here. He arrives BLS, with a PO of 93% on room air. He denies any chest pain, headache, SOB, sore throat, abdominal pain, n/v/d, swollen joints or reddened areas. 16:36 At their worst, the symptoms were moderate. In the emergency department, the symptoms pc are mild. The patient has experienced similar episodes in the past, several times. 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 Historical: - Allergies: Lipitor; - Home Meds: 1. aspirin 81 mg Oral chew 1 tab once daily (Last dose: 04/26/2016 08:00) 2. bisoprolol fumarate 5 mg oral tab 1 tab once daily (Last dose: 04/27/2016 08:00) 3. Carafate 1 gram Oral tab 1 tab 4 times per day (Last dose: 04/27/2016 08:00) 4. CoQ-10 30 mg oral cap daily (Last dose: 04/27/2016 08:00) 5. cyanocobalamin (vitamin B-12) 100 mcg oral tab daily (Last dose: 04/27/2016 08:00) 6. cyclosporine 25 mg Oral cap once daily (Last dose: 04/27/2016 08:00) 7. ferrous gluconate 324 mg (37.5 mg iron) Oral tab daily (Last dose: 04/27/2016 08:00) 8. Fish Oil 300-1,000 mg Oral cap daily (Last dose: 04/27/2016 08:00) 9. furosemide 20 mg Oral tab 3 tabs once daily until fluids are reduced (Last dose: 04/27/2016 08:00) 10. gabapentin 800 mg Oral tab twice a day (Last dose: 04/27/2016 08:00) 11. Humalog 8 Units before each meal 3 times daily Sub-Q three times a day (Last dose: 04/27/2016 12:00) 12. metformin 1,000 mg Oral tab 2 times per day (Last dose: 04/27/2016 08:00) 13. multivitamin Oral cap 1 tab daily (Last dose: 04/27/2016 08:00) 14. Prilosec 40 mg Oral cpDR 1 cap once daily (Last dose: 04/27/2016 08:00) 15. Restasis 0.05 % ophthalmic dpet 2 times per day (Last dose: 04/27/2016 08:00) 16. senna 8.6 mg oral cap 2 caps once daily (Last dose: 04/27/2016 08:00) 17. simvastatin 40 mg Oral tab 1 tab once daily (Last dose: 04/27/2016 08:00) 18. spironolactone 25 mg Oral tab 0.5 tab once daily (Last dose: 04/27/2016 08:00) 19. toujeo 48 Units titrate to maximum of 60 Units daily (Last dose: 04/27/2016 08:00) 20. Vit D 3 5000 unit daily (Last dose: 04/27/2016 08:00) - PMHx: CAD; Diabetes - NIDDM: controlled; Hypercholesterolemia; peripheral vascular disease; Sleep Apnea w/ CPAP; BBB; Atrial Fib; CKD 3; CHF; - PSHx: CABAG; Appendectomy; diviated septal repair; - The history from nurses notes was reviewed: but there are no nursing notes, or only partial notes available at the time of my charting. - Social history: Smoking status: Patient states was never smoker of tobacco. No barriers to communication noted, Speaks appropriately for age. - Hospitalizations: : The patient was recently seen at [facility], and discharged 4 month(s) ago, for unrelated complaints. - : The pt / caregiver states he / she is not on anticoagulants. Home medication list is obtained from family members, Unable to Verify Home Med List with the patient / caregiver. - Immunization history:: All immunizations up-to-date. - Exposure Risk Screening:: None identified. - Family history: Not pertinent. - Social history:: the patient is a former smoker, the patient drinks alcohol, socially. ROS: 16:36 All systems are negative except as listed. pc Exam: 16:39 General Appearance: no acute distress, alert. pc 16:39 EENT: ears, nose and throat normal, pale conjunctiva, mucous membranes dry. 16:39 Neck: The exam reveals no acute abnormalities. ROM is normal and painless. No nuchal rigidity is noted.. 16:39 Respiratory: no respiratory distress, normal breath sounds, PO 93% on RA. 16:39 CVS: regular pulse rate, normal S1 and S2, no murmurs, strong peripheral pulses, normal capillary refill, irregularly irregular 16:39 Abdomen: soft, non-tender, no organomegaly, normal bowel sounds. 16:39 Back: normal inspection. 16:39 : bladder is non-distended, non-tender. 16:39 Skin: skin color is normal, warm, dry. 16:39 Extremities: with pedal edema Other trace bilaterally 16:39 Neuro: oriented x 3, cranial nerves normal as tested, no motor deficits, no sensory deficits. 16:39 Psych: normal mood. Vital Signs: 16:22 BP 125 / 62; Pulse 85; Resp 20; Temp 100.9(O); Pulse Ox 93% ; Weight 100.7 kg / 222.01 jlf lbs; Height 5 ft. 8 in. (172.72 cm); Pain 0/10; 18:00 BP 122 / 68; Pulse 87; Resp 14; Pulse Ox 97% on R/A; Pain 0/10; ml6 18:32 Temp 99.4(O); jlf 16:22 Body Mass Index 33.75 (100.70 kg, 172.72 cm) [facility] MDM: 16:28 -Blood Culture (Adults Only), peripheral from different site, or from device/port/PICC pc etc. if present ordered. 16:28 Physics Faculty Member/Pulse Ox/q 15 min VS ordered. pc 16:28 IV Saline Lock ordered. pc 16:28 Rhythm Strip to chart ordered. pc 16:28 Obtain sample by nasopharyngeal swab ordered. pc 16:29 -Arterial Blood Gas Ordered. EDMS 16:29 -Blood Culture Ordered. EDMS 16:29 B-Type Natiuretic Peptide Ordered. EDMS 16:29 Basic Metabolic Profile Ordered. EDMS 16:29 CBC with Diff Ordered. EDMS 16:29 Cardiac Injury Profile Ordered. EDMS 16:29 Troponin Ordered. EDMS 16:29 -Influenza A&B Rapid Antigen - Nose Ordered. EDMS 16:29 Chest, 1 View Ordered. EDMS 16:30 ECG WITH READING ER PHYS+CARDIAG ordered. EDMS 16:30 -Blood Culture (Adults Only), peripheral from different site, or from device/port/PICC lbd etc. if present complete. 16:33 BLOOD CULTURES Ordered. EDMS 16:42 Differential Diagnosis: febrile illness with cough r/o pneumonia, influenza; AFib no pc longer on anticoagulants due to UGI bleeding history. Plan: labs, EKG, CXR. Test interpretation: EKG. 16:45 Acetaminophen Tablet 650 mg PO once ordered. pc 17:03 Test interpretation: LAB - all labs as ordered have been reviewed, interpreted and pc considered in the overall management of the clinical presentation; X-RAY - interpreted by Radiologist and personally reviewed, 1 view chest ?bibasilar atelectasis, else nad. 17:04 -Arterial Blood Gas Reviewed. pc 17:04 -Influenza A&B Rapid Antigen - Nose Reviewed. pc 17:04 Chest, 1 View Reviewed. pc 17:10 Financial registration complete. gjb 17:14 [facility] Payment Agreement was scanned into [employer] and attached to record. gjb 17:21 DIFFERENTIAL NO CHARGE Ordered. EDMS 17:21 PLATELET ESTIMATE Ordered. EDMS 17:42 B-Type Natiuretic Peptide Reviewed. pc 17:42 Basic Metabolic Profile Reviewed. pc 17:42 CBC with Diff Reviewed. pc 17:42 Cardiac Injury Profile Reviewed. pc 17:42 Troponin Reviewed. pc 17:43 PLATELET ESTIMATE Reviewed. pc 17:46 Ambulate Patient wt Pulse Oximetry ordered. pc 17:46 Repeat Temperature - Oral: Inform provider of result ordered. pc 18:10 CBC with Diff Reviewed. pc 18:10 PLATELET ESTIMATE Reviewed. pc 18:33 NS 0.9% 1000 ml IV at 100 mL/hr continuous ordered. pc 18:33 cefTRIAXone 1 grams IVPB once over 30 mins; dilute in 50mL of NS or D5W ordered. pc 18:33 Urine Culture Ordered. EDMS 18:36 BED REQUEST+ADM ordered. EDMS 18:39 Data reviewed: old medical records, vital signs, nurses notes, EKG(s), lab test pc results, all radiology studies and available results. Test interpretation: Arterial blood gas is normal except. pH: 7.5 pO2: 68 pCO2: 29. The patient has been re-examined and re-evaluated. The patient's symptoms have mildly improved after treatment, with his fever resolved but he is unsteady while ambulating and is unsafe for discharge. Physician consultation: Dr. Valentin Winston regarding admission. Disposition: The historical points, examination findings, and any diagnostic results supporting the provided diagnosis, were discussed with the patient or legal guardian. The need for further work-up and/or treatment in the hospital was explained. 19:12 Admission / Observation Status ordered. EDMS 19:13 CONSISTENT CARBOHYDRATES ordered. EDMS 19:13 URINALYSIS Ordered. EDMS 19:14 PHYSICAL THERAPY EVAL & TREAT ordered. EDMS 19:29 SPUTUM CULTURE AND GRAM STAIN Ordered. EDMS 19:32 BASIC METABOLIC PROFILE Ordered. EDMS 19:32 COMPLETE BLOOD COUNT Ordered. EDMS 04/28 11:35 ECG/EKG was scanned into [employer] and attached to record. EC/30 16:42 Rate is 77 beats/min. Rhythm is irregularly irregular, A fib. QRS [place] is Normal. QRS pc interval is prolonged at 139 msec. QT interval is normal. No Q waves. T waves are Normal. No ST changes noted. Clinical impression: Atrial Fibrillation w/o RVR, RBBB, and Anterior [place] - age indeterminate. No change from previous ECG in October,. Administered Medications: 16:49 Drug: Acetaminophen 650 mg [acetaminophen 325 mg tablet (2 tabs)] Route: PO; ml6 18:33 Drug: NS 0.9% 1000 ml [sodium chloride 0.9 % intravenous solution] Route: IV; Rate: 100 ml6 mL/hr; Site: left antecubital; 20:10 Drug: cefTRIAXone 1 grams [ceftriaxone 250 mg solution for injection] Route: IVPB; nn1 Infused Over: 30 mins; Site: right antecubital; 21:05 Follow up: IV Status: Completed infusion nn1 Signatures: Dispatcher [employer] EDMS Terry Tamayo MD MD pc Daly, Linda, Pack Mule Worker Unit lbd Christelle Manzano, Maximilian Flores RN RN ml6 Mana Kaiser, CONTINUOUS IMPROVEMENT MANAGER CONTINUOUS IMPROVEMENT MANAGER [id number] Joe Jaime RN RN nn1 Rosa Whitt The chart was reviewed and I authenticate all verbal orders and agree with the evaluation and treatment provided.Corrections: (The following items were deleted from the chart) 16:38 16:31 He was well 2 days ago and was seen at his PCP for follow up. He was well pc yesterday but awoke this morning and was found to be drenched in sweat and confused. He felt very warm but did not have a temp recorded. He has had a slight cough. He has not had any nausea or vomiting. 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 He was seen at his PCP this afternoon and found to be febrile and have a PO of only 84% on room. EMS was called and he was transported here. pc 16:42 16:39 CVS: regular pulse rate, regular rhythm, normal S1 and S2, no murmurs, strong pc peripheral pulses, normal capillary refill, pc Attachments: 17:14 [facility] [place] Payment Agreement gjb 04/28 11:35 ECG/EKG Chart Complete MTDD
[2016-04-30] MEDS: IPRATROPIUM 0.5MG/ALBUTEROL 2.5MG INH SOL UD 3ML (DUONEB)(J7620) NEB SCH ×2 (02:00→07:13)
[2016-04-30 05:23] LABS: MEAN CORPUSCULAR HEMOGLOBIN 29.7 pg (27.0-33.0); MEAN CORPUSCULAR HGB CONC 33.7 g/dl (32.0-36.5); MEAN CORPUSCULAR VOLUME 88.2 fl (80.0-96.0); RED CELL DISTRIBUTION WIDTH 17.5 % (11.5-14.5); WHITE BLOOD COUNT 2.8 K/mm3 (4.0-10.0)
[2016-04-30] MEDS: cefTRIAXone SOD 1 GM in D5W MINI-BAG PLUS 50 ML IV SCH (05:36)
[2016-04-30 05:37] LABS: ANION GAP 12 MEQ/L (8-16); BLOOD UREA NITROGEN 20 MG/DL (7-18); CALCIUM LEVEL 8.3 MG/DL (8.8-10.2); CARBON DIOXIDE LEVEL 26 MEQ/L (21-32); CHLORIDE LEVEL 96 MEQ/L (98-107); GLOMERULAR FILTRATION RATE > 60.0 (>35); GLUCOSE, FASTING 219 MG/DL (83-110); POTASSIUM SERUM 3.6 MEQ/L (3.5-5.1); SODIUM LEVEL 134 MEQ/L (136-145)
[2016-04-30 05:52] VITALS: BP 126/81
[2016-04-30 07:53] VITALS: BP 152/83
[2016-04-30] MEDS: HumaLOG INSULIN (NovoLOG) PER UNIT SC SCH (08:51)
[2016-04-30] MEDS: FUROSEMIDE 100 MG/10 ML VIAL (J1940) IV SCH (08:51)
[2016-04-30] MEDS: OMEPRAZOLE 20 MG CAP PO SCH (08:53)
[2016-04-30] MEDS ORDERED: LEVO500T32 PO (08:53)
[2016-04-30] MEDS: ALLOPURINOL 100 MG TAB PO SCH (08:54)
[2016-04-30] MEDS: AZITHROMYCIN 250 MG TAB PO SCH (08:54)
[2016-04-30] MEDS: ASPIRIN 81 MG ENTERIC TAB PO SCH (08:55)
[2016-04-30] MEDS: GABAPENTIN 400 MG CAP PO SCH (08:55)
[2016-04-30 08:56] VITALS: BP 152/83
[2016-04-30] MEDS: BISOPROLOL FUMARATE 5 MG TAB PO SCH (08:56)
[2016-04-30] MEDS: OMEGA-3 1050MG CAPSULE PO SCH (08:57)
[2016-04-30] MEDS: FERROUS GLUCONATE 324 MG TAB PO SCH (08:57)
[2016-04-30] MEDS: MULTIVITAMINS/MINERALS THERAP 1 TAB PO SCH (08:57)
[2016-04-30] MEDS: COLCHICINE 0.6 MG TAB PO SCH (08:58)
[2016-04-30] MEDS: DIGOXIN 0.125 MG TAB PO SCH (08:59)
[2016-04-30] MEDS: SENNA 8.6 MG TAB (SENOKOT) PO SCH (08:59)
[2016-04-30] MEDS: MIRALAX *UNIT DOSE* 17GM PACKET PO SCH (09:00)
--- NOTE | 2016-05-01 09:33 | DSES ---
DATE OF ADMISSION: 04/27/2016 DATE OF DISCHARGE: 04/30/2016 DISCHARGE DIAGNOSIS: Decompensated diastolic heart failure. SECONDARY DIAGNOSES: Community acquired pneumonia. Pancytopenia. Type 2 diabetes. Atrial fibrillation. Gout. Gastroesophageal reflux disease. Coronary artery disease. HOSPITAL COURSE: The patient is an 81-year-old man who presented with dyspnea and progressively worsening shortness of breath. As per the patient's son, he had been progressively putting on weight and had been nonadherent with the fluid restricted diet. The patient himself has episodes where he becomes confused and he lives with his and has a caregiver for his who has advanced dementia. Their son lives next door and grandson is able to provide almost 24 hour a day, 7 day a week care, however, they are alone at night. They also have 6 hours a day of nursing help. Patient was admitted to the progressive care unit with dyspnea. He was started on empiric antibiotics for community acquired pneumonia. His cultures all remained negative. He was diuresed with IV Lasix as well and had good improvement in his symptoms. He briefly had an oxygen requirement at the time of admission but this did resolve. He did lose a significant amount of weight. SUBJECTIVE: The patient reports he is feeling well. He feels back to normal and wants to go home. He denies any chest pain, shortness of breath, lightheadedness, dizziness, fevers, chills or cough. OBJECTIVE: Vital signs: Temperature 97.1, pulse 99, respiratory rate 20, blood pressure 126/81, oxygen saturation 95% on 2 liters nasal cannula. General: He is a very pleasant elderly man sitting in a recliner. He is accompanied by his son. Patient does not appear to be in any acute distress. HEENT: Cranial nerves II through XII are grossly intact. He has moist mucous membranes and elevation of his central venous pressure. Cardiovascular exam: S1, S2, irregularly irregular but he is not tachycardic at the time of my exam. Respiratory exam: He is actually fairly clear today. Abdominal exam: Obese. Extremities: No clubbing, cyanosis. He has 1+ edema bilaterally. LABORATORY STUDIES TODAY: WBC 2.8, hemoglobin 10.7, hematocrit 31.8, platelet count 68, stable. Chemistry panel: Sodium 134, potassium 3.6, chloride 96, bicarbonate 26, BUN 20, creatinine 1.1. Microbiology: The flu swab was negative. Two sets of blood cultures were negative and urine culture was negative. Imaging: The patient had chest x-ray here which revealed some pulmonary edema. ASSESSMENT AND PLAN: This is an 81-year-old man with dyspnea secondary to decompensated diastolic heart failure and possibly some community acquired pneumonia. PROBLEMS: 1. Dyspnea likely secondary to decompensated diastolic heart failure. He did improve after IV Lasix. He does appear to be mildly fluid overloaded at the present time. I suspect he could continue with diuresis at home. I have spoke with the son and the patient at length about monitoring daily weights, fluid restriction and salt restriction. He does admit that he was not necessarily adherent with it over the holidays, however, he will be more particular with it in the coming days. He has been advised that should be have a greater weight increase than 2 pounds in 48 hours, he should contact his primary care provider and take additional diuretic. Patient will also be switched to oral levofloxacin to finish a 7 day course of antibiotics for possible community acquired pneumonia. 2. Pancytopenia, appears to be relatively chronic over the past 1 year, however, at the present time, he has not undergone a hematology evaluation and I would recommend he undergo this sooner rather than later. Iron studies and peripheral smear have not revealed an etiology as of yet. There could possibly be some iron deficiency anemia in regards to his red blood cells, however, I do have concern for underlying myeloproliferative disorder. Recommend outpatient hematology referral. 3. Type 2 diabetes with neuropathy. He was continued on insulin while in the hospital and Neurontin. 4. Atrial fibrillation. He is not on any anticoagulation secondary to gastrointestinal (GI) bleed. He is on bisoprolol and digoxin. It was well controlled during his stay. 5. Gout. The patient is on colchicine and allopurinol. 6. Gastroesophageal reflux disease. Patient is on omeprazole and Carafate. 7. Coronary artery disease. Patient is in aspirin, beta nya and a statin. DISPOSITION: The patient is being discharged home to the care of his son and grandson. His clinical status is back to his baseline. Activity is as prior to admission. Diet is 1500 mL fluid restricted 2 gram sodium with consistent carbohydrate. He is to followup with Dr. Dean within 2 weeks and followup with his primary care provider within 1 week. He is advised to return to the hospital should his symptoms worsen. Check daily weights. MEDICATIONS AT THE TIME OF DISCHARGE: - levofloxacin 500 mg daily for 4 days - allopurinol 200 mg daily - aspirin 81 mg daily - vitamin B complex one tablet daily - bisoprolol 5 mg every evening - bisoprolol 2.5 mg daily - vitamin D 5000 units daily - Coenzyme Q 400 mg daily - colchicine 0.6 mg daily - digoxin 0.0625 mg daily - ferrous sulfate 325 mg daily - fish oil 1 gram daily - gabapentin 800 mg twice a day - garlic oil 1 gram daily - Lispro 26 units before meals - metformin 1 gram twice a day - multivitamin one tablet daily - omeprazole 40 mg twice a day - MiraLax 17 grams daily - Restasis 0.05% two drops each eye twice daily as needed for dry eyes - Senna laxative one tablet daily - simvastatin 40 mg every evening - aldactone 12.5 mg twice a day - Carafate 1 gram every evening - torsemide 40 mg in the morning, 60 mg in the evening - 80 units subcutaneously daily - vision plus one capsule daily Greater than 45 minutes spent organizing safe disposition.
== END 2016-04-30 10:19 | disposition home health service (06) | DRG 291 ==
LOC: M ED 16:09 → M ED INP 18:40 → M PCU 21:11
PROVIDERS: ADMIT Internal Medicine; ATTEND Internal Medicine
DX: I50.33 Acute on chronic diastolic (congestive) heart failure (principal); J18.9 Pneumonia, unspecified organism; D61.818 Other pancytopenia; E87.3 Alkalosis; E11.40 Type 2 diabetes mellitus with diabetic neuropathy, unspecified; I48.91 Unspecified atrial fibrillation; K21.9 Gastro-esophageal reflux disease without esophagitis; M10.9 Gout, unspecified; Z79.899 Other long term (current) drug therapy; Z79.82 Long term (current) use of aspirin; I25.10 Atherosclerotic heart disease of native coronary artery without angina pectoris; E78.5 Hyperlipidemia, unspecified; G47.33 Obstructive sleep apnea (adult) (pediatric); I73.9 Peripheral vascular disease, unspecified

== ENCOUNTER → 2016-07-17 | Outpatient (REF) | payer MEDICARE, OTHER ==
[~2016-07-17] MED LIST changes: +ALLO10TA PO; +COLC1TAB13 PO; +D 501TAB PO; +LEVO500T32 PO; +OMEP40CA2 PO; +TORS20TA2 PO; +VISICAP PO; +VITATAB11 PO
[2016-07-17 18:14] LABS: FOLATE > 24.0 NG/ML; VITAMIN B12 LEVEL 678 PG/ML
[2016-07-17 18:32] LABS: PERCENT SATURATION 22.4 % (19.7-37.4); TOTAL IRON BINDING CAPACITY 522 UG/DL (250-450)
== END ==
LOC: M LAB REF 16:26
PROVIDERS: ATTEND Internal Medicine
DX: N18.9 Chronic kidney disease, unspecified (principal); D63.1 Anemia in chronic kidney disease

== ENCOUNTER 2016-10-08 18:44 | Emergency (ER) | payer MEDICARE, OTHER ==
[~2016-10-08] VITALS: Ht 172.7 cm; Wt 102.3 kg
[2016-10-08 20:00] LABS: BASO % 0.4 % (0.0-1.0); EOS % 0.3 % (0.0-3.0); LARGE UNSTAINED CELL # 0.5 K/mm3 (0.0-0.4); LARGE UNSTAINED CELL % 5.1 % (0.0-4.0); LYMPH # 1.6 K/mm3 (1.5-4.5); LYMPH % 10.3 % (24.0-44.0); MEAN CORPUSCULAR HEMOGLOBIN 29.8 pg (27.0-33.0); MEAN CORPUSCULAR HGB CONC 33.2 g/dl (32.0-36.5); MEAN CORPUSCULAR VOLUME 89.9 fl (80.0-96.0); MONO # 2.1 K/mm3 (0.0-0.8); MONO % 19.7 % (0.0-5.0); NEUTROPHILS # 6.8 K/mm3 (1.8-7.7); NEUTROPHILS % 64.2 % (36.0-66.0); PLATELET COUNT, AUTOMATED 108 k/mm3 (150-450); RED CELL DISTRIBUTION WIDTH 16.2 % (11.5-14.5); WHITE BLOOD COUNT 10.6 K/mm3 (4.0-10.0)
[2016-10-08 20:27] LABS: ALBUMIN 3.9 GM/DL (3.2-5.2); ALBUMIN/GLOBULIN RATIO 1.18 (1.00-1.93); ALKALINE PHOSPHATASE 148 U/L (45-117); ALT/SGPT 31 U/L (12-78); ANION GAP 9 MEQ/L (8-16); AST/SGOT 26 U/L (15-37); BILIRUBIN,DIRECT 0.2 MG/DL (0.0-0.2); BILIRUBIN,TOTAL 0.6 MG/DL (0.2-1.0); BLOOD UREA NITROGEN 22 MG/DL (7-18); CALCIUM LEVEL 9.2 MG/DL (8.8-10.2); CARBON DIOXIDE LEVEL 32 MEQ/L (21-32); CHLORIDE LEVEL 93 MEQ/L (98-107); CREATININE FOR GFR 1.21 MG/DL (0.70-1.30); GLOMERULAR FILTRATION RATE > 60.0 (>35); GLUCOSE, FASTING 102 MG/DL (83-110); POTASSIUM SERUM 3.7 MEQ/L (3.5-5.1); SODIUM LEVEL 134 MEQ/L (136-145); TOTAL PROTEIN 7.2 GM/DL (6.4-8.2)
[2016-10-08] MEDS ORDERED: ACETAMINOPHEN TAB 650MG DOSE (2X325MG) PO ONE (21:00)
--- NOTE | 2016-10-08 21:00 | REPUSA ---
Clinical history: Cough. Comparison: None. Findings: Frontal and lateral views of the chest were obtained. The mediastinum is within normal limi ts. The heart is enlarged. The lungs are clear. No pleural effusion or pneumothorax is seen. The osse ous structures and soft tissues are unremarkable. Impression: No acute disease.
--- NOTE | 2016-10-08 22:40 | REPUSA ---
CT of the head Clinical history: confusion. Protocol: Multiple axial CT images obtained with 5 mm slice thickness were obtained through the head without administration of contrast. Comparison: 08/31/2015. Findings: The ventricles and sulci are symmetric but prominent in size bilaterally. There are periven tricular areas of low attenuation throughout the deep white matter. There is no evidence of acute hem orrhage or infarct. There is no midline shift, mass effect, or extra-axial fluid collection. The osse ous structures are unremarkable. The visualized paranasal sinuses and mastoid air cells are clear. Impression: No acute hemorrhage or infarct. Findings are consistent with age-related atrophy and printing specialist alesia small vessel ischemic disease.
[2016-10-08 23:40] VITALS: O2SAT 91
[2016-10-09 00:03] VITALS: BP 140/60
--- NOTE | 2016-10-09 05:56 | ECGEPIP ---
Stationary ECG Study [facility] - ED Test Date: 2016-10-08 Pat Name: CHELI FLEMING Department: Room: - Gender: M Community Director: patricia : 1935 Requested By: NAM Dooley Order Number: [id number] Reading MD: Terry Tamayo Measurements Intervals [place] Rate: 87 P: [place]: 0 QRS: 17 QRSD: 159 T: 19 QT: 412 QTc: 497 Interpretive Statements ATRIAL FIBRILLATION INDETERMINATE AXIS RIGHT BUNDLE BRANCH BLOCK POSSIBLE ANTERIOR MYOCARDIAL INFARCTION, OF INDETERMINATE AGE SIMILAR TO 04/27/16 Electronically Signed On 10-09-2016 5:56:52 EDT by Terry Tamayo
== END 2016-10-09 00:05 | disposition home or self-care (01) ==
LOC: M ED 21:27
DX: J06.9 Acute upper respiratory infection, unspecified (principal); I48.91 Unspecified atrial fibrillation; I25.10 Atherosclerotic heart disease of native coronary artery without angina pectoris; E11.9 Type 2 diabetes mellitus without complications; K21.9 Gastro-esophageal reflux disease without esophagitis; M10.9 Gout, unspecified; N18.9 Chronic kidney disease, unspecified; Z88.8 Allergy status to other drugs, medicaments and biological substances; Z79.899 Other long term (current) drug therapy; Z79.82 Long term (current) use of aspirin; Z79.84 Long term (current) use of oral hypoglycemic drugs

== ENCOUNTER → 2016-11-13 | Outpatient (REF) ==
[~2016-11-13] MED LIST changes: +ACET1TAB17 PO; +AMIL5TA PO; +ASPI81TA24 PO; -AUGM875T27 PO; +AUGM875T28 PO; +BIOTLIQ9 SSP; +BISA10SU4 PR; -CARA1TAB2 PO; +CARA1TAB6 PO; +CARV6.25 PO; +ENEMENE16 PR; +FISH5CAP PO; +GABA800T PO; +LACT10SO3 PO; +LEVO500T3 PO; -LEVO500T32 PO; +LISI2.5T3 PO; +METF-415 PO; -METF1000 PO; +METF10004 PO; +MILKSUS PO; +POTA10CA PO; +SENN1TAB10 PO; -SENN8.6T10 PO; +SENN8.6T7 PO; +SLOWTAB2 PO; -SMZ-800T PO; +SUCR1TAB56 PO; +SULF1TAB23 PO
[2016-11-13 09:59] LABS: VITAMIN B12 LEVEL 594 PG/ML (247-911)
[2016-11-13 10:06] LABS: ANION GAP 11 MEQ/L (8-16); BLOOD UREA NITROGEN 22 MG/DL (7-18); CALCIUM LEVEL 9.2 MG/DL (8.8-10.2); CARBON DIOXIDE LEVEL 29 MEQ/L (21-32); CHLORIDE LEVEL 92 MEQ/L (98-107); CREATININE FOR GFR 1.17 MG/DL (0.70-1.30); DIGOXIN LEVEL 0.4 NG/ML (0.5-2.0); GLOMERULAR FILTRATION RATE > 60.0 (>35); GLUCOSE, FASTING 199 MG/DL (83-110); POTASSIUM SERUM 4.2 MEQ/L (3.5-5.1); SODIUM LEVEL 132 MEQ/L (136-145)
[2016-11-13 10:15] LABS: MEAN CORPUSCULAR HEMOGLOBIN 28.1 pg (27.0-33.0); MEAN CORPUSCULAR HGB CONC 32.8 g/dl (32.0-36.5); MEAN CORPUSCULAR VOLUME 85.6 fl (80.0-96.0); RED CELL DISTRIBUTION WIDTH 15.7 % (11.5-14.5); WHITE BLOOD COUNT 4.9 K/mm3 (4.0-10.0)
== END ==
PROVIDERS: ATTEND Internal Medicine
DX: I50.9 Heart failure, unspecified (principal); E11.9 Type 2 diabetes mellitus without complications

== ENCOUNTER → 2016-12-03 | Outpatient (REF) | payer MEDICARE, OTHER ==
[2016-12-03 12:35] LABS: ANION GAP 14 MEQ/L (8-16); BLOOD UREA NITROGEN 24 MG/DL (7-18); CALCIUM LEVEL 8.4 MG/DL (8.8-10.2); CARBON DIOXIDE LEVEL 27 MEQ/L (21-32); CHLORIDE LEVEL 94 MEQ/L (98-107); CREATININE FOR GFR 1.17 MG/DL (0.70-1.30); GLOMERULAR FILTRATION RATE > 60.0 (>35); GLUCOSE, FASTING 201 MG/DL (83-110); POTASSIUM SERUM 3.5 MEQ/L (3.5-5.1); SODIUM LEVEL 135 MEQ/L (136-145)
== END ==
PROVIDERS: ATTEND Internal Medicine
DX: I50.9 Heart failure, unspecified (principal)

== ENCOUNTER → 2016-12-06 | Outpatient (REF) | payer MEDICARE, OTHER ==
[2016-12-06 12:48] LABS: ANION GAP 13 MEQ/L (8-16); BLOOD UREA NITROGEN 28 MG/DL (7-18); CALCIUM LEVEL 8.8 MG/DL (8.8-10.2); CARBON DIOXIDE LEVEL 30 MEQ/L (21-32); CHLORIDE LEVEL 99 MEQ/L (98-107); CREATININE FOR GFR 1.12 MG/DL (0.70-1.30); GLOMERULAR FILTRATION RATE > 60.0 (>35); GLUCOSE, FASTING 183 MG/DL (83-110); POTASSIUM SERUM 3.6 MEQ/L (3.5-5.1); SODIUM LEVEL 142 MEQ/L (136-145)
== END ==
PROVIDERS: ATTEND Internal Medicine
DX: I50.9 Heart failure, unspecified (principal)

== ENCOUNTER → 2016-12-19 | Outpatient (REF) | payer MEDICARE, OTHER ==
[2016-12-19 10:43] LABS: ANION GAP 13 MEQ/L (8-16); BLOOD UREA NITROGEN 22 MG/DL (7-18); CARBON DIOXIDE LEVEL 28 MEQ/L (21-32); CHLORIDE LEVEL 97 MEQ/L (98-107); CREATININE FOR GFR 1.17 MG/DL (0.70-1.30); GLOMERULAR FILTRATION RATE > 60.0 (>35); GLUCOSE, FASTING 182 MG/DL (83-110); POTASSIUM SERUM 3.5 MEQ/L (3.5-5.1); SODIUM LEVEL 138 MEQ/L (136-145)
== END ==
PROVIDERS: ATTEND Internal Medicine
DX: I50.9 Heart failure, unspecified (principal)

== ENCOUNTER → 2016-12-25 | Outpatient (REF) | payer MEDICARE, OTHER ==
--- NOTE | 2016-12-25 16:31 | REP ---
CHEST: Single AP view of the chest is performed and compared to prior study of 10/08/2016. There is chronic interstitial prominence which is stable. No new infiltrates are seen. The heart is mildly enlarged. There is calcification of the thoracic aorta. The mediastinal silhouette is unchanged. Multiple sternal wires and mediastinal clips are present. IMPRESSION: Mild cardiomegaly. No acute infiltrate. Signed by Matt Vera MD 12/25/2016 04:50 P
[2016-12-25 17:25] LABS: MEAN CORPUSCULAR HEMOGLOBIN 27.2 pg (27.0-33.0); MEAN CORPUSCULAR HGB CONC 31.6 g/dl (32.0-36.5); MEAN CORPUSCULAR VOLUME 86.1 fl (80.0-96.0); WHITE BLOOD COUNT 5.5 K/mm3 (4.0-10.0)
[2016-12-25 18:52] LABS: CREATININE FOR GFR 1.26 MG/DL (0.70-1.30); GLOMERULAR FILTRATION RATE 58.2 (>35); POTASSIUM SERUM 3.2 MEQ/L (3.5-5.1)
[2016-12-25 23:11] LABS: PERCENT SATURATION 11.1 % (19.7-50.0)
== END ==
PROVIDERS: ATTEND Internal Medicine
DX: I50.9 Heart failure, unspecified (principal)

== ENCOUNTER → 2016-12-27 | Outpatient (REF) | payer MEDICARE, OTHER ==
[2016-12-27 10:19] LABS: CALCIUM LEVEL 8.8 MG/DL (8.8-10.2); CREATININE FOR GFR 1.39 MG/DL (0.70-1.30); POTASSIUM SERUM 3.7 MEQ/L (3.5-5.1)
== END ==
PROVIDERS: ATTEND Internal Medicine
DX: E87.6 Hypokalemia (principal)

== ENCOUNTER → 2016-12-28 | Outpatient (REF) | payer MEDICARE, OTHER | PROVIDERS: ATTEND Internal Medicine | DX: I50.9 Heart failure, unspecified (principal); D64.9 Anemia, unspecified ==

== ENCOUNTER → 2016-12-28 | Outpatient (REF) | payer MEDICARE, OTHER ==
[2016-12-28 10:02] LABS: MEAN CORPUSCULAR HEMOGLOBIN 26.9 pg (27.0-33.0); MEAN CORPUSCULAR HGB CONC 31.6 g/dl (32.0-36.5); MEAN CORPUSCULAR VOLUME 85.2 fl (80.0-96.0); RED CELL DISTRIBUTION WIDTH 17.9 % (11.5-14.5); WHITE BLOOD COUNT 3.5 K/mm3 (4.0-10.0)
== END ==
PROVIDERS: ATTEND Internal Medicine
DX: D64.9 Anemia, unspecified (principal); I50.9 Heart failure, unspecified

== ENCOUNTER → 2017-01-01 | Outpatient (REF) ==
[2017-01-02 12:11] LABS: MEAN CORPUSCULAR HEMOGLOBIN 27.4 pg (27.0-33.0); MEAN CORPUSCULAR HGB CONC 31.6 g/dl (32.0-36.5); MEAN CORPUSCULAR VOLUME 86.8 fl (80.0-96.0); RED CELL DISTRIBUTION WIDTH 18.9 % (11.5-14.5); WHITE BLOOD COUNT 4.4 K/mm3 (4.0-10.0)
[2017-01-02 12:41] LABS: ALBUMIN 3.7 GM/DL (3.2-5.2); ALBUMIN/GLOBULIN RATIO 1.28 (1.00-1.93); ALKALINE PHOSPHATASE 134 U/L (45-117); ALT/SGPT 33 U/L (12-78); ANION GAP 16 MEQ/L (8-16); AST/SGOT 37 U/L (15-37); BILIRUBIN,TOTAL 0.5 MG/DL (0.2-1.0); BLOOD UREA NITROGEN 17 MG/DL (7-18); CALCIUM LEVEL 8.7 MG/DL (8.8-10.2); CARBON DIOXIDE LEVEL 25 MEQ/L (21-32); CHLORIDE LEVEL 94 MEQ/L (98-107); CREATININE FOR GFR 1.19 MG/DL (0.70-1.30); GLOMERULAR FILTRATION RATE > 60.0 (>35); GLUCOSE, FASTING 198 MG/DL (83-110); POTASSIUM SERUM 3.5 MEQ/L (3.5-5.1); SODIUM LEVEL 135 MEQ/L (136-145); TOTAL PROTEIN 6.6 GM/DL (6.4-8.2)
[2017-01-02 14:04] LABS: VITAMIN B12 LEVEL 562 PG/ML (247-911)
== END ==
PROVIDERS: ATTEND Internal Medicine
DX: D64.9 Anemia, unspecified (principal); R41.0 Disorientation, unspecified

== ENCOUNTER 2017-01-21 11:39 | Inpatient (IN) | payer MEDICARE, OTHER, MEDICAID ==
[~2017-01-21] VITALS: Ht 170.2 cm; Wt 102.1 kg
[2017-01-21] MEDS: ENOXAPARIN 30 MG/0.3 ML SYR (J1650) SC SCH (09:00)
[~2017-01-21 11:39] MED LIST changes: -ACET1TAB17 PO; -AMIL5TA PO; -ASPI81TA24 PO; -BIOTLIQ9 SSP; -BISA10SU4 PR; -CARV6.25 PO; +DIGOXIN 0.0625MG PER 1/2TABLET PO SCH; -ENEMENE16 PR; -FISH5CAP PO; -GABA800T PO; -LACT10SO3 PO; -LISI2.5T3 PO; -METF-415 PO; -MILKSUS PO; -POTA10CA PO; -SENN8.6T7 PO; -SLOWTAB2 PO; -SUCR1TAB56 PO
[2017-01-21] MEDS ORDERED: FUROSEMIDE 40 MG/4 ML VIAL (J1940) IV ONE (12:15)
[2017-01-21] MEDS ORDERED: ASPIRIN 81 MG CHEW TABLET PO ONE (12:15)
[2017-01-21] MEDS ORDERED: GABA-283 PO (12:16)
[2017-01-21] MEDS ORDERED: FISH5CAP PO (12:16)
[2017-01-21] MEDS ORDERED: METF-415 PO (12:16)
[2017-01-21] MEDS ORDERED: ENEMENE16 PR (12:16)
[2017-01-21] MEDS ORDERED: SUCR1TAB56 PO (12:16)
[2017-01-21] MEDS ORDERED: ASPI81TA24 PO (12:16)
[2017-01-21] MEDS ORDERED: MILKSUS PO (12:16)
[2017-01-21] MEDS ORDERED: BIOTLIQ9 SSP (12:16)
[2017-01-21] MEDS ORDERED: SENN8.6T7 PO (12:16)
[2017-01-21] MEDS ORDERED: POTA10CA PO (12:16)
[2017-01-21] MEDS ORDERED: BISA10SU4 PR (12:16)
[2017-01-21] MEDS ORDERED: ACET1TAB17 PO (12:16)
[2017-01-21] MEDS ORDERED: GABA800T PO (12:16)
[2017-01-21 12:59] LABS: MEAN CORPUSCULAR HEMOGLOBIN 27.5 pg (27.0-33.0); MEAN CORPUSCULAR HGB CONC 30.5 g/dl (32.0-36.5); MEAN CORPUSCULAR VOLUME 90.2 fl (80.0-96.0); PLATELET COUNT, AUTOMATED 92 10^3/uL (150-450); WHITE BLOOD COUNT 6.9 10^3/uL (4.0-10.0)
[2017-01-21 13:02] LABS: ADD MANUAL DIFFER YES; ADD MORPHOLOGY? YES; DIFF SLIDE NUMBER 223; RED CELL DISTRIBUTION WIDTH 21.4 % (11.5-14.5)
[2017-01-21 13:03] LABS: INR 1.26
[2017-01-21 13:42] LABS: EOSINOPHILS 2 % (0-5)
[2017-01-21 13:43] LABS: ALBUMIN 3.2 GM/DL (3.2-5.2); ALBUMIN/GLOBULIN RATIO 1.1 (1.00-1.93); ANISOCYTOSIS 1+; BILIRUBIN,DIRECT 0.3 MG/DL (0.0-0.2); BILIRUBIN,TOTAL 0.6 MG/DL (0.2-1.0); CALCIUM LEVEL 8.8 MG/DL (8.8-10.2); CREATININE FOR GFR 2.04 MG/DL (0.70-1.30); GLOMERULAR FILTRATION RATE 33.4 (>35); POTASSIUM SERUM 4.1 MEQ/L (3.5-5.1); TOTAL PROTEIN 6.1 GM/DL (6.4-8.2)
[2017-01-21] MEDS ORDERED: BISACODYL 10 MG SUPP PR PRN (13:45)
[2017-01-21] MEDS ORDERED: ONDANSETRON 4MG/2ML VIAL (J2405) IV PRN (13:45)
[2017-01-21] MEDS ORDERED: FLEET ENEMA PR PRN (13:45)
[2017-01-21] MEDS ORDERED: MOM 30ML SUSPENSION UDC PO PRN (13:45)
--- NOTE | 2017-01-21 15:36 | HPEPDOC ---
General Date of Admission Jan 21, 2017 at 13:36 Primary Care Physician: Jr Ortega Collins Chief Complaint The patient is a 81-year-old male admitted with a reason for visit of Atrial Fibrillation With Slow Ventricular Response. Source: Patient, Family Exam Limitations: Other (confusion) Timing/Duration: Day(s) (3-4) Severity: Moderate Associated Symptoms: Weakness History of Present Illness 81 y/o male with past medical history of DM2, PAD< CAD s/p CABG in the , dyslipidemia, alcoholic liver cirrhosis, a. fib. not anticoagulated due to hx of bleeding gastric ulcer and anemia, MYRNA on 2 L O2 at night and CPAP, hx GI bleeds, diastolic HF with last ECHO 10/2015 showing LVH and EF 60% resident of [facility] who presents today with son for confusion and generalized weakness for the past 4-5 days. The son who is at bedside stated that the pt just lost his recently to a stroke and was moved to [facility] a couple months ago, he was admitted at that time due to SOB. The son states that his father had admitted to 3-4 episodes of loose stool, without blood or mucus although the son is not entirely sure and states that his father has "macular degeneration" and wouldn' t be able to tell anyway, he also states that for the past 3 days he has been more confused. Apparently another child went to pick him up one day ago for [employer], after speaking to him for five minutes the pt stated "why are you here again"? Apparently this is abnormal behavior for the pt., the son denies history of stroke or dementia for the pt. Between himself and seven other siblings they keep a relatively close watch on him at [facility]. He does state that the pt has liver cirrhosis from heavily alcohol use in his 30-40's, but has since cut back and may have one beer every couple weeks, states that nothing has been done to further evaluate the cirrhosis since they were told "that it is stable". The son states that there has been no recent antibiotic use by the pt and his meds have not changed, He does have hx of CHF diastolic, but the son states he hasn't noted any increase in b/l lower extremity swelling or increase in SOB by pt. He states he has been eating appropriately and voiding without pain or blood. He does have hx of paroxysmal a. fib as per son, and apparently his beta nya medication was decreased about 6 months ago due to drops in blood pressure and associated dizzyness. The pt does state that he feels his legs have been weak lately, denied any fall or injury, and that with the episodes of diarrhea that some of them he has not been able to control, not incontinent of urine however. He states the diarrhea has resolved. He also denies CP, SOB, heart palpitations or feeling dizzy, nauseated, although the son states its typical for him to "not complain". Son does state his father is not compliant with his fluid restricted diet and often drinks as much liquid as he wants. Home Medications Scheduled (Armando Yeager) 300 Unit/Ml Inj, 90 UNIT SC QAM, (Reported) (Fish Oil 1200 mg) 1 Cap Cap, 1 CAP PO DAILY, (Reported) Allopurinol (Allopurinol) 100 Mg Tab, 200 MG PO DAILY, (Reported) Aspirin (Aspirin EC) 81 Mg Tab, 81 MG PO DAILY, (Reported) B1/B2/B3/B5/B6 (Vitamin B Complex) 1 Tab Tab, 1 TAB PO DAILY, (Reported) Bisoprolol Fumarate (Bisoprolol Fumarate) 5 Mg Tab, 5 MG PO BID, (Reported) Colchicine (Colchicine) 0.6 Mg Tab, 0.6 MG PO DAILY, (Reported) Digoxin (Digoxin) 0.125 Mg Tab, 0.0625 MG PO DAILY, (Reported) Docusate Sod/Senna (Senna S 8.6-50 mg) 1 Tab Tab, 1 TAB PO DAILY, (Reported) Ferrous Gluconate (Ferrous Gluconate) 324 Mg Tab, 324 MG PO BID, (Reported) Gabapentin (Gabapentin) 800 Mg Tab, 800 MG PO BID, (Reported) Gabapentin (Gabapentin) 400 Mg Cap, 400 MG PO DAILY, (Reported) NOONTIME Insulin Human Lispro (Humalog) 1 Units/0.01 Ml Inj, 26 UNITS SC AC, (Reported) Metformin Hydrochloride (Metformin HCl ER) 1,000 Mg Tab, 1,000 MG PO BID, ( Reported) Multivitamins *[facility]* (Thera M Plus *[facility]*) 1 Tab Tab, 1 TAB PO DAILY, (Reported) Omeprazole (Omeprazole) 40 Mg Cap, 40 MG PO BID, (Reported) Potassium Chloride (Klor-Con M10) 10 Meq Tabcr, 10 MEQ PO BID, (Reported) Simvastatin - High Dose (Simvastatin) 40 Mg Tab, 40 MG PO QHS, (Reported) Spironolactone (Spironolactone) 25 Mg Tab, 12.5 MG PO BID, (Reported) Sucralfate (Sucralfate) 1 Gm Tab, 1 GM PO QID, (Reported) Torsemide (Torsemide) 20 Mg Tab, 60 MG PO BID, (Reported) 0800/1300 Scheduled PRN (Biotene Dry Mouth Oral Ri) 1 Liq Liq, 15 ML SSP BID PRN for DRY MOUTH, ( Reported) Acetaminophen (Acetaminophen) 325 Mg Tab, 650 MG PO Q4H PRN for PAIN, (Reported) Bisacodyl (Bisacodyl) 10 Mg Sup, 10 MG OK DAILY PRN for CONSTIPATION, (Reported) Milk Of Magnesia (Milk of Magnesia) 1,200 Mg/15 Ml Karla, 30 ML PO DAILY PRN for CONSTIPATION, (Reported) Sodium Phosphate/Biphosphate (Enema 7-19 gm/118Ml) 1 Ying Ying, 1 YING OK DAILY PRN for CONSTIPATION, (Reported) Allergies Coded Allergies: Atorvastatin (Unverified Allergy, Unknown, 11/11/15) Past Medical History Medical History CHf diastolic A fib PAD CAD s/p CABG in MYRNA on 2 L O2 and CPAP at night hx GI bleeds s/p ulcer ligation liver cirrhosis dm2 HTN Family History Significant Family History: No pertinent family hx Social History * Smoker: former Smoker (used to smoke 1 ppd for 10 years in his 20's) Alcohol: occationally (used to drink heavily in his 20's, occassional beer once every couple wks now) Drugs: denies Psychosocial History: No pertinent psych hx lives in nursing facility Review of Symptoms Constitutional: Reports: Weakness, Lethargy, Denies: Chills, Fever, Malaise, Night Sweats, Fatigue, Weight Loss Eyes: Denies: Pain, Vision change ENT: Denies: Head Aches, Ear Pain Skin: Denies: Rash, Lesions Pulmonary: Denies: Dyspnea, Cough, Pleuritic Chest Pain Cardiovascular: Reports: Edema, Denies: Chest Pain, Palpitations, Orthopnea Gastrointestinal: Denies: Nausea, Vomiting, Abdominal Pain, Diarrhea, Constipation Genitourinary: Denies: Dysuria, Frequency Neurological: Reports: Weakness, Confusion, Denies: Numbness, Incoordination, Change in speech Psych: Reports: Memory Issues Physical Examination General Exam: Positive: Alert, Cooperative, No Acute Distress Eye Exam: Positive: PERRLA, Conjunctiva & lids normal, EOMI, Negative: Sclera icteric, Ptosis ENT Exam: Positive: Atraumatic Chest Exam: Positive: Clear to auscultation, Normal air movement, Negative: Rales, Rhonchi, Wheezing, Diminished Heart Exam: Positive: Bradycardic (rates 40's), Normal S1, Normal S2 Telemetry: Positive: Atrial fibrillation Abdomen Exam: Positive: Normal bowel sounds, Soft, Negative: Tenderness, Hepatospenomegaly, Mass Extremity Exam: Positive: Edema (b/l LE +2), Negative: Clubbing, Cyanosis Skin Exam: Positive: Nl turgor and temperature, Negative: Rash, Breakdown, Lesion Neuro Exam: Positive: Normal Speech, Normal Tone, Sensation Intact, Cranial Nerves 3-12 NL, Negative: Strength at 5/5 X4 ext (strength b/l LE +3-4, preserved 5/5 upper extremities b/l) Psych Exam: Positive: Mental status NL, Negative: Memory Intact, Oriented x 3 (thinks he is in [place]) Vital Signs Vital Signs Date Time Temp Pulse Resp B/P (MAP) Pulse Ox O2 Delivery O2 Flow Rate FiO2 01/21/17 14:09 42 99 01/21/17 14:03 144/47 (79) 01/21/17 12:24 98.2 20 2.0 Laboratory Data Labs 24H Laboratory Tests 2 01/21/17 12:44: White Blood Count 6.9, Red Blood Count 2.87L, Hemoglobin 7.9L, Hematocrit 25.9L , Mean Corpuscular Volume 90.2, Mean Corpuscular Hemoglobin 27.5, Mean Corpuscular Hemoglobin Concent 30.5L, Red Cell Distribution Width 21.4H, Platelet Count 92L, Monocytes (%) (Auto) , Monocytes # (Auto) , Neutrophils 65, Lymphocytes (Manual) 27, Monocytes (Manual) 6, Eosinophils (Manual) 2, Platelet Estimate NORMAL, Anisocytosis 1+, Prothrombin Time 16.1H, Prothromb Time International Ratio 1.26, Activated Partial Thromboplast Time 30.1, Anion Gap 13 , Glomerular Filtration Rate 33.4L, Calcium Level 8.8, Aspartate Amino Transf ( AST/SGOT) 35, Alanine Aminotransferase (ALT/SGPT) 25, Alkaline Phosphatase 113, Total Bilirubin 0.6, Direct Bilirubin 0.3H, Total Creatine Kinase 29L, Creatine Kinase MB 1.7, Creatine Kinase MB Relative Index 5.86H, Troponin I 0.07, Total Protein 6.1L, Albumin 3.2, Albumin/Globulin Ratio 1.10, Lipase 379, Digoxin Level 0.5 01/21/17 14:06: Ammonia 39H CBC/BMP Laboratory Tests 01/21/17 12:44 Red Blood Count 2.87 L, Mean Corpuscular Volume 90.2, Mean Corpuscular Hemoglobin 27.5, Mean Corpuscular Hemoglobin Concent 30.5 L, Red Cell Distribution Width 21.4 H, Monocytes (%) (Auto) , Monocytes # (Auto) Problems (1) Cognitive decline Status: Acute Response to Treatment: Stable Problem Text: Will check ammonia and TSH cardiac marker first set neg., will trend EKG no signs for ischemia in ED admit to telemetry aspirin 81 precaution d/c spirolactone and torsemide until creatine normalizes, then consider adding back on afebrile, CXR pending urine cx pending white count 6.9 (2) A-fib Status: Chronic Response to Treatment: Stable Problem Text: paroxysmal a. fib hx., demonstrating slow a. fib in ED with rate in low 40's rate in high 30's- 40's- avoid beta blockade medications at this time-seems pt on bisoprolol 5 BID hold anticoagulation in light of hx ulcer bleed s/p ligation pt takes home Digoxin, level .5, will hold for now inr 1.26 admit to telemetry cardiology consulted-greatly appreciate their recommendations, could be candidate for pacemaker for symptomatic bradycardia (3) Weakness Status: Acute Response to Treatment: Stable Problem Text: pts neuro exam does show some decreased strength b/l LE, preserved UE strength, sensation intact throughout upper and lower extremities, no saddle anesthesia-sensation intact upper, inner thigh most likely secondary to dehydration from diarrhea electrolytes WNL replete as necessary suspect could be 2/2 low Hg, type and cross and transfuse x2 pRBC. will check B12 level Glucose 142 (4) Diastolic CHF Status: Acute Response to Treatment: Stable Problem Text: on chronic d/c torsemide and spirnolactone-in light of CLIFF, will not begin fluids due to CHF hx., once creatine normalizes may consider add on of diuretics no SOB, lung exam did not reveal crackles strict I&O CXR pending pt intake is good, will avoid adding fluids right now fluid restriction once creatine normalizes first card marker neg-will trend EKG no sign for ischemic changes, slow. a. fib with rate in 40's last echo 10/2018 EF 60% with LVH (5) Diabetes Status: Chronic Response to Treatment: Stable Problem Text: sliding scale (6) MYRNA on CPAP Status: Acute Response to Treatment: Stable Problem Text: c/w O2 orders OK to use home CPAP no currently SOB (7) HTN (hypertension) Status: Chronic Response to Treatment: Stable Problem Text: 144/47 stable avoid beta blockade in light of bradycardia (8) Anemia Status: Chronic Response to Treatment: Stable Problem Text: no active bleeding suspected h/h 7.9/25.9 type and cross and transfuse 1 unit PRBC (9) Diarrhea Status: Acute Response to Treatment: Stable Problem Text: pt states he is not currently having any more issues with diarrhea denied recent abx use GI panel pending pt has good oral intake, will not begin fluids- CHF hx. (10) CLIFF (acute kidney injury) Status: Acute Response to Treatment: Stable Problem Text: seems baseline creatine 1.19 today 2.04 do not suspect obstruction but will obtain renal u/s to evaluate castellanos or intermittent cath if pt is not agreeable urine cx and analysis avoid fluids right now due to CHF and clinical edema-pt has good oral intake continue to monitor as torsemide and spirolactone continued in light of CHF (11) Dyslipidemia Status: Chronic Problem Text: c/w home statin (12) DVT prophylaxis Status: Acute Response to Treatment: Stable Problem Text: scd teds lovenox Plan / VTE VTE Prophylaxis Ordered?: Yes GME ATTESTATION GME ATTESTATION My preceptor for this patient encounter was physically present in the building during the encounter and was fully available. As needed, all aspects of the patient interview, examination, medical decision making process, and medical care plan development were reviewed and approved by the preceptor. Preceptor is aware and concurs with the plan as stated in the body of this note and will attest to such by his/her cosignature. TL JASMINE DO Jan 21, 2017 15:36
[2017-01-21] MEDS ORDERED: GLUCAGON FOR INJ 1 MG VIAL (J1610) SC PRN (16:30)
[2017-01-21] MEDS ORDERED: GLUCOSE 4 GM CHEW TABLET PO PRN (16:30)
[2017-01-21] MEDS ORDERED: DEXTROSE 50% 50 ML SYRINGE IV PRN (16:30)
--- NOTE | 2017-01-21 18:11 | ECGEPIP ---
Stationary ECG Study [facility] - ED Test Date: 2017-01-21 Pat Name: CHELI FLEMING Department: Room: [place] [address] Gender: M [employer] Social Science Teacher: francisco : 1935 Requested By: Melissa Mcmahon Order Number: [id number] Reading MD: Terry Tamayo Measurements Intervals [place] Rate: 48 P: [place]: 0 QRS: -59 QRSD: 152 T: 73 QT: 513 QTc: 460 Interpretive Statements ATRIAL FIBRIALLTION WITH SLOW VENTRICULAR RATE RIGHT BUNDLE BRANCH BLOCK LEFT ANTERIOR FASCICULAR BLOCK LEFT VENTRICULAR HYPERTROPHY AND ST-T CHANGE POSSIBLE ANTERIOR MYOCARDIAL INFARCTION, OF INDETERMINATE AGE RATE CHANGE COMPARED TO 10/08/16 Electronically Signed On 01-21-2017 18:11:42 EDT by Terry Tamayo
[2017-01-21] MEDS: HumaLOG INSULIN (NovoLOG) PER UNIT SC SCH ×3 (18:19→22:26)
[2017-01-21] MEDS: GABAPENTIN 400 MG CAP PO SCH ×2 (18:40→22:19)
[2017-01-21] MEDS: SUCRALFATE 1 GM TAB PO SCH ×2 (18:40→21:24)
[2017-01-21] MEDS ORDERED: FUROSEMIDE 100 MG/10 ML VIAL (J1940) IV ONE (19:00)
--- NOTE | 2017-01-21 19:14 | CR ---
DATE OF CONSULTATION: 01/21/2017 Mr. Martinez is an 81-year-old man who is known to me. He has chronic atrial fibrillation, chronic diastolic congestive heart failure and ischemic heart disease. He was brought to hospital by ambulance earlier today because his family noted that he has been confused and unwell for a few days. They noted that he had some loose bowel movements, also there has been more peripheral edema and he felt to them more short of breath. After arrival to emergency room he was noted to be quite bradycardic. His heart rate was around 40 beats per minute with some heart rates as low as 36 beats per minute and some in 50s, but the average probably are 40 beats per minute. He was maintaining appropriate level of consciousness. His blood pressure has been preserved as well. He was also found to be anemic and as we speak he is receiving 1 unit of packed red blood cells ordered by primary team. I was asked to see him by hospitalist service because of his bradycardia. The patient is known to have chronic atrial fibrillation dating back years. He at his baseline is on 0.125 mg of digoxin every other day plus 7.5 mg daily bisoprolol. It appears that the last dose of digoxin and bisoprolol was administered this morning. At the time of my evaluation he is in PCU bed. He does not seem to be in any distress but does admit that he is more short of breath than usual. He denies any chest pain and he denies any dizziness, near syncope/syncope. PAST MEDICAL HISTORY: 1. Chronic atrial fibrillation as above. 2. Type 2 diabetes, 3. Ischemic heart disease. He underwent coronary artery bypass surgery in October 1987 (receive HAMMONDS to LAD, SVG to diagonal and PDA and sequential SVG to OM1 and OM2). His last echocardiogram was in 2014 and revealed LVH with overall mildly reduced near normal LV systolic function with severe biatrial enlargement, elevated CVP and at least mild pulmonary hypertension. 4. Hypertension. 5. Type 2 diabetes. 6. Dyslipidemia. 7. Probably alcoholic liver cirrhosis (he quit drinking years ago). 8. Obstructive sleep apnea on C-PAP. SURGICAL HISTORY: Positive for bypass surgery, appendectomy and surgery for deviated septum. OUTPATIENT MEDICATIONS: - allopurinol 100 a day - aspirin 81 a day - bisoprolol 7.5 a day - digoxin 0.125 mg every other day - colchicine as needed for flare-up of gout - insulin - iron sulfate 325 a day - torsemide variable dosing depending on presence or absence of edema - gabapentin 400 at 2 a.m. and 02:00 p.m. - garlic - fish oil - metformin 2 grams a day - simvastatin 40 a day - spironolactone a half of 25 mg tablet a day - sucralfate - multivitamin He reports intolerance to NSAIDs, specifically Naprosyn. SOCIAL HISTORY: The patient is recently . He is currently in assisted living. He apparently was a heavy drinker in his 40s but has not been drinking for years. He is retired from post office. He has two sons that are at bedside. REVIEW OF SYSTEMS: They deny any recent fever, chills, nausea or vomiting. He did have some diarrhea. He has baseline [place] Heart [employer] class III dyspnea and it is somewhat worse in last 2 or 3 days. No syncope or near syncope. No abdominal pain. Peripheral edema has been present the last few days, at his baseline is minimal. PHYSICAL EXAMINATION: Mr. Martinez is an elderly man who is obese. He appears to be in no distress. Vital signs: Blood pressure 122/60, heart rate around 40, irregularly irregular. He is afebrile. Saturation is 100% on 3 liters of oxygen by nasal cannula. He has a defibrillator patches on his chest. His fluid balance since admission is documented about 600 negative, he had a urine output about 600 mL just recently, a minute before I stepped into the room. Weight is documented at 102 kg. His JVP is high, at least 4-5 cm above clavicle. Lungs reveal end inspiratory bilateral crackles that are fairly fine but air movement is good. I do not appreciate any wheezing. Heart exam reveals rather muffled heart sound due to his obesity. There is widely splitting second heart sound. I do not appreciate a murmur or gallop. Abdomen is very protuberant but soft. No shifting dullness appreciated. Bowel sounds are positive. Extremities about 2+ edema to his knees. Neurologically he is alert and oriented times three. I do not appreciate any focal weakness. LABORATORY DATA: As of today hemoglobin 7.9, hematocrit 25.9, platelet count 92,000, WBC count 6.9. Basic metabolic panel: Potassium 4.1, sodium 134, BUN 53, creatinine 2.0 for GFR of 33 and glucose 142, normal liver function tests, ammonia level is 39, CK 29, MB 1.7, troponin 0.07, albumin is 3.2. Amylase and lipase are negative and TSH is 2.1. Digoxin level is 0.5, INR is 1.3. He did not have a chest x-ray performed in emergency room. A renal ultrasound was done, the official report is still pending. ECG reveals presence of atrial fibrillation with ventricular rate 48 beats per minute. Right bundle branch block, left anterior fascicular hemiblock and diffuse nonspecific ST-T abnormalities. It is similar to the EKG performed in September even though the bradycardia is new. QRS morphology though is unchanged. ASSESSMENT/PLAN: Mr. Martinez is an 81-year-old man who has underlying coronary artery disease and chronic diastolic heart failure who presents with a few days of confusion, edema and worsening dyspnea. He certainly has several reasons to be dyspneic, but I suspect that the underlying bradycardia is a significant player. Even though there were no changes in medications lately, family reports that he may have had a viral illness a few days ago. In any case, the bradycardia is likely a significant factor. It is almost certainly a consequence of his medications. Even though I do not see any definite evidence that he needs a pacemaker placement, I think we will monitor him and if I see anymore drastic bradycardia, we either start dobutamine or place temporary pacemaker. I talked about this plan with the patient and his family. They are all in agreement and want to proceed if necessary. The patient is DO NOT INTUBATE/DO NOT RESUSCITATE and they certainly do not want any resuscitative measures, but short of that they want maximum therapy which I think is perfectly appropriate. He is currently receiving 1 unit of packed red blood cells. I will give him a single dose of diuretic afterwards but I do not want to give him more blood as he is volume overloaded as it is. His condition is certainly guarded and on account of multiple medical issues, is probably going to take some time before and if it will turn around.
[2017-01-21 20:00] VITALS: BP_SYST 127; BP_SYST 141; BP_DIAS 61; BP_DIAS 63
[2017-01-21] MEDS ORDERED: TORSEMIDE 20 MG TAB PO SCH (21:00)
[2017-01-21] MEDS ORDERED: SPIRONOLACTONE 12.5MG PER 1/2 TABLET PO SCH (21:00)
[2017-01-21] MEDS: FERROUS GLUCONATE 324 MG TAB PO SCH (21:23)
[2017-01-21] MEDS: SIMVASTATIN 40 MG TAB PO SCH (21:24)
[2017-01-21] MEDS: OMEPRAZOLE 20 MG CAP PO SCH (21:24)
[2017-01-21] MEDS: POTASSIUM CHLORIDE 10 MEQ SR TABLET PO SCH (21:24)
[2017-01-22] VITALS: BP 174/69
[2017-01-22 04:00] VITALS: BP 141/65
--- NOTE | 2017-01-22 05:32 | REP ---
RENAL ULTRASOUND: HISTORY: Acute renal failure. The kidneys are normal in echogenicity. The right kidney measures 6.1 cm in transverse by 5.7 cm in AP by 11.8 cm in cephalocaudal dimensions. The left kidney measures 4.7 cm in transverse by 6.3 cm in AP by 12.8 cm in cephalocaudal dimensions. There is no hydronephrosis or mass. The urinary bladder is distended. There are no filling defects in the urinary bladder. IMPRESSION: Normal renal ultrasound. Signed by Vaibhav Beltre MD 01/22/2017 08:42 A
[2017-01-22 05:39] LABS: MEAN CORPUSCULAR HEMOGLOBIN 28.5 pg (27.0-33.0); MEAN CORPUSCULAR HGB CONC 31.5 g/dl (32.0-36.5); MEAN CORPUSCULAR VOLUME 90.4 fl (80.0-96.0); PLATELET COUNT, AUTOMATED 87 10^3/uL (150-450); WHITE BLOOD COUNT 7.9 10^3/uL (4.0-10.0)
[2017-01-22 05:42] LABS: ADD MANUAL DIFFER YES; DIFF SLIDE NUMBER 50; RED CELL DISTRIBUTION WIDTH 20.6 % (11.5-14.5)
[2017-01-22 06:11] LABS: CREATININE FOR GFR 2.12 MG/DL (0.70-1.30); GLOMERULAR FILTRATION RATE 31.9 (>35); POTASSIUM SERUM 4.5 MEQ/L (3.5-5.1)
[2017-01-22 06:36] LABS: BANDS 1 % (< 11); EOSINOPHILS 2 % (0-5)
[2017-01-22 06:37] LABS: ANISOCYTOSIS 2+; POIKILOCYTOSIS 1+
[2017-01-22 08:00] VITALS: BP 140/63
[2017-01-22] MEDS ORDERED: FUROSEMIDE 100 MG/10 ML VIAL (J1940) IV ONE (08:00)
--- NOTE | 2017-01-22 08:01 | IPN ---
DATE: 01/22/2017 Mr. Martinez was able to sleep throughout the night relatively well. This morning, he tells me that he still feels somewhat short of breath, but has no other complaints. He does not feel dizzy or lightheaded and does not have any chest pain. His heart rate throughout the night was in a very bradycardiac range and averaged probably low 40s, but he dipped sometimes in the low 30s, but occasionally would be in the 50s. Blood pressure 141/65, heart rate 52, afebrile, saturation 96% on 2 liters of oxygen by nasal cannula. His fluid balance yesterday was documented about a liter negative. Weight is 102 kg. He already made to 850 mL of urine today. His jugular venous pulse (JVP) is still high. Lungs do sound pretty clear to auscultation bilaterally with good air movement. Heart exam reveals bradycardic, irregular rhythm and rate about 45. There is some murmur at the apex, not very prominent. Somewhat muffled heart sounds due to his obesity. Abdomen remains distended, but I do not appreciate any shifting dullness. There is about 1 to 2+ edema to his knees. Neurologically, he is alert and oriented times three. I do not appreciate any focal weakness. Laboratories: CBC reveals hemoglobin 9.2, hematocrit 29 and platelet count 87,000. Basic metabolic panel: potassium 4.5, BUN 63 and creatinine 2.1 for a GFR of 32. Cardiac enzymes have been negative. ASSESSMENT/PLAN: Mrs. Martinez is an 81-year-old man who has chronic diastolic congestive heart failure and chronic atrial fibrillation that was previously well controlled on a combination of bisoprolol 7.5 mg daily plus digoxin 0.125 mg every other day. He presented with about 5 days of mildly altered mental status and was found to be extremely bradycardic with slow atrial fibrillation. We did not make much progress with his bradycardia. He has not received any AV eladio blocking medication now for approximately 24 hours. The bisoprolol half line is approximately 10 hours, but he also has underlying liver cirrhosis as well as renal insufficiency and consequently I believe that in his case it is longer than that. I do not believe that we have to talk pacemaker as yet. He has been maintaining his blood pressure. He is having urine output and consequently I think we can wait. I would consider administering a small dose of dobutamine if I do not see improvement by the end of the day. On the other hand, if he continues to be markedly bradycardic then pacemaker certainly would be indicated. For the time being, I would continue observation. As far as congestive heart failure is concerned, he is certainly volume overloaded but has been responding favorably to IV diuretics and I would continue administration on an as-needed basis. I will order 80 mg for him to receive this morning. I will follow the patient with you.
[2017-01-22] MEDS: ENOXAPARIN 30 MG/0.3 ML SYR (J1650) SC SCH (08:30)
[2017-01-22] MEDS: HumaLOG INSULIN (NovoLOG) PER UNIT SC SCH ×5 (08:30→21:12)
[2017-01-22] MEDS: POTASSIUM CHLORIDE 10 MEQ SR TABLET PO SCH ×2 (08:31→20:55)
[2017-01-22] MEDS: ASPIRIN 81 MG ENTERIC TAB PO SCH (08:31)
[2017-01-22] MEDS: OMEPRAZOLE 20 MG CAP PO SCH ×2 (08:31→20:55)
[2017-01-22] MEDS: GABAPENTIN 400 MG CAP PO SCH ×3 (08:31→20:55)
[2017-01-22] MEDS: ALLOPURINOL 100 MG TAB PO SCH (08:31)
[2017-01-22] MEDS: VITAMIN B COMPLEX/VIT C CAP PO SCH (08:31)
[2017-01-22] MEDS: MULTIVITAMINS/MINERALS THERAP 1 TAB PO SCH (08:31)
[2017-01-22] MEDS: SUCRALFATE 1 GM TAB PO SCH ×4 (08:31→20:55)
[2017-01-22] MEDS: FERROUS GLUCONATE 324 MG TAB PO SCH ×2 (08:31→20:55)
[2017-01-22] MEDS: SENOKOT S TAB PO SCH (08:32)
[2017-01-22] MEDS: COLCHICINE 0.6 MG TAB PO SCH (08:32)
[2017-01-22] MEDS ORDERED: COLCHICINE 0.6 MG TAB PO SCH (09:00)
[2017-01-22] MEDS ORDERED: VITAMIN B COMPLEX/VIT C CAP PO SCH (09:00)
--- NOTE | 2017-01-22 10:07 | IPNPDOC ---
Subjective Date Seen The patient was seen on 01/22/17. Subjective Chief Complaint/HPI The patient is a 81-year-old male admitted with a reason for visit of Atrial Fibrillation With Slow Ventricular Response. General: Denies: Chills, Night Sweats Constitutional: Reports: Malaise, Weakness, Fatigue, Denies: Chills, Fever, Night Sweats Eyes: Denies: Pain, Vision change ENT: Denies: Head Aches, Ear Pain Skin: Denies: Rash, Lesions Pulmonary: Reports: Dyspnea, Cough, Denies: Pleuritic Chest Pain, Other Symptoms Cardiovascular: Reports: Orthopnea, Paroxysmal Noc. Dyspnea, Edema, Lt Headedness, Denies: Chest Pain, Palpitations Gastrointestinal: Denies: Nausea, Vomiting, Abdominal Pain, Diarrhea, Constipation Genitourinary: Denies: Dysuria, Frequency Musculoskeletal: Denies: Neck Pain Neurological: Reports: Weakness, Denies: Numbness Psych: Reports: Mood Normal, Memory Issues Objective Physical Examination General Exam: Positive: Alert, Cooperative, Mild Distress (seems to be minimally SOB) Eye Exam: Positive: PERRLA, Conjunctiva & lids normal, EOMI, Negative: Sclera icteric, Ptosis ENT Exam: Positive: Atraumatic Chest Exam: Positive: Clear to auscultation, Normal air movement, Other (end inspiratory crackles b/l), Negative: Rales, Rhonchi, Wheezing, Diminished Heart Exam: Positive: Bradycardic (rates 40's), Normal S1, Normal S2 Telemetry: Positive: Atrial fibrillation Abdomen Exam: Positive: Normal bowel sounds, Soft, Negative: Tenderness, Hepatospenomegaly, Mass Extremity Exam: Positive: Edema (b/l LE +2), Negative: Clubbing, Cyanosis Skin Exam: Positive: Nl turgor and temperature, Negative: Rash, Breakdown, Lesion Neuro Exam: Positive: Normal Speech, Normal Tone, Sensation Intact, Cranial Nerves 3-12 NL, Negative: Strength at 5/5 X4 ext (strength b/l LE +3-4, preserved 5/5 upper extremities b/l) Psych Exam: Positive: Mental status NL, Negative: Memory Intact, Oriented x 3 (Not fully oriented. ) Assessment /Plan Problems (1) Cognitive decline Status: Acute Response to Treatment: Stable Problem Text: ammonia elevated at 49 and TSH pending cardiac marker first setx4 neg. EKG no signs for ischemia in ED, repeat EKG ordered for this AM heart rate continues to be in 40's admit to telemetry aspirin 81 precaution will c/w spirolactone and torsemide now, pt edematous on exam +2 b/l LE- pt BNP back at 3597. afebrile, CXR pending urine cx pending white count 6.9 (2) A-fib Status: Chronic Response to Treatment: Stable Problem Text: paroxysmal a. fib hx., demonstrating slow a. fib in ED with rate in low 40's overnight pt slept well but HR was in low 40's and sometimes low 30's, will continue to monitor, would like to see HR in 50's by tomorrow - avoid beta blockade medications at this time-seems pt on bisoprolol at home hold anticoagulation in light of hx ulcer bleed s/p ligation pt takes home Digoxin, level .5, will hold for now inr 1.26 admit to telemetry cardiology consulted-greatly appreciate their recommendations-will continue to monitor pt and he may need dobutamine or temporary pacemaker for symptomatic bradycardia (3) Weakness Status: Acute Response to Treatment: Stable Problem Text: pts neuro exam in ED did show some decreased strength b/l LE, preserved UE strength, sensation intact throughout upper and lower extremities, no saddle anesthesia-sensation intact upper, inner thigh most likely secondary to dehydration from diarrhea electrolytes WNL replete as necessary suspect could be 2/2 low Hg, pt is s/p blood transfusion-will hold any further transfusions as pt is fluid overload will check B12 level-pending (4) Diastolic CHF Status: Acute Response to Treatment: Stable Problem Text: c/w torsemide and spirnolactone- pt BNP back at 3597 and edematous on PE +2 /l LE, received lasix this morning no SOB, lung exam showed end inspiratory crackles b/l strict I&O pt intake is good, will avoid adding fluids or another transfusion of blood as pt is edematous and fluid overloaded fluid restriction once creatine normalizes x4 card marker neg EKG no sign for ischemic changes, slow. a. fib with rate in 40's continues today , repeat EKG ordered last echo 10/2014 EF 60% with LVH (5) Diabetes Status: Chronic Response to Treatment: Stable Problem Text: sliding scale (6) MYRNA on CPAP Status: Acute Response to Treatment: Stable Problem Text: c/w O2 orders OK to use home CPAP no currently SOB (7) HTN (hypertension) Status: Chronic Response to Treatment: Stable Problem Text: 140/63 stable avoid beta blockade in light of bradycardia (8) Anemia Status: Acute Response to Treatment: Stable Problem Text: no active bleeding suspected h/h 7.9/25.9 type and cross and transfuse 1 unit PRBC (9) Diarrhea Status: Acute Response to Treatment: Stable Problem Text: pt states he is not currently having any more issues with diarrhea denied recent abx use GI panel pending pt has good oral intake, will not begin fluids- CHF hx. and fluid overload (10) CLIFF (acute kidney injury) Status: Acute Response to Treatment: Stable Problem Text: seems baseline creatine 1.19 today 2.12 from 2.04 do not suspect obstruction- renal u/s negative urine cx and analysis pending avoid fluids right now due to CHF and clinical edema-pt has good oral intake continue to monitor, can c/w torsemide and spirolactone continued in light of CHF pt received IV lasix this morning (11) Dyslipidemia Status: Chronic Problem Text: c/w home statin (12) DVT prophylaxis Status: Acute Response to Treatment: Stable Problem Text: scd teds lovenox Plan/VTE VTE Prophylaxis Ordered?: Yes Plan/Urinary Catheter Reason for insertion/continuin: Acute obstruct/retention VS, I&O, 24H, Fishbone Vital Signs/I&O Vital Signs Date Time Temp Pulse Resp B/P (MAP) Pulse Ox O2 Delivery O2 Flow Rate FiO2 01/22/17 08:00 97.3 48 18 140/63 (88) 98 Room Air 01/22/17 04:00 2.0 I&O- Last 24 Hours up to 6 AM 01/23/17 06:00 Intake Total 0 ml Output Total 0 ml Balance 0 ml Laboratory Data 24H LABS Laboratory Tests 2 01/21/17 12:44: White Blood Count 6.9, Red Blood Count 2.87L, Hemoglobin 7.9L, Hematocrit 25.9L , Mean Corpuscular Volume 90.2, Mean Corpuscular Hemoglobin 27.5, Mean Corpuscular Hemoglobin Concent 30.5L, Red Cell Distribution Width 21.4H, Platelet Count 92L, Monocytes (%) (Auto) , Monocytes # (Auto) , Neutrophils 65, Lymphocytes (Manual) 27, Monocytes (Manual) 6, Eosinophils (Manual) 2, Platelet Estimate NORMAL, Anisocytosis 1+, Prothrombin Time 16.1H, Prothromb Time International Ratio 1.26, Activated Partial Thromboplast Time 30.1, Anion Gap 13 , Glomerular Filtration Rate 33.4L, Calcium Level 8.8, Aspartate Amino Transf ( AST/SGOT) 35, Alanine Aminotransferase (ALT/SGPT) 25, Alkaline Phosphatase 113, Total Bilirubin 0.6, Direct Bilirubin 0.3H, Total Creatine Kinase 29L, Creatine Kinase MB 1.7, Creatine Kinase MB Relative Index 5.86H, Troponin I 0.07, Total Protein 6.1L, Albumin 3.2, Albumin/Globulin Ratio 1.10, Lipase 379, Vitamin B12 Level 459, Thyroid Stimulating Hormone (TSH) 2.060, Digoxin Level 0.5 01/21/17 14:06: Ammonia 39H 01/21/17 18:23: Total Creatine Kinase 37L, Creatine Kinase MB 1.7, Creatine Kinase MB Relative Index 4.59H, Troponin I 0.07 01/21/17 22:22: Bedside Glucose (Misc Panel) 150H 01/22/17 00:00: Total Creatine Kinase 34L, Creatine Kinase MB 1.8, Creatine Kinase MB Relative Index 5.29H, Troponin I 0.07 01/22/17 05:26: Total Creatine Kinase 35L, Creatine Kinase MB 1.7, Creatine Kinase MB Relative Index 4.85H, Troponin I 0.07, White Blood Count 7.9, Red Blood Count 3.23L, Hemoglobin 9.2L, Hematocrit 29.2L, Mean Corpuscular Volume 90.4, Mean Corpuscular Hemoglobin 28.5, Mean Corpuscular Hemoglobin Concent 31.5L, Red Cell Distribution Width 20.6H, Platelet Count 87L, Monocytes (%) (Auto) , Monocytes # (Auto) , Neutrophils 66, Band Neutrophils 1, Lymphocytes (Manual) 23 , Monocytes (Manual) 8, Eosinophils (Manual) 2, Platelet Estimate DECREASED, Poikilocytosis 1+, Anisocytosis 2+, Anion Gap 13, Glomerular Filtration Rate 31.9L, Blood Urea Nitrogen 63H, Creatinine 2.12H, Sodium Level 134L, Potassium Level 4.5, Chloride Level 98, Carbon Dioxide Level 23, Calcium Level 9.0 01/22/17 07:07: Estimated Mean Plasma Glucose 131H, Hemoglobin A1c 6.2, Ammonia 47H, NT-Pro-B- Type Natriuretic Peptide 3597H CBC/BMP Laboratory Tests 01/21/17 12:44 Red Blood Count 2.87 L, Mean Corpuscular Volume 90.2, Mean Corpuscular Hemoglobin 27.5, Mean Corpuscular Hemoglobin Concent 30.5 L, Red Cell Distribution Width 21.4 H, Monocytes (%) (Auto) , Monocytes # (Auto) 01/22/17 05:26 Red Blood Count 3.23 L, Mean Corpuscular Volume 90.4, Mean Corpuscular Hemoglobin 28.5, Mean Corpuscular Hemoglobin Concent 31.5 L, Red Cell Distribution Width 20.6 H, Monocytes (%) (Auto) , Monocytes # (Auto) , Calcium Level 9.0, Total Creatine Kinase 35 L GME ATTESTATION GME ATTESTATION My preceptor for this patient encounter was physically present in the building during the encounter and was fully available. As needed, all aspects of the patient interview, examination, medical decision making process, and medical care plan development were reviewed and approved by the preceptor. Preceptor is aware and concurs with the plan as stated in the body of this note and will attest to such by his/her cosignature. TL JASMINE DO Jan 22, 2017 10:07 MATEUSZ CARRANZA DO Feb 06, 2017 17:21
[2017-01-22 10:16] LABS: IMMATURE PLATELET FRACTION % 10.3 % (0.0-10.9)
[2017-01-22 12:00] VITALS: BP_SYST 114; BP_SYST 126; BP_SYST 134; BP_SYST 142; BP_DIAS 64; BP_DIAS 72; BP_DIAS 74
[2017-01-22 16:00] VITALS: BP 142/67
--- NOTE | 2017-01-22 16:14 | REP ---
Portable chest, single AP view, 12, 16 p.m., 01/21/2017. A stat report was given 12:47 p.m. 11/20/2016. Comparison studies are 12/25/2016 and 10/08/2016. The interstitial markings have increased compatible with acute on chronic interstitial changes. There are sternotomy wires and cardiomegaly. These are unchanged. There are no pleural effusions. Impression: Increased interstitial coarsening compatible with acute on chronic interstitial disease. Signed by Matt Amaro MD 01/22/2017 04:05 P
[2017-01-22 20:00] VITALS: BP 123/56
[2017-01-22] MEDS: SIMVASTATIN 40 MG TAB PO SCH (20:54)
--- NOTE | 2017-01-22 21:12 | ECGEPIP ---
Stationary ECG Study [facility] Test Date: 2017-01-22 Pat Name: CHELI FLEMING Department: Room: [place] [address] Gender: M Thread Checker: : 1935 Requested By: Fan Dean Order Number: [id number] Reading MD: Eric Mendez Measurements Intervals [place] Rate: 42 P: MI: 0 QRS: -70 QRSD: 165 T: 65 QT: 546 QTc: 459 Interpretive Statements ATRIAL FIBRILLATION WITH SLOW VENTRICULAR RESPONSE RIGHT BUNDLE BRANCH BLOCK LEFT ANTERIOR FASCICULAR BLOCK ST DEPRESSION, CONSIDER SUBENDOCARDIAL INJURY COMPARED TO THE LAST 3 TRACINGS IN THE SYSTEM, HEART RATE IS SLOWER OTHERWISE NO SIGNIFICANT CHANGES Electronically Signed On 01-22-2017 21:11:52 EDT by Eric Mendez
[2017-01-23] VITALS: BP 148/61
[2017-01-23 04:00] VITALS: BP 145/63
[2017-01-23 05:30] LABS: MEAN CORPUSCULAR HEMOGLOBIN 28.5 pg (27.0-33.0); MEAN CORPUSCULAR HGB CONC 31.7 g/dl (32.0-36.5); MEAN CORPUSCULAR VOLUME 89.9 fl (80.0-96.0); PLATELET COUNT, AUTOMATED 84 10^3/uL (150-450); WHITE BLOOD COUNT 6.3 10^3/uL (4.0-10.0)
[2017-01-23 05:32] LABS: ADD MANUAL DIFFER YES; DIFF SLIDE NUMBER 23; RED CELL DISTRIBUTION WIDTH 20.5 % (11.5-14.5)
[2017-01-23 05:43] LABS: CREATININE FOR GFR 1.81 MG/DL (0.70-1.30); GLOMERULAR FILTRATION RATE 38.3 (>35)
[2017-01-23] MEDS: LACTULOSE 20 GM/30 ML SYRUP UD PO SCH (06:00)
[2017-01-23 06:21] LABS: EOSINOPHILS 2 % (0-5)
[2017-01-23 06:22] LABS: ANISOCYTOSIS 2+
[2017-01-23] MEDS: HumaLOG INSULIN (NovoLOG) PER UNIT SC SCH ×6 (07:30→21:00)
[2017-01-23 07:57] LABS: RETIC HEMOGLOBIN EQUIVALENT 31.4 pg (24-36); RETICULOCYTE % 4.4 % (0.5-1.5)
[2017-01-23 08:00] VITALS: BP 139/67
[2017-01-23 08:05] LABS: REASON FOR REVIEW COMPREHENSIVE REVIEW
[2017-01-23] MEDS ORDERED: FUROSEMIDE 100 MG/10 ML VIAL (J1940) IV ONE (08:30)
--- NOTE | 2017-01-23 08:33 | IPN ---
DATE: 01/23/2017 Mr. Martinez remains about the same. He remains quite bradycardic with average heart rate approximately between 40 and 45 beats per minute, but he dips into the 30s quite frequently. No really long pauses were seen. There was no ventricular tachycardia. He still is quite short of breath. Denies any chest pain. He was a little confused earlier today apparently according to his son. When I saw him though, he was alert and oriented. He appears to be in mild respiratory difficulty. Blood pressure 145/63. Heart rate as above. Afebrile. Saturation 96% on 2 liters. Fluid balance yesterday was documented as 1600 mL negative, weight though is 109.9, which is clearly not corresponding to the weight yesterday. His jugular venous pulse (JVP) is very high. Lung sounds reveal end inspiratory crackles on both bases, but I do not appreciate wheezing. Air movement is good. Heart exam with somewhat muffled heart sounds on account of his obesity. I do not appreciate any gallop or murmur. Abdomen obese, but soft. There is still 1 to 2+ peripheral edema. Laboratory-leonardo, CBC: Hemoglobin 8.2, hematocrit 25.9, platelet count 84,000. Basic Metabolic Panel: Potassium 4.0, sodium 131, BUN 65, creatinine 1.8, glucose 152. ASSESSMENT AND PLAN: Mr. Martinez is an 81-year-old man who has coronary artery disease, chronic atrial fibrillation and liver cirrhosis. He presented with confusion and weakness and was found to be extremely bradycardic with a heart rate of around 40 beats per minute and atrial fibrillation. At this point, we have been waiting 48 hours, and even though he has not received any AV eladio controlling agent he remains still quite bradycardic. Consequently, I think it is appropriate to consider placement of a pacemaker and I will ask Dr. Galicia to assist with this endeavor. I am going to give him a dose of furosemide IV again this morning. I am hoping that with increased heart rate his cardiac output will increase and it will be somewhat easier to control his congestive heart failure.
[2017-01-23] MEDS: SUCRALFATE 1 GM TAB PO SCH (09:00)
[2017-01-23] MEDS ORDERED: LEVEMIR (INSULIN DETEMIR) 1 UNITS/0.01ML SC ONE (09:30)
[2017-01-23] MEDS ORDERED: LR 1,000 ML IV SCH (09:30)
--- NOTE | 2017-01-23 10:01 | IPNPDOC ---
Subjective Date Seen The patient was seen on 01/23/17. Subjective Chief Complaint/HPI The patient is a 81-year-old male admitted with a reason for visit of Atrial Fibrillation With Slow Ventricular Response. General: Reports: Fatigue, Denies: Chills, Night Sweats Constitutional: Reports: Malaise, Weakness, Fatigue, Denies: Chills, Fever, Night Sweats Eyes: Denies: Pain, Vision change, Conjunctivae inflammation ENT: Denies: Head Aches Skin: Denies: Rash, Lesions, Jaundice, Bruising Pulmonary: Reports: Dyspnea, Denies: Cough, Pleuritic Chest Pain Cardiovascular: Reports: Orthopnea, Edema (+1 pitting to knee b/l LE), Denies: Chest Pain, Palpitations, Paroxysmal Noc. Dyspnea, Lt Headedness Gastrointestinal: Denies: Nausea, Vomiting, Abdominal Pain, Constipation Genitourinary: Denies: Dysuria Hematologic: Denies: Bruising Neurological: Reports: Weakness, Denies: Numbness, Incoordination Psych: Reports: Mood Normal, Memory Issues Objective Physical Examination General Exam: Positive: Alert, Cooperative, Mild Distress (pt states his breathing is better today, not as SOB) Eye Exam: Positive: PERRLA, Conjunctiva & lids normal, EOMI, Negative: Sclera icteric, Ptosis ENT Exam: Positive: Atraumatic, Mucous membr. moist/pink, Tongue Midline, Nares Patent Chest Exam: Positive: Clear to auscultation, Normal air movement, Other (end inspiratory crackles b/l, minimal), Negative: Rales, Rhonchi, Wheezing, Diminished Heart Exam: Positive: Bradycardic (rates 40's), Normal S1, Normal S2 Telemetry: Positive: Atrial fibrillation Abdomen Exam: Positive: Normal bowel sounds, Soft, Negative: Tenderness, Hepatospenomegaly, Mass Extremity Exam: Positive: Edema (b/l LE +1), Negative: Clubbing, Cyanosis Skin Exam: Positive: Nl turgor and temperature, Negative: Rash, Breakdown, Lesion Neuro Exam: Positive: Normal Speech, Normal Tone, Sensation Intact, Cranial Nerves 3-12 NL, Negative: Strength at 5/5 X4 ext (strength b/l LE +3-4, preserved 5/5 upper extremities b/l) Psych Exam: Positive: Mental status NL, Negative: Memory Intact, Oriented x 3 (thinks he is in [facility]) Assessment /Plan Problems (1) Cognitive decline Status: Acute Response to Treatment: Stable Problem Text: ammonia elevated, will begin lactulose in hopes this improves mentation cardiac marker first setx4 neg. EKG demonstrate no sign of ischemia heart rate continues to be in 40's pt will receive pacemaker today-appreciate cardiology recommendations admit to telemetry aspirin 81 precaution will c/w spirolactone and torsemide now, pt edematous on exam improved s/p diuretic therapy +1 b/l LE pt BNP back at 3597. afebrile, CXR showed Increased interstitial coarsening compatible with acute on chronic interstitial disease. white count 6.3 (2) A-fib Status: Chronic Response to Treatment: Stable Problem Text: paroxysmal a. fib hx., demonstrating slow a. fib rate in 40's overnight pt slept well but HR was in low 40's and sometimes low 30's- apparently there was some concern for him wheezing, pt. has minimal end exp. wheezing b/l lower lungs, received lasix one day prior, will receive diuretic today and pacemaker this afternoon for bradycardia - avoid beta blockade medications at this time-seems pt on bisoprolol at home hold anticoagulation in light of hx ulcer bleed s/p ligation pt takes home Digoxin, level .5, will hold for now inr 1.26 cardiology consulted-greatly appreciate their recommendations-pt will receive pacemaker this afternoon and diuretics this morning (3) Weakness Status: Acute Response to Treatment: Stable Problem Text: pt will receive pacemaker today for symptomatic bradycardia ammonia elevated-will receive lactulose pts neuro exam in ED did show some decreased strength b/l LE, preserved UE strength, sensation intact throughout upper and lower extremities, no saddle anesthesia-sensation intact upper, inner thigh most likely secondary to dehydration from diarrhea electrolytes WNL replete as necessary suspect could be 2/2 low Hg, pt is s/p blood transfusion-will hold any further transfusions as pt is fluid overload B12 WNL (4) Diastolic CHF Status: Acute Response to Treatment: Stable Problem Text: pt received lasix one day prior, will receive again this morning and pacemaker this afternoon, not complaining of SOB on PE pt BNP back at 3597 and edematous on PE +2 /l LE, received lasix this morning no SOB, lung exam showed end inspiratory crackles b/l strict I&O-2.6 L out one day ago pt intake is good, will avoid adding fluids or another transfusion of blood as pt is edematous and fluid overloaded fluid restriction once creatine normalizes x4 card marker neg EKG no sign for ischemic changes, slow. a. fib with rate in 40's continues today last echo 10/2014 EF 60% with LVH (5) Diabetes Status: Chronic Response to Treatment: Stable Problem Text: c/w sliding scale glucose - 150's (6) MYRNA on CPAP Status: Acute Response to Treatment: Stable Problem Text: c/w O2 orders OK to use home CPAP no currently SOB (7) HTN (hypertension) Status: Chronic Response to Treatment: Stable Problem Text: 145/63 stable avoid beta blockade in light of bradycardia (8) Anemia Status: Acute Response to Treatment: Stable Problem Text: no active bleeding suspected h/h 8.2/25.9 LDH ordered, will order iron studies, hx of abnormal iron labs as per son type and cross and s/p transfuse 1 unit PRBC-hold additional units as pt is volume overloaded (9) Diarrhea Status: Acute Response to Treatment: Stable Problem Text: pt states he is not currently having any more issues with diarrhea denied recent abx use GI panel pending pt has good oral intake, will not begin fluids- CHF hx. and fluid overload (10) CLIFF (acute kidney injury) Status: Acute Response to Treatment: Stable Problem Text: seems baseline creatine 1.19 today 1.8 from 2.12 one day ago do not suspect obstruction- renal u/s negative avoid fluids right now due to CHF and clinical edema-pt has good oral intake continue to monitor, can c/w torsemide and spirolactone continued in light of CHF pt received IV lasix this morning, will receive additional dose this morning, pacemaker this afternoon for sx bradycardia (11) Dyslipidemia Status: Chronic Problem Text: c/w home statin (12) DVT prophylaxis Status: Acute Response to Treatment: Stable Problem Text: scd teds lovenox Plan/VTE VTE Prophylaxis Ordered?: Yes Plan/Urinary Catheter Reason for insertion/continuin: Acute obstruct/retention VS, I&O, 24H, Fishbone Vital Signs/I&O Vital Signs Date Time Temp Pulse Resp B/P (MAP) Pulse Ox O2 Delivery O2 Flow Rate FiO2 01/23/17 04:00 Nasal Cannula 2.0 01/23/17 04:00 97.2 62 18 145/63 (90) 96 Laboratory Data 24H LABS Laboratory Tests 2 01/22/17 11:58: Bedside Glucose (Misc Panel) 236H 01/22/17 21:06: Bedside Glucose (Misc Panel) 208H 01/23/17 05:08: White Blood Count 6.3, Red Blood Count 2.88L, Hemoglobin 8.2L, Hematocrit 25.9L , Mean Corpuscular Volume 89.9, Mean Corpuscular Hemoglobin 28.5, Mean Corpuscular Hemoglobin Concent 31.7L, Red Cell Distribution Width 20.5H, Platelet Count 84L, Monocytes (%) (Auto) , Monocytes # (Auto) , Neutrophils 62, Lymphocytes (Manual) 15L, Monocytes (Manual) 21H, Eosinophils (Manual) 2, Platelet Estimate DECREASED, Anisocytosis 2+, Anion Gap 9, Glomerular Filtration Rate 38.3, Blood Urea Nitrogen 65H, Creatinine 1.81H, Sodium Level 131L, Potassium Level 4.0, Chloride Level 98, Carbon Dioxide Level 24, Calcium Level 9.0 01/23/17 07:43: Reticulocyte # (auto) 137.600H, Differential Slide Review Report, Differential Pathologist's Review COMPREHENSIVE REVIEW, Peripheral Blood Smear Path Consult PERIPHERAL SMEAR, Percent Reticulocyte Count 4.4H, Reticulocyte Hemoglobin Equivalent 31.4, Ammonia 51H, Lactate Dehydrogenase 192 01/23/17 07:44: CBC/BMP Laboratory Tests 01/23/17 05:08 Red Blood Count 2.88 L, Mean Corpuscular Volume 89.9, Mean Corpuscular Hemoglobin 28.5, Mean Corpuscular Hemoglobin Concent 31.7 L, Red Cell Distribution Width 20.5 H, Monocytes (%) (Auto) , Monocytes # (Auto) , Calcium Level 9.0 GME ATTESTATION GME ATTESTATION My preceptor for this patient encounter was physically present in the building during the encounter and was fully available. As needed, all aspects of the patient interview, examination, medical decision making process, and medical care plan development were reviewed and approved by the preceptor. Preceptor is aware and concurs with the plan as stated in the body of this note and will attest to such by his/her cosignature. TL JASMINE DO Jan 23, 2017 10:01
[2017-01-23 12:00] VITALS: BP 141/66
[2017-01-23] MEDS: GABAPENTIN 400 MG CAP PO SCH (12:00)
[2017-01-23 16:00] VITALS: BP 132/67
[2017-01-23 20:00] VITALS: BP 120/58
[2017-01-23] MEDS: SIMVASTATIN 40 MG TAB PO SCH (21:00)
[2017-01-23] MEDS ORDERED: ceFAZolin 2 GM/D5W 50 ML IV BAG (J0690) As Ordered ONE (23:42)
[2017-01-23] MEDS ORDERED: LIDOCAINE 1% SDV INJ 30 ML VIAL As Ordered ONE (23:48)
[2017-01-23] MEDS ORDERED: ISOVUE-300 61% 50ML VIAL (Q9967) As Ordered ONE (23:48)
[2017-01-23] MEDS ORDERED: AMIODARONE 150MG/3ML INJ (J0282) As Ordered ONE (23:50)
[2017-01-23] MEDS ORDERED: BACITRACIN PWD 50,000 UNITS VIAL As Ordered ONE (23:50)
[2017-01-24] VITALS (8 sets, daily range): BP systolic 105–179; BP diastolic 46–92
[2017-01-24] MEDS ORDERED: fentaNYL 100 MCG/2 ML INJECTION (J3010) As Ordered ONE (00:09)
[2017-01-24] MEDS ORDERED: MIDAZOLAM INJ 2 MG/2 ML VIAL (J2250) As Ordered ONE (00:09)
[2017-01-24] MEDS ORDERED: PROPOFOL 200 MG/20 ML VIAL As Ordered ONE (00:09)
[2017-01-24] MEDS ORDERED: LIDOCAINE 2% INJ 100 MG/5 ML SDV (FOR ANES.) As Ordered ONE (00:09)
[2017-01-24] MEDS ORDERED: ONDANSETRON 4MG/2ML VIAL (J2405) IV PRN (01:00)
[2017-01-24] MEDS ORDERED: LR 1,000 ML IV SCH (01:00)
[2017-01-24] MEDS ORDERED: fentaNYL 100 MCG/2 ML INJECTION (J3010) IV PRN (01:00)
[2017-01-24] MEDS ORDERED: ACETAMINOPHEN TAB 650MG DOSE (2X325MG) As Ordered ONE (01:38)
[2017-01-24] MEDS: ACETAMINOPHEN TAB 650MG DOSE (2X325MG) PO PRN ×2 (01:41→20:16)
--- NOTE | 2017-01-24 05:29 | RO ---
DATE OF PROCEDURE: 01/24/2017 PROCEDURE: Implantation of permanent ventricular demand pacemaker. IMPLANTING MANUAL LATHE OPERATOR: Dr. Oswaldo Galicia ANESTHESIOLOGIST: Dr. Michaels with primary ceo & founder Dr. Dean PREOPERATIVE DIAGNOSES: 1. Atrioventricular (AV) block (high grade). 2. Chronic atrial fibrillation. POSTOPERATIVE DIAGNOSES: 1. Atrioventricular (AV) block (high grade). 2. Chronic atrial fibrillation. TYPE OF ANESTHESIA: Monitored local anesthesia. CLINICAL SUMMARY: This 81-year-old, , father of eight grown children, retired resident of [place] living in an assisted care facility, has been known to have ischemic and hypertensive heart disease with obstructive sleep apnea complicated by chronic atrial fibrillation. Other medical problems include psoriasis and obesity with insulin dependent diabetes mellitus. He was recently admitted to hospital because of confusion and was found to have a slow ventricular response to atrial fibrillation. Negative chronotropic therapy had been withheld and his slow ventricular rate as low as 30s per minute persisted, so permanent pacemaker was recommended. DESCRIPTION OF PROCEDURE: In the fasting state, following informed consent and Ancef 2 grams IV premedication, the patient was taken to the operating theater. Numerous skin electrodes were applied to facilitate continuous electrocardiographic monitoring. The left subclavian region was prepped and draped in usual fashion and the skin was infiltrated with 1% Xylocaine. The left axillary vein was catheterized using the micropuncture technique and a 5 cm linear incision was made several centimeters below and parallel to the left clavicle. Dissection was carried down to the level of the pectoralis fascia and a pocket was fashioned below the level of suture line. A single bipolar screw-in active fixation steroid eluding pacing lead was then advanced under fluoroscopic and electrocardiographic control to the right ventricular apex. The ventricular lead ([employer] model number [id number], serial number [id number]) measurements were: Stimulation threshold 0.4, V/0.5 ms/impedance 600 ohms. The R wave amplitude measured 8.8 mV. This lead was secured in position with sleeves sutured at their insertion site. This was then connected to a single chamber pulse generator ([employer] - Assurity MRI compatible (model number [id number], serial number [id number]) and appropriate VVI pacing was documented. The generator was placed in the pocket and secured in position with a suture through the right upper hand corner of the epoxy header. The subcutaneous tissues were approximated using a running chromic suture and the skin was closed using leti. Dry dressing was applied. The patient was returned to recovery room in good condition. No apparent complications. Estimated blood loss approximately 50 mL. Postoperative upright portable chest x-ray showed good lead position with no pneumothorax. At this point, he will resume his PCU monitoring and his customary medications. He will receive an additional three doses of Ancef 1 gram IV every 8 hours. Followup PA and left lateral chest x-ray and EKG will be obtained in the morning. From the cardiac standpoint, his ultimate discharge will be determined by Dr. Dean, his primary ceo & founder.
[2017-01-24 05:55] LABS: MEAN CORPUSCULAR HGB CONC 30.9 g/dl (32.0-36.5); MEAN CORPUSCULAR VOLUME 90.7 fl (80.0-96.0); PLATELET COUNT, AUTOMATED 69 10^3/uL (150-450); WHITE BLOOD COUNT 4.5 10^3/uL (4.0-10.0)
[2017-01-24 06:05] LABS: ADD MANUAL DIFFER YES; DIFF SLIDE NUMBER 17; RED CELL DISTRIBUTION WIDTH 20.6 % (11.5-14.5)
[2017-01-24 06:22] LABS: CALCIUM LEVEL 8.6 MG/DL (8.8-10.2); CREATININE FOR GFR 1.25 MG/DL (0.70-1.30); GLOMERULAR FILTRATION RATE 58.7 (>35); POTASSIUM SERUM 3.7 MEQ/L (3.5-5.1)
[2017-01-24 07:12] LABS: BASOPHILS 1 % (0-4)
[2017-01-24 07:13] LABS: ANISOCYTOSIS 2+
--- NOTE | 2017-01-24 07:53 | IPN ---
DATE OF SERVICE: 01/24/2017 Mr. Martinez had a pacemaker placed yesterday evening by Dr. Galicia. Because there was a very busy OR day he did not get done until very late. Subsequently he had a "rough night." It appears that there was some mild agitation on the part of the patient and apparently he pulled off the dressing from the pacemaker. But overall this morning he feels actually surprisingly good. He does still complain about shortness of breath but he is alert and oriented and appropriate. He does not appear to be in any distress. He is sitting on his PCU bed. Vital signs this morning reveal blood pressure 141/63, heart rate has been 60s atrial fibrillation with ventricular pacing. He is afebrile and saturation is 98% on 2 liters of oxygen. Fluid balance yesterday was documented as negative 1200 mL. Weight is 108.9 kg which is about a kilogram down since yesterday. His JVP is still quite high. Lungs reveal end inspiratory crackles bilaterally at least one third of the lung correia. Heart exam reveals regular rhythm. There is widely splitting second heart sound. I do not appreciate any murmur. Abdomen is obese but soft. I do not appreciate shifting dullness and extremities about 1-2 + edema to his knees. Neurologically he is alert and oriented and appropriate. He appears to have generalized weakness but I do not appreciate any focal signs. LABORATORY: Basic metabolic panel: Potassium 3.7, BUN 46, creatinine 1.3 for GFR calculating 59 and glucose 134, ammonia level is 40. CBC reveals hemoglobin 8.1 , hematocrit 26 and platelet count 69,000. ASSESSMENT/PLAN: Mr. Martinez 81-year-old man who has multitude of medical problems and include coronary artery disease with remote history of coronary artery bypass grade (CABG), chronic atrial fibrillation, type 2 diabetes, liver cirrhosis and chronic diastolic congestive heart failure. He presented with bradycardic rate that did not resolve even after holding all AV eladio blocking agents for 48 hours. Consequently he received a single chamber pacemaker last night. He seemed to have tolerated the procedure well. At this point, he still remains grossly volume overloaded and I am going to give him additional doses of diuretics. I believe that now when his heart rate is better, he will actually have improved cardiac output and consequently the congestive heart failure should be easier to manage. As far as the atrial fibrillation is concerned, he is certainly not a candidate for anticoagulation due to underlying liver cirrhosis and thrombocytopenia. He has a history of anemia as well. I will continue following the patient with you. SOY
[2017-01-24] MEDS ORDERED: ceFAZolin SOD 1 GM in D5W MINI-BAG PLUS 50 ML IV SCH (08:00)
--- NOTE | 2017-01-24 08:11 | REP ---
Portable chest, 01:14 a.m., single AP view, the patient sitting, post pacemaker placement: Comparison is 01/21/2017. There is a single lead pacemaker entering from a left subclavian approach, not present previously, with the tip in satisfactory location in this single view. There are surgical clips adjacent to the pacemaker pack. Sternotomy wires are again noted. There is cardiomegaly, unchanged. There are bilateral interstitial infiltrates, unchanged. There is no pneumothorax or pleural fluid collection. Signed by Matt Amaro MD 01/24/2017 08:03 A
--- NOTE | 2017-01-24 08:17 | IPNPDOC ---
Subjective Date Seen The patient was seen on 01/24/17. Subjective Chief Complaint/HPI The patient is a 81-year-old male admitted with a reason for visit of Atrial Fibrillation With Slow Ventricular Response. General: Denies: Chills, Night Sweats Constitutional: Denies: Chills, Fever, Malaise, Night Sweats Eyes: Denies: Pain, Vision change ENT: Denies: Head Aches Skin: Denies: Rash, Lesions Pulmonary: Denies: Dyspnea, Cough Cardiovascular: Reports: Edema, Denies: Chest Pain, Palpitations, Orthopnea, Lt Headedness Gastrointestinal: Denies: Nausea, Vomiting, Abdominal Pain Musculoskeletal: Denies: Neck Pain Neurological: Reports: Weakness, Denies: Numbness Psych: Reports: Memory Issues, Denies: Mood Normal Objective Physical Examination General Exam: Positive: Alert, Cooperative, Mild Distress (pt.'s SOB has improved from one day prior) Eye Exam: Positive: PERRLA, Conjunctiva & lids normal, EOMI, Negative: Sclera icteric, Ptosis ENT Exam: Positive: Atraumatic, Mucous membr. moist/pink, Tongue Midline, Nares Patent Chest Exam: Positive: Clear to auscultation, Normal air movement, Other (end inspiratory crackles b/l, minimal have lessened), Negative: Rales, Rhonchi, Wheezing, Diminished Heart Exam: Positive: Rate Normal (rate in 60's overnight s/p pacemaker), Normal S1, Normal S2, Negative: Bradycardic (rates 40's) Telemetry: Positive: Atrial fibrillation Abdomen Exam: Positive: Normal bowel sounds, Soft, Negative: Tenderness, Hepatospenomegaly, Mass Extremity Exam: Positive: Edema (b/l LE +1), Negative: Clubbing, Cyanosis Skin Exam: Positive: Nl turgor and temperature, Negative: Rash, Breakdown, Lesion Neuro Exam: Positive: Normal Speech, Normal Tone, Sensation Intact, Cranial Nerves 3-12 NL, Negative: Strength at 5/5 X4 ext (strength b/l LE +3-4, preserved 5/5 upper extremities b/l) Psych Exam: Negative: Mental status NL, Memory Intact, Oriented x 3 (pt thinks [place]) Assessment /Plan Problems (1) Cognitive decline Status: Acute Response to Treatment: Stable Problem Text: ammonia decreased s/p lactulose therapy, mentation seems improved son is at bedside, states that his dad has some delirum this morning, thinking [place], will continue to monitor and try to re- orient pt.,apparently has had this in past hospitalizations w/resolution , suspect will improve on d/c cardiac marker x4 neg. EKG demonstrate no sign of ischemia heart rate now in 60's s/p one day pacemaker will c/w spirolactone and torsemide now afebrile, CXR showed Increased interstitial coarsening compatible with acute on chronic interstitial disease. white count 6.3 (2) A-fib Status: Chronic Response to Treatment: Stable Problem Text: a. fib hx., pt received pacemaker and rate in 60's overnight c/w avoid beta blockade medications-pt on bisoprolol at home hold anticoagulation in light of hx ulcer bleed s/p ligation pt takes home Digoxin, level .5 last check, will hold for now inr 1.26 cardiology consulted-greatly appreciate their recommendations-pt s/p one day pacemaker (3) Weakness Status: Acute Response to Treatment: Stable Problem Text: pt received pacemaker one day ago-weakness improved w/mentation, for symptomatic bradycardia ammonia decreased s/p lactulose therapy electrolytes WNL replete as necessary suspect could be 2/2 to also low Hg, pt is s/p blood transfusion-will hold any further transfusions, pt still a bit overload volume B12 WNL (4) Diastolic CHF Status: Acute Response to Treatment: Stable Problem Text: pt received lasix one day prior, will receive again this morning and pacemaker this afternoon, not complaining of SOB on PE pt BNP back at 3597 and edematous on PE +2 /l LE, received lasix this morning no SOB, lung exam showed end inspiratory crackles b/l strict I&O-2.6 L out one day ago pt intake is good, will avoid adding fluids or another transfusion of blood as pt is edematous and fluid overloaded fluid restriction once creatine normalizes x4 card marker neg EKG no sign for ischemic changes, slow. a. fib with rate in 40's continues today last echo 10/2014 EF 60% with LVH (5) Diabetes Status: Chronic Response to Treatment: Stable Problem Text: c/w sliding scale glucose - 134 today (6) MYRNA on CPAP Status: Acute Response to Treatment: Stable Problem Text: c/w O2 orders SOB improved as per pt 98 % on 2 L O2 (7) HTN (hypertension) Status: Chronic Response to Treatment: Stable Problem Text: 141/63 stable avoid beta blockade in light of bradycardia (8) Anemia Status: Acute Response to Treatment: Stable Problem Text: no active bleeding suspected h/h 8.1/26.2 will order iron studies pending, hx of abnormal iron labs as per son type and cross and s/p transfuse 1 unit PRBC-hold additional units as pt is volume overloaded (9) Diarrhea Status: Acute Response to Treatment: Stable Problem Text: pt states he is not currently having any more issues with diarrhea denied recent abx use GI panel pending pt has good oral intake, will not begin fluids- CHF hx. and fluid overload (10) CLIFF (acute kidney injury) Status: Acute Response to Treatment: Stable Problem Text: seems baseline creatine 1.19 today 1.25 do not suspect obstruction- renal u/s negative c/w avoid fluids right now due to CHF and clinical edema-pt has good oral intake continue to monitor, can c/w torsemide and spirolactone continued in light of CHF s/p pacemaker one day ago for sx bradycardia (11) Dyslipidemia Status: Chronic Problem Text: c/w home statin (12) DVT prophylaxis Status: Acute Response to Treatment: Stable Problem Text: scd teds lovenox Plan/VTE VTE Prophylaxis Ordered?: Yes Plan/Urinary Catheter Reason for insertion/continuin: Acute obstruct/retention VS, I&O, 24H, Fishbone Vital Signs/I&O Vital Signs Date Time Temp Pulse Resp B/P (MAP) Pulse Ox O2 Delivery O2 Flow Rate FiO2 01/24/17 05:29 97.5 60 18 141/63 (89) 98 Nasal Cannula 2.0 I&O- Last 24 Hours up to 6 AM 01/25/17 06:00 Intake Total 480 ml Balance 480 ml Laboratory Data 24H LABS Laboratory Tests 2 01/23/17 14:22: Bedside Glucose (Misc Panel) 177H 01/23/17 17:16: Bedside Glucose (Misc Panel) 146H 01/24/17 05:33: White Blood Count 4.5, Red Blood Count 2.89L, Hemoglobin 8.1L, Hematocrit 26.2L , Mean Corpuscular Volume 90.7, Mean Corpuscular Hemoglobin 28.0, Mean Corpuscular Hemoglobin Concent 30.9L, Red Cell Distribution Width 20.6H, Platelet Count 69L, Monocytes (%) (Auto) , Neutrophils 61, Lymphocytes (Manual) 21, Monocytes (Manual) 17H, Basophils (Manual) 1, Anisocytosis 2+, Platelet Estimate DECREASED, Anion Gap 9, Glomerular Filtration Rate 58.7, Blood Urea Nitrogen 46H, Creatinine 1.25, Sodium Level 138#, Potassium Level 3.7, Chloride Level 102, Carbon Dioxide Level 27, Calcium Level 8.6L, Ammonia 40H CBC/BMP Laboratory Tests 01/24/17 05:33 Red Blood Count 2.89 L, Mean Corpuscular Volume 90.7, Mean Corpuscular Hemoglobin 28.0, Mean Corpuscular Hemoglobin Concent 30.9 L, Red Cell Distribution Width 20.6 H, Monocytes (%) (Auto) , Calcium Level 8.6 L GME ATTESTATION GME ATTESTATION My preceptor for this patient encounter was physically present in the building during the encounter and was fully available. As needed, all aspects of the patient interview, examination, medical decision making process, and medical care plan development were reviewed and approved by the preceptor. Preceptor is aware and concurs with the plan as stated in the body of this note and will attest to such by his/her cosignature. TL JASMINE DO Jan 24, 2017 08:17
--- NOTE | 2017-01-24 08:56 | REP ---
Chest two views HISTORY: pacemaker insertion Comparison: 01/24/2017 An increase in interstitial markings is present in the lungs unchanged compared to the previous study. The cardiac silhouette is enlarged. The pulmonary vasculature is normal in appearance. The bony structure is intact. A cardiac pacemaker is present. IMPRESSION: 1. There is a diffuse increase in interstitial markings in the lungs unchanged compared to the previous study. This appears to represent to chronic interstitial change. 2. Cardiomegaly. Signed by Vaibhav Beltre MD 01/24/2017 08:49 A
[2017-01-24] MEDS: SUCRALFATE 1 GM TAB PO SCH ×4 (09:16→20:14)
[2017-01-24] MEDS: SPIRONOLACTONE 12.5MG PER 1/2 TABLET PO SCH (09:16)
[2017-01-24] MEDS: FUROSEMIDE 40 MG/4 ML VIAL (J1940) IV SCH ×2 (09:17→17:49)
[2017-01-24] MEDS: ENOXAPARIN 30 MG/0.3 ML SYR (J1650) SC SCH (09:17)
[2017-01-24] MEDS: VITAMIN B COMPLEX/VIT C CAP PO SCH (09:18)
[2017-01-24] MEDS: MULTIVITAMINS/MINERALS THERAP 1 TAB PO SCH (09:18)
[2017-01-24] MEDS: OMEPRAZOLE 20 MG CAP PO SCH ×2 (09:19→20:15)
[2017-01-24] MEDS: SENOKOT S TAB PO SCH (09:19)
[2017-01-24] MEDS: ALLOPURINOL 100 MG TAB PO SCH (09:19)
[2017-01-24] MEDS: GABAPENTIN 400 MG CAP PO SCH ×3 (09:19→20:15)
[2017-01-24] MEDS: FERROUS GLUCONATE 324 MG TAB PO SCH ×2 (09:20→20:15)
[2017-01-24] MEDS: COLCHICINE 0.6 MG TAB PO SCH (09:20)
[2017-01-24] MEDS: POTASSIUM CHLORIDE 10 MEQ SR TABLET PO SCH ×2 (09:20→20:15)
[2017-01-24] MEDS: ASPIRIN 81 MG ENTERIC TAB PO SCH (09:20)
[2017-01-24] MEDS: HumaLOG INSULIN (NovoLOG) PER UNIT SC SCH ×6 (10:38→20:25)
[2017-01-24] MEDS: LACTULOSE 20 GM/30 ML SYRUP UD PO SCH ×2 (13:06→20:14)
[2017-01-24] MEDS: SIMVASTATIN 40 MG TAB PO SCH (20:15)
--- NOTE | 2017-01-24 20:21 | IPN ---
DATE: 01/24/2017 PACEMAKER SERVICE PROGRESS NOTE SUBJECTIVE: The patient currently does not recall any of the events of his pacemaker implant earlier this morning. Claims not to be disturbed by incisional discomfort. Has been up out of bed without lightheadedness or dizziness. Unaware of his heart action. Currently denies shortness of breath. OBJECTIVE: Obese, elderly male laying comfortably with the head of the bed elevated 30 degrees. No pallor or cyanosis. Oxygen saturation 97% on supplemental oxygen by nasal prongs at 2 liters. Heart rate 60 bpm and regular with occasional irregularity. Blood pressure 139/60, respiratory rate 20. Afebrile. His weight is slightly less than yesterday with negative fluid balance yesterday. Normal oral moisture. Trachea midline. Increased anteroposterior chest diameter with well healing pacer incision. Some slight erythema but no discharge. transportation dispatch manager confirms appropriate VVI pacing and sensing. EKG earlier today shows underlying atrial fibrillation with appropriate VVI sensing and pacing with mostly paced QRS complexes having a leftward axis and left bundle branch block configuration. No change from earlier this morning. PA and left lateral chest x-ray was requested but only an AP semiupright lateral study was performed in light of his mental status. This was reviewed independently and shows at least mild cardiomegaly even allowing for his portable technique. Normal thoracic aorta, slightly prominent proximal pulmonary vessels, stable right ventricular pacing lead with pulse generator left subclavian region. No pneumothorax. Complete pacemaker interrogation was performed today showing intracardiac electrograms, R wave amplitude of greater than 12.0 mV. Ventricular pacing threshold was 0.375 volts at 0.4 milliseconds, auto capture function was activated. Current pacemaker settings VVIR with base rate 60, but hysteresis rate 50 bpm. Max rate 110 with rate response. Estimated battery voltage longevity greater than 5 years. IMPRESSION/PLAN: 1. AV block (unspecified) / single chamber pacemaker in situ: As mentioned his incision is healing properly, lead position is stable and he has excellent intracardiac electrograms and pacing threshold. We were able to activate auto capture function in order to prolong battery longevity. He has been given a tentative office followup appointment for wound check and staple removal in 7-10 days' time. We have requested that he perform only light activities of daily living with his left arm and avoid getting his incision wet until his leti are removed. He has also been encouraged contact us promptly for any abnormal erythema, swelling or discharge. 2. Atrial fibrillation. He is currently not receiving oral anticoagulation because of his marked anemia. Hemoglobin today is stable at 8.1.
[2017-01-25] VITALS: BP 138/60
[2017-01-25] MEDS: ACETAMINOPHEN TAB 650MG DOSE (2X325MG) PO PRN ×2 (00:36→17:42)
[2017-01-25] MEDS ORDERED: CEFAZOLIN 500 MG IM ONE ×2 (01:30→02:30)
[2017-01-25 04:00] VITALS: BP 156/69
[2017-01-25] MEDS: LACTULOSE 20 GM/30 ML SYRUP UD PO SCH ×3 (05:34→21:10)
[2017-01-25 07:12] LABS: MEAN CORPUSCULAR HEMOGLOBIN 28.4 pg (27.0-33.0); MEAN CORPUSCULAR HGB CONC 30.7 g/dl (32.0-36.5); MEAN CORPUSCULAR VOLUME 92.6 fl (80.0-96.0); PLATELET COUNT, AUTOMATED 73 10^3/uL (150-450)
[2017-01-25 07:14] LABS: ADD MANUAL DIFFER YES; DIFF SLIDE NUMBER 16; RED CELL DISTRIBUTION WIDTH 20.3 % (11.5-14.5)
[2017-01-25 07:16] LABS: ANION GAP 9 MEQ/L (8-16); BLOOD UREA NITROGEN 27 MG/DL (7-18); CALCIUM LEVEL 8.7 MG/DL (8.8-10.2); CARBON DIOXIDE LEVEL 27 MEQ/L (21-32); CHLORIDE LEVEL 103 MEQ/L (98-107); CREATININE FOR GFR 1.08 MG/DL (0.70-1.30); GLOMERULAR FILTRATION RATE > 60.0 (>35); GLUCOSE, FASTING 166 MG/DL (83-110); POTASSIUM SERUM 3.5 MEQ/L (3.5-5.1); SODIUM LEVEL 139 MEQ/L (136-145)
[2017-01-25 08:00] VITALS: BP 170/68
--- NOTE | 2017-01-25 08:00 | IPN ---
DATE: 01/25/2017 Mr. Martinez remains about the same. He still complains about dyspnea, but was able to sleep. He had some mild confusion but this morning looks well oriented. He does not know the date but that is understandable. Denies any chest discomfort. Blood pressure from 130s to 150s. He is afebrile. Saturation is 100% on 2 liters of oxygen by nasal cannula. His fluid balance yesterday was documented about 800 mL negative. He had 2600 mL urine output. Weight is 107.4, which is down from yesterday. His jugular venous pulse (JVP) is still very high. Lungs though are fairly clear to auscultation even though there are some expiratory wheezes. I do not appreciate any rhonchi or crackles today. Heart exam reveals regular rhythm. No murmur. Abdomen is still protuberant but soft. I am still unable to elicit shifting dullness. There is still about 1, possibly 2+ peripheral edema to his knees. Laboratory leonardo, basic metabolic panel reveals potassium 3.5, BUN 27, creatinine 1.1 for GFR more than 60, calcium is 8.7. Ammonia level is down to 35 and CBC reveals hemoglobin 8.4, WBC count 4 and platelet count 73,000. ASSESSMENT AND PLAN: Mr. 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 He presented with confusion and fluid retention in the setting of significant bradycardia. Because his heart rate did not improve even after 48 hours of holding all AV eladio blocking agents, pacemaker was implanted by Dr. Galicia. It is now little more than 24 hours and I believe that there has been improvement in his condition. He unfortunately remains quite volume overloaded and I am going to increase the dose of furosemide to every 6 hours. Otherwise, I would continue current medications. He has minimal ventricular ectopy. Even though there was 5 beat run of nonsustained ventricular tachycardia (VT) and because of underlying coronary artery disease, I am going to put him on beta-nya. It is beneficial for him even on account of his liver cirrhosis. I do expect that he will stay in hospital for at least 2 or 3 more days because he is far from being euvolemic.
[2017-01-25 08:03] LABS: EOSINOPHILS 4 % (0-5)
--- NOTE | 2017-01-25 08:34 | IPNPDOC ---
Subjective Date Seen The patient was seen on 01/25/17. Subjective Chief Complaint/HPI The patient is a 81-year-old male admitted with a reason for visit of Atrial Fibrillation With Slow Ventricular Response. General: Denies: Chills, Night Sweats Constitutional: Denies: Chills, Fever Eyes: Denies: Pain, Vision change Pulmonary: Denies: Dyspnea, Cough Cardiovascular: Denies: Chest Pain, Palpitations, Orthopnea Gastrointestinal: Denies: Nausea, Vomiting Neurological: Denies: Weakness, Numbness Psych: Reports: Memory Issues, Denies: Mood Normal Objective Physical Examination General Exam: Positive: Alert, Cooperative, Negative: Mild Distress (pt.'s SOB has improved from one day prior) Eye Exam: Positive: PERRLA, Conjunctiva & lids normal, EOMI, Negative: Sclera icteric, Ptosis ENT Exam: Positive: Atraumatic, Mucous membr. moist/pink, Tongue Midline, Nares Patent Chest Exam: Positive: Clear to auscultation, Normal air movement, Other (end exp crackles b/l bases and RUL), Negative: Rales, Rhonchi, Wheezing, Diminished Heart Exam: Positive: Rate Normal (rate again in 60's overnight s/p pacemaker) , Normal S1, Normal S2, Negative: Bradycardic (rates 40's) Telemetry: Positive: Atrial fibrillation Abdomen Exam: Positive: Normal bowel sounds, Soft, Negative: Tenderness, Hepatospenomegaly, Mass Extremity Exam: Positive: Edema (b/l LE +1), Negative: Clubbing, Cyanosis Skin Exam: Positive: Nl turgor and temperature, Negative: Rash, Breakdown, Lesion Neuro Exam: Positive: Normal Speech, Normal Tone, Sensation Intact, Cranial Nerves 3-12 NL, Negative: Strength at 5/5 X4 ext (strength b/l LE +3-4, preserved 5/5 upper extremities b/l) Psych Exam: Negative: Mental status NL, Memory Intact, Oriented x 3 (pt fails to know he is in hospital) Assessment /Plan Problems (1) Cognitive decline Status: Acute Response to Treatment: Stable Problem Text: 40 one day prior to today 35- ammonia decreased s/p lactulose therapy, mentation seems improved will c/w therapy son is at bedside, states that his dad's deilrium is improving improved today-the pt knows this morning he is in [facility] in [place], the president is Lew as per pt. will continue to monitor and try to re-orient pt.,apparently has had this in past hospitalizations w/resolution , suspect will improve on d/c cardiac marker x4 neg. spoke to PFS who stated pt has bed hold at his [facility], they will relay this msg to son as he was questioning if his dad still had a spot reserved EKG demonstrate no sign of ischemia heart rate still in 60's s/p pacemaker placement two days prior (2) A-fib Status: Chronic Response to Treatment: Stable Problem Text: a. fib hx., pt received pacemaker and rate again in 60's overnight hold anticoagulation in light of hx ulcer bleed s/p ligation pt takes home Digoxin, level .5 last check, will hold for now inr 1.26 cardiology consulted-greatly appreciate their recommendations-pt s/p two days prior pacemaker placed, have begun beta nya therapy Bisoprolol and increased furosemide to q6h, net neg. 2.6 L (3) Weakness Status: Acute Response to Treatment: Stable Problem Text: pt received pacemaker two days ago-weakness has improved ammonia continues to decrease-c/w lactulose therapy (4) Diastolic CHF Status: Acute Response to Treatment: Stable Problem Text: pt furosemide increased to q6h as per Cardio. recommendations which we appreciate, not complaining of SOB on PE no SOB, lung exam still shows end inspiratory crackles b/l strict I&O-2.6 L out one day ago pt intake is good, will avoid adding fluids or another transfusion of blood as pt is edematous and fluid overloaded fluid restriction once creatine normalizes x4 card marker neg EKG no sign for ischemic changes, slow. a. fib with rate in 40's continues today last echo 10/2014 EF 60% with LVH (5) Diabetes Status: Chronic Response to Treatment: Stable Problem Text: c/w sliding scale glucose - 166 today (6) MYRNA on CPAP Status: Acute Response to Treatment: Stable Problem Text: c/w O2 orders SOB improved as per pt 96 % on 2 L O2 (7) HTN (hypertension) Status: Chronic Response to Treatment: Stable Problem Text: 170/68 stable have begun beta blockade, pts HR now in 60's s/p pacemaker placement (8) Anemia Status: Acute Response to Treatment: Stable Problem Text: no active bleeding suspected h/h 8.4/27.4 pt has hx of abnormal iron labs as per son, haptoglobin increased type and cross and s/p transfuse 1 unit PRBC-hold additional units as pt is volume overloaded p. smear showed Pancytopenia with relative and absolute monocytosis. A few immature myeloid cells/myelocytes are also noted. Poikilocytosis is slightly increased. Hematology oncology consult will be helpful in further work up, after the patients acute illness is over, to rule out primary bone marrow etiology for this pancytopenia. Will recommend heme/onc f/u after d/c. (9) Diarrhea Status: Acute Response to Treatment: Stable Problem Text: c/w lactulose, ammonia levels decreasing pt has good oral intake, will not begin fluids- CHF hx. and fluid overload (10) CLIFF (acute kidney injury) Status: Acute Response to Treatment: Stable Problem Text: seems baseline creatine 1.19 today 1.08 do not suspect obstruction- renal u/s negative c/w avoid fluids right now due to CHF and clinical edema-pt has good oral intake continue to monitor, pts furosemide increased to q6h as per cardio recommendations s/p pacemaker two days ago for sx bradycardia, HR responding well, 60's rate. (11) Dyslipidemia Status: Chronic Problem Text: c/w home statin (12) Congestion of nasal sinus Status: Acute Response to Treatment: Stable Problem Text: admitted to some nasal congestion would like a nasal spray begin flonase for pt (13) DVT prophylaxis Status: Acute Response to Treatment: Stable Problem Text: scd teds lovenox Plan/VTE VTE Prophylaxis Ordered?: Yes Plan/Urinary Catheter Reason for insertion/continuin: Acute obstruct/retention VS, I&O, 24H, Fishbone Vital Signs/I&O Vital Signs Date Time Temp Pulse Resp B/P (MAP) Pulse Ox O2 Delivery O2 Flow Rate FiO2 01/25/17 08:00 96.7 60 18 170/68 (102) 96 Nasal Cannula 2.0 I&O- Last 24 Hours up to 6 AM 01/26/17 06:00 Intake Total 440 ml Output Total 400 ml Balance 40 ml Laboratory Data 24H LABS Laboratory Tests 2 01/24/17 11:49: Bedside Glucose (Misc Panel) 203H 01/24/17 16:42: Bedside Glucose (Misc Panel) 155H 01/24/17 20:25: Bedside Glucose (Misc Panel) 173H 01/25/17 06:32: Neutrophils 52, Lymphocytes (Manual) 40, Monocytes (Manual) 4, Eosinophils ( Manual) 4, Red Blood Cell Morphology NORMAL, Platelet Estimate DECREASED, Anion Gap 9, Glomerular Filtration Rate > 60.0, Blood Urea Nitrogen 27H, Creatinine 1.08, Sodium Level 139, Potassium Level 3.5, Chloride Level 103, Carbon Dioxide Level 27, Calcium Level 8.7L, Ammonia 35H CBC/BMP Laboratory Tests 01/25/17 06:32 Red Blood Count 2.96 L, Mean Corpuscular Volume 92.6, Mean Corpuscular Hemoglobin 28.4, Mean Corpuscular Hemoglobin Concent 30.7 L, Red Cell Distribution Width 20.3 H, Calcium Level 8.7 L GME ATTESTATION GME ATTESTATION My preceptor for this patient encounter was physically present in the building during the encounter and was fully available. As needed, all aspects of the patient interview, examination, medical decision making process, and medical care plan development were reviewed and approved by the preceptor. Preceptor is aware and concurs with the plan as stated in the body of this note and will attest to such by his/her cosignature. TL JASMINE DO Jan 25, 2017 08:34
[2017-01-25] MEDS: FUROSEMIDE 40 MG/4 ML VIAL (J1940) IV SCH ×3 (08:43→17:31)
[2017-01-25] MEDS: COLCHICINE 0.6 MG TAB PO SCH (08:44)
[2017-01-25] MEDS: SUCRALFATE 1 GM TAB PO SCH ×4 (08:44→21:10)
[2017-01-25] MEDS: VITAMIN B COMPLEX/VIT C CAP PO SCH (08:44)
[2017-01-25] MEDS: HumaLOG INSULIN (NovoLOG) PER UNIT SC SCH ×4 (08:44→21:00)
[2017-01-25] MEDS: POTASSIUM CHLORIDE 10 MEQ SR TABLET PO SCH ×2 (08:45→21:11)
[2017-01-25] MEDS: SPIRONOLACTONE 12.5MG PER 1/2 TABLET PO SCH (08:45)
[2017-01-25] MEDS: OMEPRAZOLE 20 MG CAP PO SCH ×2 (08:45→21:11)
[2017-01-25] MEDS: SENOKOT S TAB PO SCH (08:45)
[2017-01-25] MEDS: ASPIRIN 81 MG ENTERIC TAB PO SCH (08:45)
[2017-01-25] MEDS: FERROUS GLUCONATE 324 MG TAB PO SCH ×2 (08:45→21:11)
[2017-01-25] MEDS: ALLOPURINOL 100 MG TAB PO SCH (08:45)
[2017-01-25] MEDS: ENOXAPARIN 30 MG/0.3 ML SYR (J1650) SC SCH (08:46)
[2017-01-25] MEDS: GABAPENTIN 400 MG CAP PO SCH ×3 (08:46→21:10)
[2017-01-25] MEDS: MULTIVITAMINS/MINERALS THERAP 1 TAB PO SCH (08:46)
[2017-01-25] MEDS: BISOPROLOL FUMARATE 5 MG TAB PO SCH (08:47)
[2017-01-25 12:00] VITALS: BP_SYST 148; BP_SYST 150; BP_SYST 157; BP_DIAS 60; BP_DIAS 62; BP_DIAS 71
[2017-01-25] MEDS: FLUTICASONE PROP 0.05% NASAL SPRAY 16 GM (FLONASE) SCH ×2 (12:32→21:11)
[2017-01-25 15:30] VITALS: BP 160/58
[2017-01-25 18:40] VITALS: BP_SYST 156; BP_SYST 160; BP_DIAS 66; BP_DIAS 68; BP_DIAS 72
[2017-01-25] MEDS: SIMVASTATIN 40 MG TAB PO SCH (21:11)
--- NOTE | 2017-01-25 23:02 | ECGEPIP ---
Stationary ECG Study [facility] Test Date: 2017-01-24 Pat Name: CHELI FLEMING Department: Room: [place] [address] Gender: M Pharmacy Data Analyst: MIRZA : 1935 Requested By: Cheli Galicia Order Number: [id number] Reading MD: Eric Mendez Measurements Intervals [place] Rate: 67 P: SC: 0 QRS: -63 QRSD: 193 T: 101 QT: 520 QTc: 551 Interpretive Statements ELECTRONIC VENTRICULAR PACEMAKER ABNORMAL RHYTHM ECG Last tracing on 01/24/2017 at 1:04:32, no significant changes. Patient has underlying atrial fibrillation Electronically Signed On 01-25-2017 23:02:28 EDT by Eric Mendez
--- NOTE | 2017-01-25 23:02 | ECGEPIP ---
Stationary ECG Study [facility] Test Date: 2017-01-24 Pat Name: CHELI FLEMING Department: Room: [place] [address] Gender: M Coding Compliance Specialist: : [id number] Requested By: Cheli Galicia Order Number: [id number] Reading MD: Eric Mendez Measurements Intervals [place] Rate: 62 P: GA: 0 QRS: -68 QRSD: 182 T: 104 QT: 499 QTc: 508 Interpretive Statements ELECTRONIC VENTRICULAR PACEMAKER ABNORMAL RHYTHM ECG Compared to prior tracing in the system, pacemaker activity is new Electronically Signed On 01-25-2017 23:01:42 EDT by Eric Mendez
[2017-01-26] VITALS (9 sets, daily range): BP systolic 120–162; BP diastolic 56–84
[2017-01-26] MEDS: FUROSEMIDE 40 MG/4 ML VIAL (J1940) IV SCH ×6 (00:25→22:21)
[2017-01-26] MEDS: ACETAMINOPHEN TAB 650MG DOSE (2X325MG) PO PRN ×2 (04:51→22:20)
[2017-01-26] MEDS: LACTULOSE 20 GM/30 ML SYRUP UD PO SCH ×3 (05:48→22:17)
[2017-01-26 06:44] LABS: BASO % 0.3 % (0.0-1.0); EOS # 0.1 10^3/uL (0.0-0.50); EOS % 3.1 % (0.0-3.0); IMMATURE GRANULOCYTE % 1.1 % (0-0); LYMPH # 0.8 10^3/uL (1.5-4.5); LYMPH % 22.4 % (24.0-44.0); MEAN CORPUSCULAR HEMOGLOBIN 28.3 pg (27.0-33.0); MEAN CORPUSCULAR HGB CONC 30.2 g/dl (32.0-36.5); MEAN CORPUSCULAR VOLUME 93.7 fl (80.0-96.0); NEUTROPHILS # 1.6 10^3/uL (1.8-7.7); NEUTROPHILS % 45.1 % (36.0-66.0); PLATELET COUNT, AUTOMATED 74 10^3/uL (150-450); WHITE BLOOD COUNT 3.6 10^3/uL (4.0-10.0)
[2017-01-26 06:47] LABS: ADD MORPHOLOGY? YES; RED CELL DISTRIBUTION WIDTH 21.1 % (11.5-14.5)
[2017-01-26 06:59] LABS: ANION GAP 9 MEQ/L (8-16); BLOOD UREA NITROGEN 22 MG/DL (7-18); CALCIUM LEVEL 8.9 MG/DL (8.8-10.2); CARBON DIOXIDE LEVEL 27 MEQ/L (21-32); CHLORIDE LEVEL 102 MEQ/L (98-107); CREATININE FOR GFR 1.02 MG/DL (0.70-1.30); GLOMERULAR FILTRATION RATE > 60.0 (>35); GLUCOSE, FASTING 156 MG/DL (83-110); POTASSIUM SERUM 3.9 MEQ/L (3.5-5.1); SODIUM LEVEL 138 MEQ/L (136-145)
[2017-01-26 07:53] LABS: ANISOCYTOSIS 3+; TEAR DROP CELLS 2+
[2017-01-26 07:54] LABS: POIKILOCYTOSIS 1+
[2017-01-26] MEDS ORDERED: SPIRONOLACTONE 25 MG TAB PO SCH (09:00)
[2017-01-26] MEDS: FLUTICASONE PROP 0.05% NASAL SPRAY 16 GM (FLONASE) SCH ×2 (09:25→22:21)
[2017-01-26] MEDS: HumaLOG INSULIN (NovoLOG) PER UNIT SC SCH ×4 (09:26→21:00)
[2017-01-26] MEDS: ENOXAPARIN 30 MG/0.3 ML SYR (J1650) SC SCH (09:26)
[2017-01-26] MEDS: SPIRONOLACTONE 12.5MG PER 1/2 TABLET PO SCH (09:27)
[2017-01-26] MEDS: OMEPRAZOLE 20 MG CAP PO SCH ×2 (09:27→22:20)
[2017-01-26] MEDS: VITAMIN B COMPLEX/VIT C CAP PO SCH (09:27)
[2017-01-26] MEDS: GABAPENTIN 400 MG CAP PO SCH ×2 (09:27→22:19)
[2017-01-26] MEDS: COLCHICINE 0.6 MG TAB PO SCH (09:27)
[2017-01-26] MEDS: SUCRALFATE 1 GM TAB PO SCH ×4 (09:27→22:23)
[2017-01-26] MEDS: BISOPROLOL FUMARATE 5 MG TAB PO SCH (09:28)
[2017-01-26] MEDS: ALLOPURINOL 100 MG TAB PO SCH (09:28)
[2017-01-26] MEDS: SENOKOT S TAB PO SCH (09:28)
[2017-01-26] MEDS: POTASSIUM CHLORIDE 10 MEQ SR TABLET PO SCH ×2 (09:29→22:20)
[2017-01-26] MEDS: MULTIVITAMINS/MINERALS THERAP 1 TAB PO SCH (09:29)
[2017-01-26] MEDS: ASPIRIN 81 MG ENTERIC TAB PO SCH (09:29)
[2017-01-26] MEDS: FERROUS GLUCONATE 324 MG TAB PO SCH ×2 (09:29→22:18)
--- NOTE | 2017-01-26 10:26 | IPN ---
CARDIOLOGY PROGRESS NOTE DATE AND TIME OF SERVICE: 01/26/2017 at 9:35 a.m. SUBJECTIVE: The patient reports mild exertional dyspnea when ambulating short distances in the hallway. No dizziness or lightheadedness. No palpitations. No chest pain or chest discomfort. PHYSICAL EXAMINATION: A pleasant obese man who appears his chronologic age, not in any respiratory or psychologic distress. Wearing oxygen 2 liters per minute by nasal cannula. Temperature 97.0, pulse 65 (regular), respiratory rate 18, blood pressure (BP) 144/68, oxygen (O2) saturation 97% on oxygen (O2) 2 liters per minute by nasal cannula. Input and output for the 24 hours of 01/25/2017 showed net negative 190 mL. Weight today 108.2 kg. Jugular venous pulsations were to the angle of the jaw with the patient sitting up (at least 20 cm). 1 cm pitting edema was present in both legs at mid and distal tibial level. Respiratory expansion effort was fair. No crackles or wheezes. Midline sternal scar present. First heart sound decreased. Second heart sound paradoxical. No S3 appreciated. No murmurs appreciated. Abdomen was soft and nontender with normal bowel sounds. Normal mood and affect. LABORATORY WORK: 01/26/2017 was reviewed. Sodium 138, potassium 3.9, chloride 102, CO2 27, BUN 22, creatinine 1.02, estimated GFR greater than 60, glucose 156, calcium 8.9 (normal), hemoglobin 8.9, hematocrit 23.5, platelets 74. ASSESSMENT AND PLAN: 1. Persistent atrial fibrillation (chronic). The patient is currently predominantly ventricular paced with what appears to be a base rate of 60 beats per minute (BPM). Asymptomatic. Currently, maintained on aspirin, bisoprolol 5 mg daily, Lovenox 30 mg subcutaneous daily. I am concerned about the patient's thrombocytopenia and anemia. I believe the hazards of aspirin outweigh the benefits at this point because of advanced liver disease with thrombocytopenia and anemia. He is already on Lovenox. I think it would be reasonable to discontinue the aspirin. Aspirin has very little protective effect for cardioembolic events with atrial fibrillation. 2. Diastolic heart failure (acute on chronic). The patient did not have a strong net negative output for the past 24 hours. He is currently on bisoprolol 5 mg daily, furosemide 40 mg intravenous (IV) every 6 hours, spironolactone 12.5 mg daily. He is also on potassium chloride 10 mEq twice a day. I will increase the dosage of spironolactone to 25 mg daily. I will increase furosemide to 40 mg IV every 4 hours. Contributing to the patient's tendency towards fluid retention includes chronic kidney disease and gabapentin. I shall do a small dose reduction in the dosage of gabapentin. 3. Coronary artery disease (CAD) ([place] vessel) without angina. Currently, maintained on aspirin 81 mg daily, Lovenox 30 mg subcutaneous daily, bisoprolol 5 mg daily, simvastatin 40 mg nightly. As noted above, I will discontinue aspirin because of advanced liver disease with anemia and thrombocytopenia. 4. Second-degree high-grade AV block. Status post pacemaker in situ (appears to be VVI 60. Stable. 5. Status post [employer] single-chamber pacemaker in situ. Stable. 6. Status post coronary artery bypass graft (CABG). As per CAD category above. 7. Systemic hypertension. Recent blood pressure readings indicate mostly uncontrolled systemic hypertension. He is fluid overloaded. I believe his blood pressure will improve as he is progressively diuresed. Continue bisoprolol for now. As noted above, I will increase the dosage of IV furosemide and the dose of spironolactone.
--- NOTE | 2017-01-26 11:04 | IPNPDOC ---
Subjective Date Seen The patient was seen on 01/26/17. Subjective Chief Complaint/HPI The patient is a 81-year-old male admitted with a reason for visit of Atrial Fibrillation With Slow Ventricular Response. General: Reports: Normal Appetite, Denies: Chills, Night Sweats, Fatigue Constitutional: Denies: Chills, Fever Eyes: Denies: Pain, Vision change ENT: Reports: Sinus Congestion, Denies: Head Aches Pulmonary: Denies: Dyspnea, Cough Cardiovascular: Denies: Chest Pain, Palpitations, Orthopnea Gastrointestinal: Denies: Nausea, Vomiting, Abdominal Pain, Diarrhea, Constipation Genitourinary: Denies: Dysuria, Frequency Hematologic: Denies: Bruising Neurological: Denies: Weakness Psych: Reports: Mood Normal, Memory Issues Objective Physical Examination General Exam: Positive: Alert, Cooperative, Negative: Mild Distress (pt.'s SOB has improved from one day prior) Eye Exam: Positive: PERRLA, Conjunctiva & lids normal, EOMI, Negative: Sclera icteric, Ptosis ENT Exam: Positive: Atraumatic, Mucous membr. moist/pink, Tongue Midline, Nares Patent Chest Exam: Positive: Clear to auscultation, Normal air movement, Other (end exp crackles b/l bases and RUL), Negative: Rales, Rhonchi, Wheezing, Diminished Heart Exam: Positive: Rate Normal (rate again in 60's overnight s/p pacemaker) , Normal S1, Normal S2, Negative: Bradycardic (rates 40's) Telemetry: Positive: Atrial fibrillation Abdomen Exam: Positive: Normal bowel sounds, Soft, Negative: Tenderness, Hepatospenomegaly, Mass Extremity Exam: Positive: Edema (b/l LE +1), Negative: Clubbing, Cyanosis Skin Exam: Positive: Nl turgor and temperature, Negative: Rash, Breakdown, Lesion Neuro Exam: Positive: Normal Speech, Normal Tone, Sensation Intact, Cranial Nerves 3-12 NL, Negative: Strength at 5/5 X4 ext (strength b/l LE +3-4, preserved 5/5 upper extremities b/l) Psych Exam: Negative: Mental status NL, Memory Intact, Oriented x 3 (pt states he is in [facility] in [facility]) Assessment /Plan Problems (1) Cognitive decline Status: Acute Response to Treatment: Stable Problem Text: 35 one day prior, now 44- ammonia initially decreased s/p lactulose therapy, pt has had 2x BM, one this AM and one one day prior, not loose, formed. mentation seems improved will c/w therapy, if pt. ammonia increasing tomorrow, can consider increasing lactulose tx., mentation is improving son is at bedside, states that his dad's delirium is still improving and pretty much at baseline improved today-the pt knows this morning he is in [facility] in [place], the president is Lew as per pt. will continue to monitor and try to re-orient pt.,apparently has had this in past hospitalizations w/resolution , suspect will improve on d/c cardiac marker x4 neg. spoke to PFS who stated pt has bed hold at his snf, they will relay this msg to son as he was questioning if his dad still had a spot reserved EKG demonstrate no sign of ischemia heart rate still in 60's s/p pacemaker placement two days prior (2) A-fib Status: Chronic Response to Treatment: Stable Problem Text: hx of a. fib, pt received pacemaker and rate again in 60's overnight c/w hold anticoagulation in light of hx ulcer bleed s/p ligation pt takes home Digoxin, level .5 last check, will hold for now INR 1.26 last check cardiology consulted-greatly appreciate their recommendations-pt s/p three days prior pacemaker placed c/w beta nya therapy-Bisoprolol and increased furosemide to q4h, net neg. 1650 mL, spirnolactone 25 daily (3) Weakness Status: Acute Response to Treatment: Stable Problem Text: Pt. received pacemaker three days ago-weakness has improved Ammonia continues to increase to 44 from 35, mentation has improved, pt. knows he is in [place], [place] but thinks the hospital is [facility], knows the president is Benjamin, son at bedside states his mentation is improving and almost at baseline. Will continue to monitor ammonia, if has increased tomorrow can consider increasing lactulose therapy. Pt has had 2 BM in past 24 hours, solid. (4) Diastolic CHF Status: Acute Response to Treatment: Stable Problem Text: pt furosemide increased to q4h as per Cardio. recommendations which we appreciate, not complaining of SOB on PE, c/w spirnolactone and bisporplol no SOB, lung exam still shows end inspiratory crackles b/l, mostly lower bases strict I&O-1.650 mL out one day ago pt intake is good, will avoid adding fluids or another transfusion of blood as pt is edematous and fluid overloaded fluid restriction 1800cc x4 card marker neg EKG no sign for ischemic changes, rate now in 60's s/p pacemaker placement. last echo 10/2014 EF 60% with LVH (5) Diabetes Status: Chronic Response to Treatment: Stable Problem Text: c/w sliding scale glucose - 156 today (6) MYRNA on CPAP Status: Acute Response to Treatment: Stable Problem Text: c/w O2 orders SOB improved as per pt 97 % on 2 L O2 (7) HTN (hypertension) Status: Chronic Response to Treatment: Stable Problem Text: 144/68 stable c/w beta blockade, pt's HR now in 60's s/p pacemaker placement furosemide q6h and c/w spirnolactone -cardiology recommendations appreciated, consulted (8) Anemia Status: Acute Response to Treatment: Stable Problem Text: no active bleeding suspected stable h/h 3.6/3.15 pt has hx of abnormal iron labs as per son, haptoglobin increased type and cross and s/p transfuse 1 unit PRBC-hold additional units as pt is volume overloaded p. smear showed Pancytopenia with relative and absolute monocytosis. A few immature myeloid cells/myelocytes are also noted. Poikilocytosis is slightly increased. Hematology oncology consult will be helpful in further work up, after the patients acute illness is over, to rule out primary bone marrow etiology for this pancytopenia. Will recommend heme/onc f/u after d/c. (9) Diarrhea Status: Acute Response to Treatment: Stable Problem Text: 2 solid BM in past 24 hours c/w lactulose, ammonia levels increased, but per son and on physical exam mentation has improved. will monitor, if increased can consider increasing lactulose therapy tomorrow pt has good oral intake, will not begin fluids- CHF hx. and fluid overload (10) CLIFF (acute kidney injury) Status: Acute Response to Treatment: Stable Problem Text: Cr today 1.02 do not suspect obstruction- renal u/s negative c/w avoid fluids right now due to CHF and clinical edema-pt has good oral intake continue to monitor, pts furosemide increased to q4h as per cardio recommendations, c/w spirnolactone and bisoprolol s/p pacemaker three days ago for sx bradycardia, HR responding well, 60's rate. (11) Dyslipidemia Status: Chronic Problem Text: c/w home statin (12) Congestion of nasal sinus Status: Acute Response to Treatment: Stable Problem Text: pt is still a bit congested today, states nasal spray helped a bit c/w flonase for pt (13) DVT prophylaxis Status: Acute Response to Treatment: Stable Problem Text: scd teds lovenox Plan/VTE VTE Prophylaxis Ordered?: Yes Plan/Urinary Catheter Reason for insertion/continuin: Acute obstruct/retention VS, I&O, 24H, Fishbone Vital Signs/I&O Vital Signs Date Time Temp Pulse Resp B/P (MAP) Pulse Ox O2 Delivery O2 Flow Rate FiO2 01/26/17 09:28 144/68 01/26/17 07:58 Nasal Cannula 2.0 01/26/17 07:43 97.0 65 18 97 I&O- Last 24 Hours up to 6 AM 01/27/17 06:00 Intake Total 240 ml Balance 240 ml Laboratory Data 24H LABS Laboratory Tests 2 01/25/17 12:12: Bedside Glucose (Misc Panel) 188H 01/25/17 16:39: Bedside Glucose (Misc Panel) 168H 01/25/17 22:32: Bedside Glucose (Misc Panel) 189H 01/26/17 06:05: Immature Granulocyte % (Auto) 1.1H, White Blood Count 3.6L, Red Blood Count 3.15L, Hemoglobin 8.9L, Hematocrit 29.5L, Mean Corpuscular Volume 93.7, Mean Corpuscular Hemoglobin 28.3, Mean Corpuscular Hemoglobin Concent 30.2L, Red Cell Distribution Width 21.1H, Platelet Count 74L, Neutrophils (%) (Auto) 45.1, Lymphocytes (%) (Auto) 22.4L, Monocytes (%) (Auto) 28.0H, Eosinophils (%) (Auto ) 3.1H, Basophils (%) (Auto) 0.3, Neutrophils # (Auto) 1.6L, Lymphocytes # (Auto ) 0.8L, Monocytes # (Auto) 1.0H, Eosinophils # (Auto) 0.1, Basophils # (Auto) 0.0, Immature Granulocyte # (Auto) 0.0, Nucleated Red Blood Cells % (auto) 0.8H , Platelet Estimate DECREASED, Poikilocytosis 1+, Anisocytosis 3+, Tear Drop Cells 2+, Anion Gap 9, Glomerular Filtration Rate > 60.0, Blood Urea Nitrogen 22H, Creatinine 1.02, Sodium Level 138, Potassium Level 3.9, Chloride Level 102 , Carbon Dioxide Level 27, Calcium Level 8.9, Ammonia 44H CBC/BMP Laboratory Tests 01/26/17 06:05 Red Blood Count 3.15 L, Mean Corpuscular Volume 93.7, Mean Corpuscular Hemoglobin 28.3, Mean Corpuscular Hemoglobin Concent 30.2 L, Red Cell Distribution Width 21.1 H, Neutrophils (%) (Auto) 45.1, Lymphocytes (%) (Auto) 22.4 L, Monocytes (%) (Auto) 28.0 H, Eosinophils (%) (Auto) 3.1 H, Basophils (% ) (Auto) 0.3, Neutrophils # (Auto) 1.6 L, Lymphocytes # (Auto) 0.8 L, Monocytes # (Auto) 1.0 H, Eosinophils # (Auto) 0.1, Basophils # (Auto) 0.0, Calcium Level 8.9 GME ATTESTATION GME ATTESTATION My preceptor for this patient encounter was physically present in the building during the encounter and was fully available. As needed, all aspects of the patient interview, examination, medical decision making process, and medical care plan development were reviewed and approved by the preceptor. Preceptor is aware and concurs with the plan as stated in the body of this note and will attest to such by his/her cosignature. TL JASMINE DO Jan 26, 2017 11:02
[2017-01-26] MEDS ORDERED: GABAPENTIN 300 MG CAP PO SCH ×2 (16:00)
[2017-01-26] MEDS ORDERED: GABAPENTIN 100 MG CAP PO SCH (21:00)
[2017-01-26] MEDS: CARVedilol 6.25 MG TAB PO SCH (22:19)
[2017-01-26] MEDS: GABAPENTIN 100 MG CAP PO SCH (22:19)
[2017-01-26] MEDS: SIMVASTATIN 40 MG TAB PO SCH (22:23)
[2017-01-27] VITALS (7 sets, daily range): BP systolic 123–166; BP diastolic 53–75
[2017-01-27] MEDS: FUROSEMIDE 40 MG/4 ML VIAL (J1940) IV SCH ×6 (02:48→22:37)
[2017-01-27 05:58] LABS: MEAN CORPUSCULAR HEMOGLOBIN 28.3 pg (27.0-33.0); MEAN CORPUSCULAR HGB CONC 30.2 g/dl (32.0-36.5); MEAN CORPUSCULAR VOLUME 93.7 fl (80.0-96.0); PLATELET COUNT, AUTOMATED 64 10^3/uL (150-450)
[2017-01-27 06:05] LABS: RED CELL DISTRIBUTION WIDTH 20.4 % (11.5-14.5)
[2017-01-27] MEDS: LACTULOSE 20 GM/30 ML SYRUP UD PO SCH ×3 (06:10→22:36)
[2017-01-27 06:19] LABS: ALBUMIN 3.1 GM/DL (3.2-5.2); ALBUMIN/GLOBULIN RATIO 1.15 (1.00-1.93); ALKALINE PHOSPHATASE 135 U/L (45-117); ALT/SGPT 26 U/L (12-78); ANION GAP 5 MEQ/L (8-16); AST/SGOT 23 U/L (15-37); BILIRUBIN,TOTAL 0.6 MG/DL (0.2-1.0); BLOOD UREA NITROGEN 17 MG/DL (7-18); CALCIUM LEVEL 8.6 MG/DL (8.8-10.2); CARBON DIOXIDE LEVEL 34 MEQ/L (21-32); CHLORIDE LEVEL 101 MEQ/L (98-107); CREATININE FOR GFR 1.01 MG/DL (0.70-1.30); GLOMERULAR FILTRATION RATE > 60.0 (>35); GLUCOSE, FASTING 174 MG/DL (83-110); MAGNESIUM LEVEL 1.7 MG/DL (1.8-2.4); POTASSIUM SERUM 3.3 MEQ/L (3.5-5.1); SODIUM LEVEL 140 MEQ/L (136-145); TOTAL PROTEIN 5.8 GM/DL (6.4-8.2)
[2017-01-27] MEDS ORDERED: MAGNESIUM OXIDE 400 MG TAB (MAG-OX) PO ONE (08:00)
[2017-01-27] MEDS ORDERED: POTASSIUM CHLORIDE 10 MEQ SR TABLET PO ONE (08:00)
[2017-01-27] MEDS: OMEPRAZOLE 20 MG CAP PO SCH (08:10)
[2017-01-27] MEDS: ALLOPURINOL 100 MG TAB PO SCH (08:10)
[2017-01-27] MEDS: HumaLOG INSULIN (NovoLOG) PER UNIT SC SCH ×4 (08:10→21:00)
[2017-01-27] MEDS: COLCHICINE 0.6 MG TAB PO SCH (08:11)
[2017-01-27] MEDS: SUCRALFATE 1 GM TAB PO SCH ×4 (08:11→22:37)
[2017-01-27] MEDS: FLUTICASONE PROP 0.05% NASAL SPRAY 16 GM (FLONASE) SCH ×2 (08:12→22:40)
[2017-01-27] MEDS: VITAMIN B COMPLEX/VIT C CAP PO SCH (08:12)
[2017-01-27] MEDS: CARVedilol 6.25 MG TAB PO SCH ×2 (08:12→22:39)
[2017-01-27] MEDS: FERROUS GLUCONATE 324 MG TAB PO SCH ×2 (08:12→22:38)
[2017-01-27] MEDS: MULTIVITAMINS/MINERALS THERAP 1 TAB PO SCH (08:12)
[2017-01-27] MEDS: POTASSIUM CHLORIDE 10 MEQ SR TABLET PO SCH ×2 (08:12→22:38)
[2017-01-27] MEDS: aMILoride 5 MG TAB PO SCH (08:14)
[2017-01-27] MEDS: ENOXAPARIN 30 MG/0.3 ML SYR (J1650) SC SCH (08:14)
[2017-01-27] MEDS: GABAPENTIN 100 MG CAP PO SCH ×3 (08:15→22:39)
[2017-01-27] MEDS: GABAPENTIN 400 MG CAP PO SCH ×3 (08:19→22:38)
[2017-01-27] MEDS: SENOKOT S TAB PO SCH (09:00)
[2017-01-27] MEDS: TOUJEO (PATIENT'S OWN MED) SQ SCH (09:00)
[2017-01-27] MEDS: MAGNESIUM CHLORIDE 64 MG TABCR (SLO MAG) PO SCH ×2 (12:11→22:37)
[2017-01-27] MEDS: LISINOPRIL *2.5 MG* TAB PO SCH (12:11)
[2017-01-27] MEDS: POLYVINYL ALCOHOL OPHTH SOLN 15 ML(LIQUITEARS) OU PRN ×2 (15:55→18:57)
--- NOTE | 2017-01-27 19:55 | IPN ---
DATE: 01/27/2017 SUBJECTIVE: Patient is seen and examined in the room today. Patient still has confusion, not oriented at all. Per nursing staff, patient has been having multiple urinary incontinence. Therefore, the measured total output may not be accurate. OBJECTIVE: VITAL SIGNS: Temperature 97, pulse 70, respiratory rate 20, blood pressure 148/69, pulse oximetry 100% with 2 liters nasal cannula. GENERAL: No sign of acute distress. Patient is not oriented. CARDIOVASCULAR: Positive S1, S2. Pacemaker in place. Rate in satisfactory range. RESPIRATORY: Positive crackles bilaterally, mainly in the lower base. No wheezes. ABDOMEN: Soft, nontender, nondistended. Bowel sounds present. EXTREMITIES: Mild pitting edema bilaterally. LABORATORY DATA: WBC 3, hemoglobin 8.1, hematocrit 26.8, platelet count 64. Sodium 140, potassium 3.3, chloride 101, carbon dioxide 34, BUN 17, creatinine 1.01, GFR greater than 60, fasting glucose 174, calcium 8.6, magnesium 1.7, total bilirubin 0.6, AST 23, ALT 26, alkaline phosphatase 135, ammonia level 18, albumin 3.1, total protein 5.8. ASSESSMENT AND PLAN: 1. Atrial fibrillation. Previously, patient was hospitalized for persistent bradycardia. Patient has a pacemaker by Dr. Galicia. Continue to monitor on telemetry. Medication is being adjusted by the contractor [employer]. 2. Diastolic congestive heart failure exacerbation. Patient is being diuresed with Lasix and spironolactone. Continue to monitor intake and output, however will be very cautious regarding interpreting the net balance because patient has had multiple urinary incontinence and that fluid loss was not documented on the medical record. 3. Diabetes. On sliding scale and on consistent carbohydrate diet. 4. Altered mental status changes. Patient continues to have waxing and waning mental status changes, most likely multifactorial. Previously, patient had an elevated ammonia level. Patient has been receiving lactulose. Today the ammonia level is in normal range and I have been discussing the case with patient's multiple sons and patient does have a history of mental status changes during physical stress. Patient is still disoriented, however is able to follow some commands and answer most of the questions. Per son, the mentation is much better than the degree of confusion the patient had during the admission. 5. Obstructive sleep apnea (MYRNA). On continuous positive airway pressure (CPAP). 6. Hypertension. Continue to monitor. 7. Pancytopenia. Peripheral smear was obtained. Patient showed a few immature myeloid cells. Patient may benefit from hematology/oncology outpatient followup. 8. History of diarrhea, resolved. 9. Acute kidney injury, resolved since 01/25/2017. 10. Deep venous thrombosis (DVT) prophylaxis. On thromboembolism deterrents (TEDs) and sequential compression device. 11. Dyslipidemia. On statin.
[2017-01-27] MEDS: SIMVASTATIN 40 MG TAB PO SCH (22:38)
[2017-01-27] MEDS: FAMOTIDINE 20 MG TAB PO SCH (22:39)
[2017-01-28] MEDS: FUROSEMIDE 40 MG/4 ML VIAL (J1940) IV SCH ×6 (02:16→21:20)
[2017-01-28 04:00] VITALS: BP 121/56
[2017-01-28 06:08] LABS: MEAN CORPUSCULAR HEMOGLOBIN 28.3 pg (27.0-33.0); MEAN CORPUSCULAR HGB CONC 29.9 g/dl (32.0-36.5); MEAN CORPUSCULAR VOLUME 94.5 fl (80.0-96.0); PLATELET COUNT, AUTOMATED 68 10^3/uL (150-450); RED CELL DISTRIBUTION WIDTH 20.4 % (11.5-14.5); WHITE BLOOD COUNT 3.3 10^3/uL (4.0-10.0)
[2017-01-28] MEDS: LACTULOSE 20 GM/30 ML SYRUP UD PO SCH ×3 (06:11→21:21)
[2017-01-28 06:45] LABS: ANION GAP 6 MEQ/L (8-16); BLOOD UREA NITROGEN 16 MG/DL (7-18); CALCIUM LEVEL 8.9 MG/DL (8.8-10.2); CARBON DIOXIDE LEVEL 30 MEQ/L (21-32); CHLORIDE LEVEL 103 MEQ/L (98-107); CREATININE FOR GFR 0.94 MG/DL (0.70-1.30); GLOMERULAR FILTRATION RATE > 60.0 (>35); GLUCOSE, FASTING 184 MG/DL (83-110); SODIUM LEVEL 139 MEQ/L (136-145)
[2017-01-28 08:00] VITALS: BP_SYST 121; BP_SYST 139; BP_DIAS 59; BP_DIAS 65; BP_DIAS 66
--- NOTE | 2017-01-28 08:49 | IPN ---
DATE: 01/28/2017 Mr. Martinez is feeling better. He was able to sleep for most of the night. He is now able to walk with a walker definitely in the room but he also did some ambulation on telemetry. Denies any chest pain, shortness of breath is improving. VITAL SIGNS: Blood pressure 121/56, heart rate has been mostly in 60s. He is afebrile. Saturations 92-95% on room air. His fluid balance yesterday was about a liter negative. Weight is documented 103.8 kg. His jugular venous pressure is only minimally visible over the clavicle in sitting position. Lungs are clear to auscultation bilaterally. Heart exam with regular rhythm. No gallop was appreciated. Abdomen is obese but soft. There is minimal peripheral edema. Neurologically, he is intact. LABORATORY: Hemoglobin 9.2, hematocrit 27.4, platelet count 68,000. Basic metabolic panel is normal. Ammonia was 53 this morning. ASSESSMENT AND PLAN: Mr. Martinez is an 81-year-old man who has a history of remote coronary artery bypass graft (CABG), together with known atrial fibrillation, chronic diastolic congestive heart failure and liver cirrhosis. He came with altered mental status and fluid retention, was very bradycardic. When the bradycardia did not resolve with 2 days of holding AV eladio blocking agents, he received a dual chamber pacemaker. Since the procedure, he has been improving and we are being aggressive with the diuretics. It seems to be getting better. I believe that one more day of IV diuretics is called for. Unless there are some unforeseen circumstances, I believe the patient will be ready for discharge tomorrow.
[2017-01-28] MEDS: TOUJEO (PATIENT'S OWN MED) SQ SCH (09:00)
[2017-01-28] MEDS: MAGNESIUM CHLORIDE 64 MG TABCR (SLO MAG) PO SCH ×2 (09:47→20:23)
[2017-01-28] MEDS: COLCHICINE 0.6 MG TAB PO SCH (09:47)
[2017-01-28] MEDS: ALLOPURINOL 100 MG TAB PO SCH (09:47)
[2017-01-28] MEDS: aMILoride 5 MG TAB PO SCH (09:47)
[2017-01-28] MEDS: SUCRALFATE 1 GM TAB PO SCH ×4 (09:47→20:22)
[2017-01-28] MEDS: VITAMIN B COMPLEX/VIT C CAP PO SCH (09:48)
[2017-01-28] MEDS: GABAPENTIN 100 MG CAP PO SCH ×3 (09:48→20:22)
[2017-01-28] MEDS: LISINOPRIL *2.5 MG* TAB PO SCH (09:48)
[2017-01-28] MEDS: GABAPENTIN 400 MG CAP PO SCH ×3 (09:48→20:23)
[2017-01-28] MEDS: CARVedilol 6.25 MG TAB PO SCH ×2 (09:48→20:22)
[2017-01-28] MEDS: MULTIVITAMINS/MINERALS THERAP 1 TAB PO SCH (09:48)
[2017-01-28] MEDS: SENOKOT S TAB PO SCH (09:48)
[2017-01-28] MEDS: FERROUS GLUCONATE 324 MG TAB PO SCH ×2 (09:49→20:23)
[2017-01-28] MEDS: POTASSIUM CHLORIDE 10 MEQ SR TABLET PO SCH ×2 (09:49→20:23)
[2017-01-28] MEDS: HumaLOG INSULIN (NovoLOG) PER UNIT SC SCH ×4 (09:50→20:24)
[2017-01-28] MEDS: FLUTICASONE PROP 0.05% NASAL SPRAY 16 GM (FLONASE) SCH ×2 (09:50→20:23)
[2017-01-28 12:00] VITALS: BP 116/58
[2017-01-28] MEDS ORDERED: SLF 3 ML SYR IV PRN (13:00)
[2017-01-28] MEDS: SLF 3 ML SYR IV SCH ×2 (14:52→21:21)
[2017-01-28 16:00] VITALS: BP_SYST 120; BP_SYST 125; BP_SYST 135; BP_DIAS 57; BP_DIAS 58
--- NOTE | 2017-01-28 17:40 | IPN ---
DATE: 01/28/2017 SUBJECTIVE: Patient is seen and examined in the room today. Patient is alert and awake, but patient is not fully oriented. Patient's son is also present in the room. Patient stated this is [facility], this is year 1918, the president is President Hackett. OBJECTIVE: VITAL SIGNS: Temperature 97.8, pulse 71, respiration rate 20, blood pressure supine is 135/58, sitting is 120/57, standing is 122/58. GENERAL: No sign of acute distress. Patient is alert and awake, patient is not oriented. HEENT: Normocephalic, atraumatic. Extraocular motors grossly intact. CARDIOVASCULAR: Positive S1, S2, pacemaker in place, rate in satisfactory range. RESPIRATORY: Positive crackles bilaterally, mainly in lower base, no wheezes. ABDOMEN: Soft, nontender, nondistended. Bowel sounds present. No rebound. No guarding. EXTREMITIES: Mild edema bilaterally. LABORATORY DATA: WBC 3.3, hemoglobin 8.2, hematocrit 27.4, platelet count 68. Sodium 139, potassium 4.0, chloride 103, carbon dioxide 30, BUN 16, creatinine 0.94, GFR greater than 60, fasting glucose 184, calcium 8.9, ammonia level is 53. ASSESSMENT AND PLAN: 1. Atrial fibrillation. Patient presented with persistent bradycardia and had a pacemaker placed by Dr. Galicia. Patient's heart rate medication is being also adjusted by the auto rental clerk, we appreciate Dr. Dean's assistance. 2. Diastolic congestive heart failure exacerbation. Patient has been diuresed with Lasix and spironolactone. Patient has good urinary output. Patient has been maintaining good intake and output balance. Previously, there was occurrence of frequent urinary incontinence, therefore urinary output could not be measured accurately. The issue has resolved. Per Dr. Dean's recommendations, patient requires more diuresis in the next 24 hours. 3. Diabetes, on sliding scale and consistent carbohydrate diet. 4. Altered mental status changes. Patient continues having waxing and waning mental status changes, most likely multifactorial. Patient today has a recurrence of elevated ammonia level and patient has physical stress from the current medical condition. Multiple discussions have happened with the patient's multiple sons and they all feel patient's mentation is not at baseline at this moment. 5. Obstructive sleep apnea (MYRNA), on continuous positive airway pressure (CPAP). 6. Hypertension. Continue to monitor. 7. Pancytopenia. Peripheral smear was obtained. Patient shows a few immature myeloid cells. Patient may benefit from hematology/oncology outpatient followup. 8. History of diarrhea, resolved. 9. Acute kidney injury (CLIFF), resolved. 10. Dyslipidemia, on statin. 11. Deep venous thrombosis (DVT) prophylaxis, on thromboembolism deterrents (TEDs) and sequential compression device.
[2017-01-28 20:00] VITALS: BP 133/60
[2017-01-28] MEDS: FAMOTIDINE 20 MG TAB PO SCH (20:23)
[2017-01-28] MEDS: SIMVASTATIN 40 MG TAB PO SCH (20:23)
[2017-01-28] MEDS: NYSTATIN 100,000 UNITS/GM TOPICAL PWD 15 GM TOP SCH (22:18)
[2017-01-28 23:59] VITALS: BP 115/57
[2017-01-29] MEDS: FUROSEMIDE 40 MG/4 ML VIAL (J1940) IV SCH ×2 (02:53→05:08)
[2017-01-29 04:00] VITALS: BP 142/62
[2017-01-29] MEDS: SLF 3 ML SYR IV SCH (05:08)
[2017-01-29] MEDS: LACTULOSE 20 GM/30 ML SYRUP UD PO SCH (05:08)
[2017-01-29 06:36] LABS: MEAN CORPUSCULAR HEMOGLOBIN 28.9 pg (27.0-33.0); MEAN CORPUSCULAR HGB CONC 30.6 g/dl (32.0-36.5); MEAN CORPUSCULAR VOLUME 94.3 fl (80.0-96.0); WHITE BLOOD COUNT 3.3 10^3/uL (4.0-10.0)
[2017-01-29 06:37] LABS: RED CELL DISTRIBUTION WIDTH 20.3 % (11.5-14.5)
[2017-01-29 06:42] LABS: ANION GAP 7 MEQ/L (8-16); BLOOD UREA NITROGEN 18 MG/DL (7-18); CALCIUM LEVEL 9.4 MG/DL (8.8-10.2); CARBON DIOXIDE LEVEL 31 MEQ/L (21-32); CHLORIDE LEVEL 100 MEQ/L (98-107); CREATININE FOR GFR 1.04 MG/DL (0.70-1.30); GLOMERULAR FILTRATION RATE > 60.0 (>35); GLUCOSE, FASTING 214 MG/DL (83-110); SODIUM LEVEL 138 MEQ/L (136-145)
[2017-01-29 08:00] VITALS: BP_SYST 130; BP_SYST 133; BP_SYST 136; BP_DIAS 60; BP_DIAS 64; BP_DIAS 69
[2017-01-29 08:07] VITALS: BP 133/60
[2017-01-29] MEDS: VITAMIN B COMPLEX/VIT C CAP PO SCH (08:07)
[2017-01-29] MEDS: LISINOPRIL *2.5 MG* TAB PO SCH (08:07)
[2017-01-29] MEDS: aMILoride 5 MG TAB PO SCH (08:07)
[2017-01-29] MEDS: COLCHICINE 0.6 MG TAB PO SCH (08:07)
[2017-01-29] MEDS: GABAPENTIN 400 MG CAP PO SCH (08:08)
[2017-01-29] MEDS: ALLOPURINOL 100 MG TAB PO SCH (08:08)
[2017-01-29] MEDS: CARVedilol 6.25 MG TAB PO SCH (08:08)
[2017-01-29] MEDS: HumaLOG INSULIN (NovoLOG) PER UNIT SC SCH (08:08)
[2017-01-29] MEDS: GABAPENTIN 100 MG CAP PO SCH (08:08)
[2017-01-29] MEDS: FERROUS GLUCONATE 324 MG TAB PO SCH (08:08)
[2017-01-29] MEDS: MAGNESIUM CHLORIDE 64 MG TABCR (SLO MAG) PO SCH (08:09)
[2017-01-29] MEDS: SUCRALFATE 1 GM TAB PO SCH (08:09)
[2017-01-29] MEDS: FLUTICASONE PROP 0.05% NASAL SPRAY 16 GM (FLONASE) SCH (08:09)
[2017-01-29] MEDS: MULTIVITAMINS/MINERALS THERAP 1 TAB PO SCH (08:09)
[2017-01-29] MEDS: SENOKOT S TAB PO SCH (08:09)
[2017-01-29] MEDS: POTASSIUM CHLORIDE 10 MEQ SR TABLET PO SCH (08:09)
[2017-01-29] MEDS: NYSTATIN 100,000 UNITS/GM TOPICAL PWD 15 GM TOP SCH (08:10)
[2017-01-29] MEDS ORDERED: CARV6.25 PO (09:01)
[2017-01-29] MEDS ORDERED: TORS20TA2 PO (09:02)
[2017-01-29] MEDS ORDERED: GABA-283 PO (09:05)
[2017-01-29] MEDS ORDERED: AMIL5TA PO (09:13)
[2017-01-29] MEDS ORDERED: SLOWTAB2 PO (09:13)
[2017-01-29] MEDS ORDERED: LACT10SO3 PO (09:13)
[2017-01-29] MEDS ORDERED: LISI2.5T3 PO (09:13)
--- NOTE | 2017-01-29 09:13 | IPN ---
DATE: 01/29/2017 Mr. Bearden had a good night. He is feeling much better this morning. He was able to ambulate by his own to the restroom and back. He would very like to go home. VITAL SIGNS: Blood pressure 142/62. Heart rate has been in 60s and 70s. He is atrial fibrillation with on-demand ventricular pacing. Saturation is 97% on room air. His fluid balance yesterday was approximately 1200 mL negative. He is again negative about liter already today. His weight is down to 102 kg. His JVP does not appear elevated even though it is somewhat difficult to assess. Lungs are clear to auscultation with good air movement. Heart exam reveals irregular rhythm. There is widely splitting second heart sound. I do not appreciate any gallop or rub. Abdomen is soft, nontender. He still has about 1+ peripheral edema, markedly improved since admission. Neurologically, there is generalized weakness, but he is alert and oriented and appropriate. Laboratory-leonardo, he has normal CBC, but for glucose 214. Ammonia level was 48, and CBC reveals hemoglobin 9.1, hematocrit 29, and platelet count 71,000. ASSESSMENT/PLAN: Mr. Bearden is an 81-year-old man who has coronary artery disease with remote history of coronary artery bypass surgery, chronic atrial fibrillation, chronic diastolic congestive heart failure, and liver cirrhosis. He presented with congestive heart failure and very prominent bradycardia. I initially was hoping that just holding his AV eladio blocking agents will be sufficient to increase his heart rate but when that did not occur after a full 2 days without any AV eladio blocking agents, a pacemaker was implanted. He otherwise has been diuresed. There were some subtle changes in his medications. Dr. Avalos replaced bisoprolol by carvedilol 6.25 mg twice a day, introduced low dose of LUDWIN inhibitor. So far, he has been tolerating these medications well. I believe that he is indeed ready to go home or to assisted living facility. I think that we can leave his discharge medications as they are, but instead of intravenous (IV) furosemide, I would discharge him on 40 mg of torsemide daily. I will arrange for outpatient followup next week.
--- NOTE | 2017-01-29 21:43 | DSES ---
DATE OF ADMISSION: 01/21/2017 DATE OF DISCHARGE: 01/29/2017 Patient is discharge to [facility]. CONSULTANTS DURING THIS ADMISSION: Dr. Fan Dean. PRIMARY DISCHARGE DIAGNOSES: 1. Congestive heart failure. 2. Chronic diastolic dysfunction, acute exacerbation. Liver cirrhosis with hepatic encephalopathy with elevated ammonia level. 4. Bradycardia requiring pacemaker placement. 5. Atrial fibrillation with persistent bradycardia, requiring pacemaker. 6. Type 2 diabetes. 7. Acute metabolic encephalopathy, multifactorial, secondary to hepatic encephalopathy and congestive heart failure as well as significant bradycardia with atrial fibrillation with slow ventricular response. 8. Obstructive sleep apnea, on chronic continuous positive airway pressure. 9. Hypertension. 10. Pancytopenia. Will need outpatient referral to hematology/oncology for bone marrow biopsy. 11. History of diarrhea. 12. Acute kidney injury. 13. Dyslipidemia. DISCHARGE MEDICATIONS: - amiloride 5 mg daily - Coreg 6.25 twice a day - gabapentin 400 mg three times a day - lactulose 30 every 8 hours. Discontinue for more than three bowel movements daily. - lisinopril 2.5 mg daily - magnesium chloride one tablet twice a day - torsemide 20 mg daily - acetaminophen 650 every 4 as needed - allopurinol 200 daily - aspirin 81 daily - vitamin B complex one tablet daily - Biotin by mouth twice a day as needed - bisacodyl 10 mg as needed - colchicine 0.6 daily - fish oil one capsule daily - ferrous sulfate 324 twice a day - Lispro. Hold for glucose less than 100. - milk of magnesia 30 mL daily as needed - multivitamin one tablet daily - Prilosec 40 twice a day - potassium 10 mEq twice a day - simvastatin 40 at bedtime - Carafate 1 gram four times a day DISCHARGE INSTRUCTIONS: 1. Repeat basic metabolic panel on 01/31/2017. Call or fax Dr. Dean regarding congestive heart failure and recent acute kidney injury, hyperkalemia. 2. Pancytopenia. Patient will need a referral to hematology/oncology within the next 1-2 weeks for bone marrow biopsy regarding significant pancytopenia. Rule out myelodysplastic syndrome. 3. Hepatic encephalopathy with elevated ammonia level. 4. History of liver cirrhosis. Patient will have to have his lactulose adjusted according to his volume status as outpatient, to be discontinued. This patient appears dehydrated with acute kidney injury. HOSPITAL COURSE: This is an 81-year-old male admitted on 01/21/2017 with known history of chronic atrial fibrillation for years on chronic digoxin and bisoprolol, history of chronic diastolic heart failure, ischemic heart disease, presented to the emergency room with acute metabolic encephalopathy with increasing lower extremity edema. He was found to be bradycardic with atrial fibrillation, ventricular rate of 40 and 36. He was found to have severe anemia requiring 1 unit red blood cell transfusion with resultant increase in hemoglobin from admission of 7.9-9.2. Remained stable at 8.2-9.1. Peripheral blood smear shows poikilocytosis slightly increased. Once acute illness is over, patient to rule out bone marrow etiology for pancytopenia as outpatient. Patient was admitted for significant bradycardia. Required a pacemaker placement by Dr. Galicia on 01/24/2017. Patient was treated for congestive heart failure with intravenous Lasix. Has been net negative with a peak weight of 108.9 kg and discharge weight of 102.1 kg. Patient had elevated ammonia level, peak ammonia level of 53. Responded well to lactulose with improvement in mental status. His gabapentin was decreased. Patient passed a home safety evaluation and discharged to [facility]. LABORATORIES ON DISCHARGE: White count 3.3, hemoglobin 9.1, hematocrit 29, platelet count 71. Sodium 138, potassium 4, chloride 100, bicarbonate 31, BUN 18, creatinine 1, glucose 214. Ammonia of 48. Folate more than 24. B12 of 459. TIME SPENT ON DISCHARGE: 30 minutes.
[2017-02-06 12:39] LABS: IMMATURE PLATELET FRACTION % 5.8 % (0.0-10.9)
[2017-02-06 13:13] LABS: IMMATURE PLATELET FRACTION % 7.8 % (0.0-10.9)
[2017-02-10 13:18] LABS: IMMATURE PLATELET FRACTION % 6.2 % (0.0-10.9); PLATELET F 70
[2017-02-23 10:42] LABS: IMMATURE PLATELET FRACTION % 6.1 % (0.0-10.9)
== END 2017-01-29 10:15 | DRG 242 ==
LOC: M ED 11:39 → M ED INP 13:36 → M PCU 17:49
PROVIDERS: ADMIT General Practice; ATTEND General Practice
PROC: 30233N1 Transfusion of Nonautologous Red Blood Cells into Peripheral Vein, Percutaneous Approach (ICD-10-PCS; 2017-01-21)
PROC: 0JH604Z Insertion of Pacemaker, Single Chamber into Chest Subcutaneous Tissue and Fascia, Open Approach (ICD-10-PCS; principal; 2017-01-24)
PROC: 02HK3JZ Insertion of Pacemaker Lead into Right Ventricle, Percutaneous Approach (ICD-10-PCS; 2017-01-24)
DX: I44.1 Atrioventricular block, second degree (principal); G93.41 Metabolic encephalopathy; I50.33 Acute on chronic diastolic (congestive) heart failure; D61.818 Other pancytopenia; N17.9 Acute kidney failure, unspecified; I48.2 Chronic atrial fibrillation; E78.5 Hyperlipidemia, unspecified; Z66 Do not resuscitate; E11.9 Type 2 diabetes mellitus without complications; G47.33 Obstructive sleep apnea (adult) (pediatric); K70.30 Alcoholic cirrhosis of liver without ascites; K72.90 Hepatic failure, unspecified without coma; I11.9 Hypertensive heart disease without heart failure; Z79.899 Other long term (current) drug therapy; Z79.82 Long term (current) use of aspirin; I25.10 Atherosclerotic heart disease of native coronary artery without angina pectoris; Z79.4 Long term (current) use of insulin; Z88.8 Allergy status to other drugs, medicaments and biological substances; Z87.891 Personal history of nicotine dependence; Z95.2 Presence of prosthetic heart valve; R19.7 Diarrhea, unspecified; E66.9 Obesity, unspecified; L40.8 Other psoriasis

== ENCOUNTER → 2017-01-21 | Outpatient (REF) | payer MEDICARE, OTHER ==
[2017-01-21 11:58] LABS: MEAN CORPUSCULAR HEMOGLOBIN 27.7 pg (27.0-33.0); MEAN CORPUSCULAR VOLUME 92.4 fl (80.0-96.0); WHITE BLOOD COUNT 8.3 10^3/uL (4.0-10.0)
[2017-01-21 12:04] LABS: RED CELL DISTRIBUTION WIDTH 21.8 % (11.5-14.5)
[2017-01-21 12:46] LABS: CALCIUM LEVEL 8.8 MG/DL (8.8-10.2); CREATININE FOR GFR 2.17 MG/DL (0.70-1.30); GLOMERULAR FILTRATION RATE 31.1 (>35)
== END ==
PROVIDERS: ATTEND Internal Medicine
DX: R06.00 Dyspnea, unspecified (principal)

== ENCOUNTER → 2017-02-13 | Outpatient (REF) ==
[~2017-02-13] MED LIST changes: +ACET1TAB17 PO; +AMIL5TA PO; +ASPI81TA24 PO; +BIOTLIQ9 SSP; +BISA10SU4 PR; +CARV6.25 PO; -DIGOXIN 0.0625MG PER 1/2TABLET PO SCH; +ENEMENE16 PR; +FISH5CAP PO; +GABA800T PO; +LACT10SO3 PO; +LISI2.5T3 PO; +METF-415 PO; +MILKSUS PO; +POTA10CA PO; +SENN8.6T7 PO; +SLOWTAB2 PO; +SUCR1TAB56 PO
[2017-02-13 11:16] LABS: MEAN CORPUSCULAR HEMOGLOBIN 30.1 pg (27.0-33.0); MEAN CORPUSCULAR HGB CONC 31.3 g/dl (32.0-36.5); MEAN CORPUSCULAR VOLUME 96.1 fl (80.0-96.0); WHITE BLOOD COUNT 6.2 10^3/uL (4.0-10.0)
[2017-02-13 11:45] LABS: RED CELL DISTRIBUTION WIDTH 20.3 % (11.5-14.5)
[2017-02-13 12:35] LABS: CREATININE FOR GFR 1.33 MG/DL (0.70-1.30); GLOMERULAR FILTRATION RATE 54.7 (>35); POTASSIUM SERUM 5.1 MEQ/L (3.5-5.1)
== END ==
PROVIDERS: ATTEND Internal Medicine
DX: D64.9 Anemia, unspecified (principal); N18.9 Chronic kidney disease, unspecified

== ENCOUNTER → 2017-02-21 | Outpatient (REF) | payer MEDICARE, OTHER, MEDICAID ==
[2017-02-21 10:10] LABS: MEAN CORPUSCULAR HEMOGLOBIN 30.3 pg (27.0-33.0); MEAN CORPUSCULAR HGB CONC 31.6 g/dl (32.0-36.5); RED CELL DISTRIBUTION WIDTH 18.6 % (11.5-14.5); WHITE BLOOD COUNT 4.7 10^3/uL (4.0-10.0)
[2017-02-21 10:17] LABS: PLATELET COUNT, AUTOMATED 86 10^3/uL (150-450)
[2017-02-21 10:18] LABS: IMMATURE PLATELET FRACTION % 10.4 % (0.0-10.9)
[2017-02-21 10:39] LABS: ANION GAP 11 MEQ/L (8-16); BLOOD UREA NITROGEN 21 MG/DL (7-18); CALCIUM LEVEL 8.9 MG/DL (8.8-10.2); CARBON DIOXIDE LEVEL 22 MEQ/L (21-32); CHLORIDE LEVEL 100 MEQ/L (98-107); CREATININE FOR GFR 1.06 MG/DL (0.70-1.30); GLOMERULAR FILTRATION RATE > 60.0 (>35); GLUCOSE, FASTING 232 MG/DL (83-110); SODIUM LEVEL 133 MEQ/L (136-145)
== END ==
PROVIDERS: ATTEND Internal Medicine
DX: D64.9 Anemia, unspecified (principal); R41.82 Altered mental status, unspecified

== ENCOUNTER → 2017-04-02 | Outpatient (REF) | payer MEDICARE, OTHER, MEDICAID ==
[2017-04-02 11:22] LABS: MEAN CORPUSCULAR HEMOGLOBIN 30.6 pg (27.0-33.0); MEAN CORPUSCULAR HGB CONC 31.3 g/dl (32.0-36.5); MEAN CORPUSCULAR VOLUME 97.9 fl (80.0-96.0); RED CELL DISTRIBUTION WIDTH 16.4 % (11.5-14.5); WHITE BLOOD COUNT 2.8 10^3/uL (4.0-10.0)
[2017-04-02 11:29] LABS: IMMATURE PLATELET FRACTION % 10.4 % (0.0-10.9); PLATELET COUNT, AUTOMATED 76 10^3/uL (150-450)
[2017-04-02 11:56] LABS: PERCENT SATURATION 8.9 % (19.7-50.0)
== END ==
PROVIDERS: ATTEND Internal Medicine
DX: D64.9 Anemia, unspecified (principal); K74.60 Unspecified cirrhosis of liver

== ENCOUNTER → 2017-04-15 | Outpatient (REF) | payer MEDICARE, OTHER, MEDICAID | PROVIDERS: ATTEND Internal Medicine | DX: R41.82 Altered mental status, unspecified (principal) ==

== ENCOUNTER → 2017-05-01 | Outpatient (REF) | payer MEDICARE, OTHER, MEDICAID ==
[2017-04-30 14:37] LABS: AMMONIA 108 uMOL/L (<32)
[2017-04-30 14:46] LABS: ALBUMIN 3.5 GM/DL (3.2-5.2); ALBUMIN/GLOBULIN RATIO 1.17 (1.00-1.93); ALKALINE PHOSPHATASE 165 U/L (45-117); ALT/SGPT 34 U/L (12-78); ANION GAP 9 MEQ/L (8-16); AST/SGOT 40 U/L (7-37); BILIRUBIN,TOTAL 0.4 MG/DL (0.2-1.0); BLOOD UREA NITROGEN 23 MG/DL (7-18); CALCIUM LEVEL 8.7 MG/DL (8.8-10.2); CARBON DIOXIDE LEVEL 25 MEQ/L (21-32); CHLORIDE LEVEL 99 MEQ/L (98-107); CREATININE FOR GFR 0.94 MG/DL (0.70-1.30); GLOMERULAR FILTRATION RATE > 60.0 (>35); GLUCOSE, FASTING 222 MG/DL (83-110); POTASSIUM SERUM 4.4 MEQ/L (3.5-5.1); SODIUM LEVEL 133 MEQ/L (136-145); TOTAL PROTEIN 6.5 GM/DL (6.4-8.2)
== END ==
DX: I50.9 Heart failure, unspecified (principal)
CPT/HCPCS: 82140

== ENCOUNTER → 2017-05-03 | Outpatient (REF) | payer MEDICAID, OTHER, MEDICARE ==
[2017-05-03 12:48] LABS: AMMONIA 51 uMOL/L (<32)
== END ==
DX: K74.60 Unspecified cirrhosis of liver (principal)

== ENCOUNTER → 2017-05-10 | Outpatient (REF) | payer MEDICARE, OTHER, MEDICAID ==
[2017-05-10 10:15] LABS: AMMONIA 68 uMOL/L (<32)
== END ==
DX: K74.60 Unspecified cirrhosis of liver (principal)
CPT/HCPCS: 82140

== ENCOUNTER → 2017-05-22 | Outpatient (REF) | payer MEDICARE, OTHER, MEDICAID ==
[2017-05-22 10:38] LABS: HEMATOCRIT 31.1 % (42.0-52.0); HEMOGLOBIN 10.2 g/dl (14.0-18.0); MEAN CORPUSCULAR HEMOGLOBIN 30.8 pg (27.0-33.0); MEAN CORPUSCULAR HGB CONC 32.8 g/dl (32.0-36.5); RED BLOOD COUNT 3.31 10^6/uL (4.30-6.10); WHITE BLOOD COUNT 4.6 10^3/uL (4.0-10.0)
[2017-05-22 10:41] LABS: PLATELET COUNT, AUTOMATED 73 10^3/uL (150-450)
[2017-05-22 10:42] LABS: IMMATURE PLATELET FRACTION % 10.9 % (0.0-10.9); PLATELET F 71
[2017-05-22 10:52] LABS: ESTIMATED AVERAGE GLUCOSE 166 MG/DL (60-110); HEMOGLOBIN A1c 7.4 %
[2017-05-22 11:06] LABS: ANION GAP 11 MEQ/L (8-16); BLOOD UREA NITROGEN 22 MG/DL (7-18); CALCIUM LEVEL 8.8 MG/DL (8.8-10.2); CARBON DIOXIDE LEVEL 25 MEQ/L (21-32); CHLORIDE LEVEL 95 MEQ/L (98-107); CREATININE FOR GFR 1.16 MG/DL (0.70-1.30); GLOMERULAR FILTRATION RATE > 60.0 (>35); GLUCOSE, FASTING 292 MG/DL (70-100); POTASSIUM SERUM 4.7 MEQ/L (3.5-5.1); SODIUM LEVEL 131 MEQ/L (136-145)
== END ==
DX: D64.9 Anemia, unspecified (principal); E11.9 Type 2 diabetes mellitus without complications
CPT/HCPCS: 83036

== ENCOUNTER → 2017-05-23 | Outpatient (REF) | payer MEDICARE, OTHER, MEDICAID | DX: J40 Bronchitis, not specified as acute or chronic (principal) | CPT/HCPCS: 71045 ==

== ENCOUNTER → 2017-06-04 | Outpatient (REF) | payer MEDICARE, OTHER, MEDICAID ==
[2017-06-04 17:54] LABS: AMMONIA 106 uMOL/L (<32)
[2017-06-04 17:55] LABS: ANION GAP 9 MEQ/L (8-16); BLOOD UREA NITROGEN 16 MG/DL (7-18); CALCIUM LEVEL 8.5 MG/DL (8.8-10.2); CARBON DIOXIDE LEVEL 26 MEQ/L (21-32); CHLORIDE LEVEL 97 MEQ/L (98-107); CREATININE FOR GFR 0.93 MG/DL (0.70-1.30); GLOMERULAR FILTRATION RATE > 60.0 (>35); GLUCOSE, FASTING 191 MG/DL (70-100); POTASSIUM SERUM 4.5 MEQ/L (3.5-5.1); SODIUM LEVEL 132 MEQ/L (136-145)
== END ==
DX: E87.1 Hypo-osmolality and hyponatremia (principal); K74.60 Unspecified cirrhosis of liver
CPT/HCPCS: 82140

== ENCOUNTER → 2017-06-19 | Outpatient (REF) | payer MEDICARE, OTHER, MEDICAID ==
[2017-06-19 09:41] LABS: AMMONIA 34 uMOL/L (<32)
== END ==
DX: K74.60 Unspecified cirrhosis of liver (principal)
CPT/HCPCS: 82140

== ENCOUNTER → 2017-07-16 | Outpatient (REF) | payer MEDICARE, OTHER, MEDICAID ==
[2017-07-16 10:47] LABS: ANION GAP 11 MEQ/L (8-16); BLOOD UREA NITROGEN 17 MG/DL (7-18); CALCIUM LEVEL 8.8 MG/DL (8.8-10.2); CARBON DIOXIDE LEVEL 25 MEQ/L (21-32); CHLORIDE LEVEL 97 MEQ/L (98-107); CREATININE FOR GFR 1.13 MG/DL (0.70-1.30); GLOMERULAR FILTRATION RATE > 60.0 (>35); GLUCOSE, FASTING 243 MG/DL (70-100); POTASSIUM SERUM 4.2 MEQ/L (3.5-5.1); SODIUM LEVEL 133 MEQ/L (136-145)
[2017-07-16 10:52] LABS: AMMONIA 53 uMOL/L (<32)
== END ==
DX: E87.6 Hypokalemia (principal); K74.60 Unspecified cirrhosis of liver
CPT/HCPCS: 82140

== ENCOUNTER → 2017-07-30 | Outpatient (REF) | payer MEDICARE, OTHER, MEDICAID ==
[2017-07-30 10:24] LABS: AMMONIA 38 uMOL/L (<32)
== END ==
DX: K74.60 Unspecified cirrhosis of liver (principal)
CPT/HCPCS: 82140

== ENCOUNTER 2017-08-12 12:34 | Outpatient (REF) | payer MEDICARE, OTHER, MEDICAID ==
[2017-08-13 11:26] LABS: AMMONIA 47 uMOL/L (<32)
== END 2017-08-13 ==
DX: K74.60 Unspecified cirrhosis of liver (principal)
CPT/HCPCS: 82140

== ENCOUNTER → 2017-08-16 | Outpatient (CLI) | payer MEDICARE, OTHER, MEDICAID ==
[2017-08-16 23:06] LABS: INFLUENZA A AMPLIFICATION NEGATIVE (NEGATIVE); INFLUENZA B AMPLIFICATION NEGATIVE (NEGATIVE)
== END ==
DX: R06.00 Dyspnea, unspecified (principal)
CPT/HCPCS: 87502

== ENCOUNTER → 2017-08-17 | Outpatient (REF) | payer MEDICARE, OTHER, MEDICAID ==
[2017-08-17 12:49] LABS: EOS % 0.4 % (0.0-3.0); HEMATOCRIT 27.9 % (42.0-52.0); HEMOGLOBIN 8.7 g/dl (13.5-17.5); IMMATURE GRANULOCYTE % 0.4 % (0-3.0); LYMPH # 0.9 10^3/uL (1.5-4.5); LYMPH % 17.2 % (24.0-44.0); MEAN CORPUSCULAR HEMOGLOBIN 29.9 pg (27.0-33.0); MEAN CORPUSCULAR HGB CONC 31.2 g/dl (32.0-36.5); MEAN CORPUSCULAR VOLUME 95.9 fl (80.0-96.0); MONO % 36.8 % (0.0-5.0); NEUTROPHILS # 2.4 10^3/uL (1.8-7.7); NEUTROPHILS % 45.2 % (36.0-66.0); RED BLOOD COUNT 2.91 10^6/uL (4.30-6.10); RED CELL DISTRIBUTION WIDTH 14.9 % (11.5-14.5); WHITE BLOOD COUNT 5.3 10^3/uL (4.0-10.0)
[2017-08-17 12:51] LABS: PLATELET COUNT, AUTOMATED 58 10^3/uL (150-450)
[2017-08-17 12:52] LABS: IMMATURE PLATELET FRACTION % 11.6 % (0.0-10.9)
[2017-08-17 13:15] LABS: ALBUMIN 3.5 GM/DL (3.2-5.2); ALBUMIN/GLOBULIN RATIO 1.35 (1.00-1.93); ALKALINE PHOSPHATASE 111 U/L (45-117); ALT/SGPT 26 U/L (12-78); ANION GAP 8 MEQ/L (8-16); AST/SGOT 19 U/L (7-37); BILIRUBIN,TOTAL 0.5 MG/DL (0.2-1.0); BLOOD UREA NITROGEN 21 MG/DL (7-18); CALCIUM LEVEL 8.3 MG/DL (8.8-10.2); CARBON DIOXIDE LEVEL 24 MEQ/L (21-32); CHLORIDE LEVEL 103 MEQ/L (98-107); CREATININE FOR GFR 1.18 MG/DL (0.70-1.30); GLOMERULAR FILTRATION RATE > 60.0 (>35); GLUCOSE, FASTING 159 MG/DL (70-100); NT-PRO BNP 1103 PG/ML (<450); POTASSIUM SERUM 4.5 MEQ/L (3.5-5.1); SODIUM LEVEL 135 MEQ/L (136-145); TOTAL PROTEIN 6.1 GM/DL (6.4-8.2); TROPONIN I < 0.02 NG/ML (< 0.10)
== END ==
DX: R50.9 Fever, unspecified (principal); R00.0 Tachycardia, unspecified
CPT/HCPCS: 80053

== ENCOUNTER → 2017-08-19 | Outpatient (REF) | payer MEDICARE, OTHER, MEDICAID | DX: R91.8 Other nonspecific abnormal finding of lung field (principal); I51.7 Cardiomegaly | CPT/HCPCS: 71045 ==

== ENCOUNTER → 2017-08-20 | Outpatient (REF) | payer MEDICARE, OTHER, MEDICAID ==
[2017-08-20 10:40] LABS: HEMOGLOBIN 8.5 g/dl (13.5-17.5); MEAN CORPUSCULAR HEMOGLOBIN 29.2 pg (27.0-33.0); MEAN CORPUSCULAR HGB CONC 31.5 g/dl (32.0-36.5); MEAN CORPUSCULAR VOLUME 92.8 fl (80.0-96.0); RED BLOOD COUNT 2.91 10^6/uL (4.30-6.10); RED CELL DISTRIBUTION WIDTH 14.6 % (11.5-14.5); WHITE BLOOD COUNT 3.2 10^3/uL (4.0-10.0)
[2017-08-20 10:47] LABS: PLATELET COUNT, AUTOMATED 63 10^3/uL (150-450)
[2017-08-20 10:48] LABS: IMMATURE PLATELET FRACTION % 11.7 % (0.0-10.9); PLATELET F 59
[2017-08-20 11:12] LABS: ANION GAP 12 MEQ/L (8-16); BLOOD UREA NITROGEN 16 MG/DL (7-18); CALCIUM LEVEL 8.4 MG/DL (8.8-10.2); CARBON DIOXIDE LEVEL 22 MEQ/L (21-32); CHLORIDE LEVEL 100 MEQ/L (98-107); GLOMERULAR FILTRATION RATE > 60.0 (>35); GLUCOSE, FASTING 284 MG/DL (70-100); IRON (FE) 25 UG/DL (65-175); PERCENT SATURATION 5.8 % (19.7-50.0); SODIUM LEVEL 134 MEQ/L (136-145); TOTAL IRON BINDING CAPACITY 434 UG/DL (250-450)
[2017-08-20 12:13] LABS: FERRITIN 21 NG/ML (26-388)
[2017-08-20 14:16] LABS: ESTIMATED AVERAGE GLUCOSE 140 MG/DL (60-110); HEMOGLOBIN A1c 6.5 %
[2017-08-20 14:47] LABS: FOLATE > 24.0 NG/ML (>5.4); VITAMIN B12 LEVEL 602 PG/ML (247-911)
[2017-08-20 15:56] LABS: INR 1.24; PROTHROMBIN TIME 15.8 SECONDS (12.4-14.5)
[2017-08-20 15:57] LABS: PARTIAL THROMBOPLASTIN TIME 30.8 SECONDS (26.8-37.9)
== END ==
DX: D50.9 Iron deficiency anemia, unspecified (principal); E11.9 Type 2 diabetes mellitus without complications
CPT/HCPCS: 82746

== ENCOUNTER → 2017-08-27 | Outpatient (REF) | payer MEDICARE, OTHER, MEDICAID ==
[2017-08-27 10:57] LABS: AMMONIA 59 uMOL/L (<32)
== END ==
DX: K74.60 Unspecified cirrhosis of liver (principal)
CPT/HCPCS: 82140

== ENCOUNTER → 2017-09-10 | Outpatient (REF) | payer MEDICARE, OTHER, MEDICAID ==
[2017-09-10 09:45] LABS: AMMONIA 58 uMOL/L (<32)
== END ==
DX: K74.60 Unspecified cirrhosis of liver (principal)
CPT/HCPCS: 82140

== ENCOUNTER → 2017-10-04 | Outpatient (REF) | payer MEDICARE, OTHER, MEDICAID ==
[2017-10-04 11:43] LABS: ANION GAP 10 MEQ/L (8-16); BLOOD UREA NITROGEN 39 MG/DL (7-18); CALCIUM LEVEL 8.8 MG/DL (8.8-10.2); CARBON DIOXIDE LEVEL 26 MEQ/L (21-32); CHLORIDE LEVEL 99 MEQ/L (98-107); CREATININE FOR GFR 1.25 MG/DL (0.70-1.30); GLOMERULAR FILTRATION RATE 58.6 (>35); GLUCOSE, FASTING 204 MG/DL (70-100); POTASSIUM SERUM 4.2 MEQ/L (3.5-5.1); SODIUM LEVEL 135 MEQ/L (136-145)
== END ==
DX: I50.9 Heart failure, unspecified (principal)
CPT/HCPCS: 80048

== ENCOUNTER → 2017-10-08 | Outpatient (REF) | payer MEDICARE, OTHER, MEDICAID ==
[2017-10-08 09:57] LABS: AMMONIA 46 uMOL/L (<32)
[2017-10-08 10:23] LABS: ANION GAP 11 MEQ/L (8-16); BLOOD UREA NITROGEN 30 MG/DL (7-18); CALCIUM LEVEL 9.1 MG/DL (8.8-10.2); CARBON DIOXIDE LEVEL 27 MEQ/L (21-32); CHLORIDE LEVEL 94 MEQ/L (98-107); CREATININE FOR GFR 1.16 MG/DL (0.70-1.30); GLOMERULAR FILTRATION RATE > 60.0 (>35); GLUCOSE, FASTING 225 MG/DL (70-100); POTASSIUM SERUM 4.6 MEQ/L (3.5-5.1); SODIUM LEVEL 132 MEQ/L (136-145)
== END ==
DX: I50.9 Heart failure, unspecified (principal); K74.60 Unspecified cirrhosis of liver
CPT/HCPCS: 82140

== ENCOUNTER → 2017-10-15 | Outpatient (REF) | payer MEDICARE, OTHER, MEDICAID ==
[2017-10-15 11:49] LABS: ANION GAP 13 MEQ/L (8-16); BLOOD UREA NITROGEN 12 MG/DL (7-18); CALCIUM LEVEL 8.2 MG/DL (8.8-10.2); CARBON DIOXIDE LEVEL 26 MEQ/L (21-32); CHLORIDE LEVEL 90 MEQ/L (98-107); CREATININE FOR GFR 0.98 MG/DL (0.70-1.30); GLOMERULAR FILTRATION RATE > 60.0 (>35); GLUCOSE, FASTING 229 MG/DL (70-100); POTASSIUM SERUM 4.1 MEQ/L (3.5-5.1); SODIUM LEVEL 129 MEQ/L (136-145)
== END ==
DX: I50.9 Heart failure, unspecified (principal)
CPT/HCPCS: 80048

== ENCOUNTER 2017-10-22 09:25 | Outpatient (REF) | payer MEDICARE, OTHER, MEDICAID ==
[2017-10-25 10:44] LABS: AMMONIA 50 uMOL/L (<32)
[2017-11-01 14:28] LABS: AMMONIA 50 uMOL/L (<32)
== END 2017-10-25 ==
DX: K74.60 Unspecified cirrhosis of liver (principal)
CPT/HCPCS: 82140

== ENCOUNTER → 2017-10-27 | Outpatient (REF) | payer MEDICARE, OTHER, MEDICAID ==
[2017-10-27 12:37] LABS: EOS % 0.3 % (0.0-3.0); HEMATOCRIT 32.1 % (42.0-52.0); HEMOGLOBIN 10.5 g/dl (13.5-17.5); IMMATURE GRANULOCYTE % 0.8 % (0-3.0); LYMPH # 0.8 10^3/uL (1.5-4.5); LYMPH % 20.4 % (24.0-44.0); MEAN CORPUSCULAR HEMOGLOBIN 30.7 pg (27.0-33.0); MEAN CORPUSCULAR HGB CONC 32.7 g/dl (32.0-36.5); MEAN CORPUSCULAR VOLUME 93.9 fl (80.0-96.0); MONO % 23.9 % (0.0-5.0); NEUTROPHILS # 2.2 10^3/uL (1.8-7.7); NEUTROPHILS % 54.6 % (36.0-66.0); RED BLOOD COUNT 3.42 10^6/uL (4.30-6.10); RED CELL DISTRIBUTION WIDTH 17.6 % (11.5-14.5)
[2017-10-27 12:47] LABS: PLATELET COUNT, AUTOMATED 62 10^3/uL (150-450)
[2017-10-27 12:48] LABS: IMMATURE PLATELET FRACTION % 9.9 % (0.0-10.9)
== END ==
DX: H05.229 Edema of unspecified orbit (principal); R51 Headache; R09.81 Nasal congestion
CPT/HCPCS: 85049

== ENCOUNTER → 2017-11-19 | Outpatient (REF) | payer MEDICARE, OTHER, MEDICAID ==
[2017-11-19 11:13] LABS: HEMATOCRIT 32.5 % (42.0-52.0); HEMOGLOBIN 10.4 g/dl (13.5-17.5); MEAN CORPUSCULAR HEMOGLOBIN 30.7 pg (27.0-33.0); MEAN CORPUSCULAR VOLUME 95.9 fl (80.0-96.0); RED BLOOD COUNT 3.39 10^6/uL (4.30-6.10); RED CELL DISTRIBUTION WIDTH 17.1 % (11.5-14.5); WHITE BLOOD COUNT 3.6 10^3/uL (4.0-10.0)
[2017-11-19 11:19] LABS: PLATELET COUNT, AUTOMATED 67 10^3/uL (150-450)
[2017-11-19 11:20] LABS: IMMATURE PLATELET FRACTION % 9.7 % (0.0-10.9)
[2017-11-19 11:46] LABS: FOLATE > 24.0 NG/ML (>5.4)
[2017-11-19 11:47] LABS: AMMONIA 79 uMOL/L (<32)
[2017-11-19 11:50] LABS: ANION GAP 12 MEQ/L (8-16); BLOOD UREA NITROGEN 16 MG/DL (7-18); CALCIUM LEVEL 8.6 MG/DL (8.8-10.2); CARBON DIOXIDE LEVEL 24 MEQ/L (21-32); CHLORIDE LEVEL 99 MEQ/L (98-107); CREATININE FOR GFR 0.98 MG/DL (0.70-1.30); FERRITIN 38 NG/ML (26-388); GLOMERULAR FILTRATION RATE > 60.0 (>35); GLUCOSE, FASTING 211 MG/DL (70-100); IRON (FE) 42 UG/DL (65-175); PERCENT SATURATION 10.1 % (19.7-50.0); POTASSIUM SERUM 4.2 MEQ/L (3.5-5.1); SODIUM LEVEL 135 MEQ/L (136-145); TOTAL IRON BINDING CAPACITY 417 UG/DL (250-450)
[2017-11-19 13:32] LABS: ESTIMATED AVERAGE GLUCOSE 151 MG/DL (60-110); HEMOGLOBIN A1c 6.9 %
== END ==
DX: E11.9 Type 2 diabetes mellitus without complications (principal); D50.9 Iron deficiency anemia, unspecified
CPT/HCPCS: 82140

== ENCOUNTER → 2017-12-03 | Outpatient (REF) | payer MEDICARE, OTHER, MEDICAID ==
[2017-12-03 11:55] LABS: AMMONIA 60 uMOL/L (<32)
== END ==
DX: K74.60 Unspecified cirrhosis of liver (principal)
CPT/HCPCS: 82140

== ENCOUNTER → 2017-12-17 | Outpatient (REF) | payer MEDICARE, OTHER, MEDICAID ==
[2017-12-17 09:44] LABS: AMMONIA 34 uMOL/L (<32)
== END ==
DX: K74.60 Unspecified cirrhosis of liver (principal)
CPT/HCPCS: 82140

== ENCOUNTER → 2017-12-31 | Outpatient (REF) | payer MEDICARE, OTHER, MEDICAID ==
[2017-12-31 11:26] LABS: AMMONIA 85 uMOL/L (<32)
== END ==
DX: K74.60 Unspecified cirrhosis of liver (principal)
CPT/HCPCS: 82140

== ENCOUNTER → 2018-01-14 | Outpatient (REF) | payer MEDICARE, OTHER, MEDICAID ==
[2018-01-14 11:29] LABS: AMMONIA 77 uMOL/L (<32)
== END ==
DX: K74.60 Unspecified cirrhosis of liver (principal)
CPT/HCPCS: 82140

== ENCOUNTER → 2018-01-28 | Outpatient (REF) | payer MEDICARE, OTHER, MEDICAID ==
[2018-01-28 10:50] LABS: AMMONIA 58 uMOL/L (<32)
== END ==
DX: K74.60 Unspecified cirrhosis of liver (principal)
CPT/HCPCS: 82140

== ENCOUNTER → 2018-02-11 | Outpatient (REF) | payer MEDICARE, OTHER, MEDICAID ==
[2018-02-11 10:21] LABS: AMMONIA 59 uMOL/L (<32)
== END ==
DX: K74.60 Unspecified cirrhosis of liver (principal)
CPT/HCPCS: 82140

== ENCOUNTER → 2018-02-25 | Outpatient (REF) | payer MEDICARE, OTHER, MEDICAID ==
[2018-02-25 11:42] LABS: ESTIMATED AVERAGE GLUCOSE 148 MG/DL (60-110); HEMOGLOBIN A1c 6.8 %
== END ==
DX: K74.60 Unspecified cirrhosis of liver (principal); E11.9 Type 2 diabetes mellitus without complications
CPT/HCPCS: 83036

== ENCOUNTER → 2018-02-27 | Outpatient (REF) | payer MEDICARE, OTHER, MEDICAID ==
[2018-02-27 09:24] LABS: AMMONIA 56 uMOL/L (<32)
== END ==
DX: K74.60 Unspecified cirrhosis of liver (principal)
CPT/HCPCS: 82140

== ENCOUNTER → 2018-03-03 | Outpatient (REF) | payer MEDICARE, OTHER, MEDICAID ==
[~2018-03-03] MED LIST changes: -ACET1TAB17 PO; +ACET1TAB55 PO; -AMIL5TA PO; +AMIL5TAB4 PO; -GABA-283 PO; +GABA-845 PO; +KLOR10TA76 PO; -LISI2.5T3 PO; +LISI2.5T5 PO; +MILK12002 PO; -MILKSUS PO; -POTA10CA PO; +SPIR-10 PO; -SPIR25TA2 PO; -SULF1TAB23 PO; +SULF1TAB93 PO
== END ==
LOC: M SFHCPLAZ 17:24
PROVIDERS: ATTEND Dermatology
DX: D23.5 Other benign neoplasm of skin of trunk (principal); L57.0 Actinic keratosis
CPT/HCPCS: 11100; 11101; 17000; 17003; 88305; G0463

== ENCOUNTER → 2018-03-11 | Outpatient (REF) ==
[2018-03-11 12:14] LABS: AMMONIA 49 uMOL/L (<32)
== END ==
DX: K74.60 Unspecified cirrhosis of liver (principal)

== ENCOUNTER → 2018-03-25 | Outpatient (REF) ==
[2018-03-25 10:20] LABS: AMMONIA 62 uMOL/L (<32)
== END ==
DX: K74.60 Unspecified cirrhosis of liver (principal)

== ENCOUNTER → 2018-04-08 | Outpatient (REF) ==
[2018-04-08 10:31] LABS: AMMONIA 61 uMOL/L (<32)
== END ==
DX: K74.60 Unspecified cirrhosis of liver (principal)

== ENCOUNTER → 2018-04-23 | Outpatient (REF) | PROVIDERS: ATTEND Internal Medicine | DX: K74.60 Unspecified cirrhosis of liver (principal) ==

== ENCOUNTER → 2018-05-05 | Outpatient (REF) ==
[2018-05-05 13:20] LABS: HEMATOCRIT 32.4 % (42.0-52.0); HEMOGLOBIN 10.4 g/dl (13.5-17.5); MEAN CORPUSCULAR HEMOGLOBIN 30.9 pg (27.0-33.0); MEAN CORPUSCULAR HGB CONC 32.1 g/dl (32.0-36.5); MEAN CORPUSCULAR VOLUME 96.1 fl (80.0-96.0); RED BLOOD COUNT 3.37 10^6/uL (4.30-6.10); WHITE BLOOD COUNT 3.3 10^3/uL (4.0-10.0)
[2018-05-05 13:27] LABS: PLATELET COUNT, AUTOMATED 52 10^3/uL (150-450)
[2018-05-05 13:40] LABS: ALBUMIN 3.5 GM/DL (3.2-5.2); ALT/SGPT 25 U/L (12-78); BILIRUBIN,TOTAL 0.5 MG/DL (0.2-1.0); BLOOD UREA NITROGEN 17 MG/DL (7-18); CALCIUM LEVEL 8.3 MG/DL (8.8-10.2); CARBON DIOXIDE LEVEL 25 MEQ/L (21-32); CHLORIDE LEVEL 94 MEQ/L (98-107); CREATININE FOR GFR 1.07 MG/DL (0.70-1.30); FERRITIN 36 NG/ML (26-388); GLOMERULAR FILTRATION RATE > 60.0 (>35); GLUCOSE, FASTING 362 MG/DL (70-100); IRON (FE) 150 UG/DL (65-175); NT-PRO BNP 822 PG/ML (<450); PERCENT SATURATION 35.8 % (19.7-50.0); POTASSIUM SERUM 4.2 MEQ/L (3.5-5.1); SODIUM LEVEL 130 MEQ/L (136-145); TOTAL IRON BINDING CAPACITY 419 UG/DL (250-450); TOTAL PROTEIN 6.1 GM/DL (6.4-8.2)
[2018-05-05 13:44] LABS: FOLATE > 24.0 NG/ML (>5.4); VITAMIN B12 LEVEL 933 PG/ML (247-911)
== END ==
PROVIDERS: ATTEND Internal Medicine
DX: K74.60 Unspecified cirrhosis of liver (principal); R53.83 Other fatigue

== ENCOUNTER → 2018-05-20 | Outpatient (REF) ==
[~2018-05-20] MED LIST changes: -ENEMENE16 PR; +ENEMENE4 PR; -GABA800T PO; +GABA800T4 PO; +MILK120011 PO; -MILK12002 PO
[2018-05-20 09:10] LABS: HEMATOCRIT 32.4 % (42.0-52.0); HEMOGLOBIN 10.4 g/dl (13.5-17.5); MEAN CORPUSCULAR HGB CONC 32.1 g/dl (32.0-36.5); MEAN CORPUSCULAR VOLUME 96.4 fl (80.0-96.0); RED BLOOD COUNT 3.36 10^6/uL (4.30-6.10)
[2018-05-20 09:16] LABS: PLATELET COUNT, AUTOMATED 72 10^3/uL (150-450)
[2018-05-20 09:33] LABS: BLOOD UREA NITROGEN 18 MG/DL (7-18); CARBON DIOXIDE LEVEL 26 MEQ/L (21-32); CHLORIDE LEVEL 100 MEQ/L (98-107); CREATININE FOR GFR 1.04 MG/DL (0.70-1.30); GLOMERULAR FILTRATION RATE > 60.0 (>35); GLUCOSE, FASTING 180 MG/DL (70-100); POTASSIUM SERUM 4.9 MEQ/L (3.5-5.1); SODIUM LEVEL 136 MEQ/L (136-145)
[2018-05-20 09:43] LABS: HEMOGLOBIN A1c 7.3 %
== END ==
PROVIDERS: ATTEND Internal Medicine
DX: D64.9 Anemia, unspecified (principal); K74.60 Unspecified cirrhosis of liver; E11.9 Type 2 diabetes mellitus without complications

== ENCOUNTER → 2018-06-03 | Outpatient (REF) | payer MEDICARE, OTHER, MEDICAID | PROVIDERS: ATTEND Internal Medicine | DX: K74.60 Unspecified cirrhosis of liver (principal) ==

== ENCOUNTER → 2018-06-18 | Outpatient (REF) | payer MEDICARE, OTHER, MEDICAID | PROVIDERS: ATTEND Internal Medicine | DX: K74.60 Unspecified cirrhosis of liver (principal) ==

== ENCOUNTER → 2018-06-29 | Outpatient (REF) | payer MEDICARE, MEDICAID ==
[2018-06-29 22:28] LABS: HEMATOCRIT 32.2 % (42.0-52.0); HEMOGLOBIN 10.4 g/dl (13.5-17.5); MEAN CORPUSCULAR HEMOGLOBIN 31.1 pg (27.0-33.0); MEAN CORPUSCULAR HGB CONC 32.3 g/dl (32.0-36.5); MEAN CORPUSCULAR VOLUME 96.4 fl (80.0-96.0); RED BLOOD COUNT 3.34 10^6/uL (4.30-6.10); WHITE BLOOD COUNT 3.2 10^3/uL (4.0-10.0)
[2018-06-29 22:32] LABS: PLATELET COUNT, AUTOMATED 65 10^3/uL (150-450)
[2018-06-29 22:36] LABS: BLOOD UREA NITROGEN 18 MG/DL (7-18); CALCIUM LEVEL 8.2 MG/DL (8.8-10.2); CARBON DIOXIDE LEVEL 22 MEQ/L (21-32); CHLORIDE LEVEL 98 MEQ/L (98-107); CREATININE FOR GFR 1.06 MG/DL (0.70-1.30); ETHYL ALCOHOL (ETHANOL) 0.005 % (0.000-0.010); GLOMERULAR FILTRATION RATE > 60.0 (>35); GLUCOSE, FASTING 224 MG/DL (70-100); POTASSIUM SERUM 3.9 MEQ/L (3.5-5.1); SODIUM LEVEL 133 MEQ/L (136-145)
== END ==
PROVIDERS: ATTEND Internal Medicine
DX: I50.9 Heart failure, unspecified (principal); I48.91 Unspecified atrial fibrillation; E11.9 Type 2 diabetes mellitus without complications; Z79.899 Other long term (current) drug therapy
CPT/HCPCS: 80048; 85027; 85049; 85055; G0480

== ENCOUNTER → 2018-06-30 | Outpatient (REF) | payer MEDICARE, MEDICAID ==
--- NOTE | 2018-06-30 18:39 | REP ---
Clinical: Left shoulder pain with recent trauma/fall. Technique: Internal rotation, external rotation, and Y view of the left shoulder. Findings: Generalized age-related degenerative changes are noted. Acromioclavicular and glenohumeral joints are intact. No acute fracture dislocation. Subacromial space is normal. No significant periarticular calcifications or loose bodies identified. Surrounding soft tissues normal. Impression: Generalized age-related changes. No acute fracture or dislocation. Electronically Signed by Abraham Spivey MD 06/30/2018 06:30 P
--- NOTE | 2018-06-30 18:42 | REP ---
Clinical: Left hand pain with recent trauma Technique: AP, lateral, bilateral oblique views left hand . 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 No definite acute fracture identified. Impression: Advanced osteopenia and degenerative changes with peripheral vascular disease. Findings limit evaluation for subtle injury involving the wrist. Clinical correlation is recommended and reevaluation may be warranted if trauma is still suspected. Electronically Signed by Abraham Spivey MD 06/30/2018 06:34 P
== END ==
PROVIDERS: ATTEND Internal Medicine
DX: M25.512 Pain in left shoulder (principal); M79.642 Pain in left hand

== ENCOUNTER → 2018-07-01 | Outpatient (REF) | payer MEDICARE, OTHER, MEDICAID | PROVIDERS: ATTEND Internal Medicine | DX: K74.60 Unspecified cirrhosis of liver (principal) ==

== ENCOUNTER → 2018-07-15 | Outpatient (REF) | payer MEDICARE, OTHER, MEDICAID | PROVIDERS: ATTEND Internal Medicine | DX: K74.60 Unspecified cirrhosis of liver (principal) ==

== ENCOUNTER → 2018-07-17 | Outpatient (REF) | payer MEDICARE, OTHER, MEDICAID ==
[2018-07-17 11:54] LABS: HEMATOCRIT 33.7 % (42.0-52.0); HEMOGLOBIN 11.1 g/dl (13.5-17.5); LYMPH # 0.7 10^3/uL (1.5-4.5); LYMPH % 23.1 % (24.0-44.0); MEAN CORPUSCULAR HEMOGLOBIN 30.8 pg (27.0-33.0); MEAN CORPUSCULAR HGB CONC 32.9 g/dl (32.0-36.5); MEAN CORPUSCULAR VOLUME 93.6 fl (80.0-96.0); MONO # 0.9 10^3/uL (0.0-0.8); MONO % 28.3 % (0.0-5.0); NEUTROPHILS # 1.5 10^3/uL (1.8-7.7); WHITE BLOOD COUNT 3.2 10^3/uL (4.0-10.0)
[2018-07-17 12:17] LABS: ALBUMIN 3.3 GM/DL (3.2-5.2); ALT/SGPT 21 U/L (12-78); BILIRUBIN,TOTAL 0.7 MG/DL (0.2-1.0); BLOOD UREA NITROGEN 16 MG/DL (7-18); CALCIUM LEVEL 8.5 MG/DL (8.8-10.2); CARBON DIOXIDE LEVEL 22 MEQ/L (21-32); CHLORIDE LEVEL 104 MEQ/L (98-107); CREATININE FOR GFR 1.11 MG/DL (0.70-1.30); GLOMERULAR FILTRATION RATE > 60.0 (>35); GLUCOSE, FASTING 212 MG/DL (70-100); INFLUENZA A AMPLIFICATION POSITIVE (NEGATIVE); INFLUENZA B AMPLIFICATION NEGATIVE (NEGATIVE); NT-PRO BNP 1996 PG/ML (<450); POTASSIUM SERUM 4.2 MEQ/L (3.5-5.1); SODIUM LEVEL 139 MEQ/L (136-145); TOTAL PROTEIN 5.6 GM/DL (6.4-8.2)
[2018-07-17 12:19] LABS: PLATELET COUNT, AUTOMATED 18 10^3/uL (150-450)
--- NOTE | 2018-07-17 13:50 | REP ---
CHEST X-RAY: Single AP view. HISTORY: Cough and fatigue. COMPARISON STUDY: August 19, 2017. 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 Median sternotomy wires are seen. Pulmonary vasculature is cephalized in somewhat congested appearance as before. There is no evidence of pleural effusion or yin pulmonary edema. No focal infiltrate is seen. IMPRESSION: Cardiomegaly with pacemaker. Pulmonary vascular cephalization and congestion. No pleural effusion or yin pulmonary edema is appreciated. Electronically Signed by Colin Carter MD 07/17/2018 03:11 P
== END ==
PROVIDERS: ATTEND Internal Medicine
DX: R05 Cough (principal); R53.83 Other fatigue; I51.7 Cardiomegaly; Z95.0 Presence of cardiac pacemaker

== ENCOUNTER → 2018-07-21 | Outpatient (REF) | payer MEDICARE, OTHER, MEDICAID ==
[2018-07-21 10:11] LABS: HEMOGLOBIN 11.7 g/dl (13.5-17.5); MEAN CORPUSCULAR HEMOGLOBIN 30.1 pg (27.0-33.0); MEAN CORPUSCULAR HGB CONC 32.5 g/dl (32.0-36.5); MEAN CORPUSCULAR VOLUME 92.5 fl (80.0-96.0); RED BLOOD COUNT 3.89 10^6/uL (4.30-6.10); WHITE BLOOD COUNT 2.8 10^3/uL (4.0-10.0)
[2018-07-21 10:23] LABS: PLATELET COUNT, AUTOMATED 22 10^3/uL (150-450)
== END ==
PROVIDERS: ATTEND Internal Medicine
DX: D69.6 Thrombocytopenia, unspecified (principal)

== ENCOUNTER → 2018-07-24 | Outpatient (REF) | payer MEDICARE, OTHER, MEDICAID ==
[2018-07-24 10:21] LABS: HEMATOCRIT 37.6 % (42.0-52.0); HEMOGLOBIN 12.5 g/dl (13.5-17.5); MEAN CORPUSCULAR HEMOGLOBIN 30.2 pg (27.0-33.0); MEAN CORPUSCULAR HGB CONC 33.2 g/dl (32.0-36.5); MEAN CORPUSCULAR VOLUME 90.8 fl (80.0-96.0); RED BLOOD COUNT 4.14 10^6/uL (4.30-6.10); WHITE BLOOD COUNT 4.8 10^3/uL (4.0-10.0)
[2018-07-24 10:26] LABS: PLATELET COUNT, AUTOMATED 16 10^3/uL (150-450)
[2018-07-24 10:42] LABS: BLOOD UREA NITROGEN 27 MG/DL (7-18); CALCIUM LEVEL 8.9 MG/DL (8.8-10.2); CARBON DIOXIDE LEVEL 29 MEQ/L (21-32); CHLORIDE LEVEL 95 MEQ/L (98-107); CREATININE FOR GFR 0.91 MG/DL (0.70-1.30); GLOMERULAR FILTRATION RATE > 60.0 (>35); GLUCOSE, FASTING 128 MG/DL (70-100); NT-PRO BNP 909 PG/ML (<450); POTASSIUM SERUM 3.2 MEQ/L (3.5-5.1); SODIUM LEVEL 134 MEQ/L (136-145)
== END ==
PROVIDERS: ATTEND Internal Medicine
DX: I50.9 Heart failure, unspecified (principal); R53.83 Other fatigue; D69.6 Thrombocytopenia, unspecified

== ENCOUNTER → 2018-07-28 | Outpatient (REF) | payer MEDICARE, OTHER, MEDICAID ==
[2018-07-28 11:15] LABS: HEMATOCRIT 39.4 % (42.0-52.0); HEMOGLOBIN 13.2 g/dl (13.5-17.5); MEAN CORPUSCULAR HEMOGLOBIN 30.4 pg (27.0-33.0); MEAN CORPUSCULAR HGB CONC 33.5 g/dl (32.0-36.5); MEAN CORPUSCULAR VOLUME 90.8 fl (80.0-96.0); RED BLOOD COUNT 4.34 10^6/uL (4.30-6.10); WHITE BLOOD COUNT 8.1 10^3/uL (4.0-10.0)
[2018-07-28 11:17] LABS: PLATELET COUNT, AUTOMATED 24 10^3/uL (150-450)
== END ==
PROVIDERS: ATTEND Internal Medicine
DX: I51.9 Heart disease, unspecified (principal); E87.6 Hypokalemia

== ENCOUNTER → 2018-07-29 | Outpatient (REF) | payer MEDICARE, OTHER, MEDICAID ==
[2018-07-29 09:02] LABS: HEMATOCRIT 39.1 % (42.0-52.0); HEMOGLOBIN 13.2 g/dl (13.5-17.5); MEAN CORPUSCULAR HEMOGLOBIN 30.1 pg (27.0-33.0); MEAN CORPUSCULAR HGB CONC 33.8 g/dl (32.0-36.5); MEAN CORPUSCULAR VOLUME 89.1 fl (80.0-96.0); RED BLOOD COUNT 4.39 10^6/uL (4.30-6.10); WHITE BLOOD COUNT 8.8 10^3/uL (4.0-10.0)
[2018-07-29 09:05] LABS: PLATELET COUNT, AUTOMATED 34 10^3/uL (150-450)
[2018-07-29 09:31] LABS: BLOOD UREA NITROGEN 26 MG/DL (7-18); CALCIUM LEVEL 8.6 MG/DL (8.8-10.2); CARBON DIOXIDE LEVEL 24 MEQ/L (21-32); CHLORIDE LEVEL 97 MEQ/L (98-107); CREATININE FOR GFR 1.16 MG/DL (0.70-1.30); GLOMERULAR FILTRATION RATE > 60.0 (>35); GLUCOSE, FASTING 214 MG/DL (70-100); SODIUM LEVEL 130 MEQ/L (136-145)
== END ==
PROVIDERS: ATTEND Internal Medicine
DX: I50.9 Heart failure, unspecified (principal)

== ENCOUNTER → 2018-08-05 | Outpatient (REF) | payer MEDICARE, OTHER, MEDICAID ==
[~2018-08-05] MED LIST changes: -ASPI1TAB PO; +ASPI81TA26 PO; -D 501TAB PO; +LISI-1046 PO; -LISI2.5T5 PO; +PRED-351 PO; -PRED10TA PO; +SENN1TAB41 PO; -SENN8.6T7 PO; +VITA500030 PO
[2018-08-05 09:20] LABS: HEMATOCRIT 35.7 % (42.0-52.0); HEMOGLOBIN 11.9 g/dl (13.5-17.5); MEAN CORPUSCULAR HEMOGLOBIN 29.8 pg (27.0-33.0); MEAN CORPUSCULAR HGB CONC 33.3 g/dl (32.0-36.5); MEAN CORPUSCULAR VOLUME 89.5 fl (80.0-96.0); RED BLOOD COUNT 3.99 10^6/uL (4.30-6.10)
[2018-08-05 09:21] LABS: PLATELET COUNT, AUTOMATED 35 10^3/uL (150-450)
[2018-08-05 09:40] LABS: BLOOD UREA NITROGEN 27 MG/DL (7-18); CALCIUM LEVEL 8.1 MG/DL (8.8-10.2); CARBON DIOXIDE LEVEL 26 MEQ/L (21-32); CHLORIDE LEVEL 96 MEQ/L (98-107); CREATININE FOR GFR 0.98 MG/DL (0.70-1.30); GLOMERULAR FILTRATION RATE > 60.0 (>35); GLUCOSE, FASTING 171 MG/DL (70-100); POTASSIUM SERUM 4.6 MEQ/L (3.5-5.1); SODIUM LEVEL 131 MEQ/L (136-145)
== END ==
PROVIDERS: ATTEND Internal Medicine
DX: I50.9 Heart failure, unspecified (principal); E87.6 Hypokalemia

== ENCOUNTER → 2018-08-13 | Outpatient (REF) | payer MEDICARE, OTHER, MEDICAID ==
--- NOTE | 2018-08-13 16:10 | REP ---
Portable chest, 04:34 p.m., the the patient is upright, single AP view: Comparisons are 07/17/2018 and 08/19/2017. . There is diffuse interstitial coarsening, cardiomegaly, sternotomy wires and pacemaker, all unchanged from both prior studies. This could represent chronic interstitial edema or pulmonary fibrosis, or combination . Electronically Signed by Matt Amaro MD 08/13/2018 04:03 P
--- NOTE | 2018-08-13 16:34 | REP ---
Supine abdomen two views: Comparison is the CT of the abdomen dated 03/15/2016. The bowel gas pattern is normal. 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 The study is underpenetrated. The study otherwise unremarkable. Impression: Normal bowel gas pattern. Electronically Signed by Matt Amaro MD 08/13/2018 04:25 P
[2018-08-13 16:46] LABS: BASO % 0.1 % (0.0-1.0); EOS % 0.1 % (0.0-3.0); HEMATOCRIT 32.4 % (42.0-52.0); HEMOGLOBIN 11.1 g/dl (13.5-17.5); LYMPH # 0.9 10^3/uL (1.5-4.5); LYMPH % 6.5 % (24.0-44.0); MEAN CORPUSCULAR HEMOGLOBIN 29.7 pg (27.0-33.0); MEAN CORPUSCULAR HGB CONC 34.3 g/dl (32.0-36.5); MEAN CORPUSCULAR VOLUME 86.6 fl (80.0-96.0); MONO % 22.3 % (0.0-5.0); NEUTROPHILS # 9.4 10^3/uL (1.8-7.7); NEUTROPHILS % 70.3 % (36.0-66.0); RED BLOOD COUNT 3.74 10^6/uL (4.30-6.10); WHITE BLOOD COUNT 13.4 10^3/uL (4.0-10.0)
[2018-08-13 17:08] LABS: ALT/SGPT 33 U/L (12-78); AMYLASE 52 U/L (25-115); BILIRUBIN,TOTAL 0.9 MG/DL (0.2-1.0); BLOOD UREA NITROGEN 33 MG/DL (7-18); CALCIUM LEVEL 8.1 MG/DL (8.8-10.2); CARBON DIOXIDE LEVEL 24 MEQ/L (21-32); CHLORIDE LEVEL 95 MEQ/L (98-107); CREATININE FOR GFR 1.21 MG/DL (0.70-1.30); GLOMERULAR FILTRATION RATE > 60.0 (>35); GLUCOSE, FASTING 185 MG/DL (70-100); LIPASE 238 U/L (73-393); NT-PRO BNP 1241 PG/ML (<450); POTASSIUM SERUM 4.4 MEQ/L (3.5-5.1); SODIUM LEVEL 129 MEQ/L (136-145); TOTAL PROTEIN 5.7 GM/DL (6.4-8.2)
[2018-08-13 17:36] LABS: PLATELET COUNT, AUTOMATED 55 10^3/uL (150-450)
== END ==
PROVIDERS: ATTEND Internal Medicine
DX: R53.83 Other fatigue (principal); R06.00 Dyspnea, unspecified; R14.0 Abdominal distension (gaseous)

== ENCOUNTER → 2018-08-18 | Outpatient (REF) | payer MEDICARE, OTHER, MEDICAID ==
[2018-08-18 08:38] LABS: HEMATOCRIT 29.7 % (42.0-52.0); MEAN CORPUSCULAR HEMOGLOBIN 30.3 pg (27.0-33.0); MEAN CORPUSCULAR HGB CONC 33.7 g/dl (32.0-36.5); WHITE BLOOD COUNT 5.8 10^3/uL (4.0-10.0)
[2018-08-18 08:52] LABS: PLATELET COUNT, AUTOMATED 55 10^3/uL (150-450)
[2018-08-18 09:01] LABS: ALBUMIN 2.7 GM/DL (3.2-5.2); ALT/SGPT 26 U/L (12-78); BILIRUBIN,TOTAL 0.6 MG/DL (0.2-1.0); BLOOD UREA NITROGEN 24 MG/DL (7-18); CALCIUM LEVEL 8.3 MG/DL (8.8-10.2); CARBON DIOXIDE LEVEL 26 MEQ/L (21-32); CHLORIDE LEVEL 98 MEQ/L (98-107); GLOMERULAR FILTRATION RATE > 60.0 (>35); GLUCOSE, FASTING 122 MG/DL (70-100); NT-PRO BNP 1538 PG/ML (<450); POTASSIUM SERUM 4.6 MEQ/L (3.5-5.1); SODIUM LEVEL 133 MEQ/L (136-145); TOTAL PROTEIN 5.1 GM/DL (6.4-8.2)
== END ==
PROVIDERS: ATTEND Internal Medicine
DX: I50.9 Heart failure, unspecified (principal)

== ENCOUNTER → 2018-08-19 | Outpatient (REF) | payer MEDICARE, OTHER, MEDICAID ==
[2018-08-19 09:25] LABS: HEMATOCRIT 32.3 % (42.0-52.0); HEMOGLOBIN 10.7 g/dl (13.5-17.5); MEAN CORPUSCULAR HEMOGLOBIN 29.8 pg (27.0-33.0); MEAN CORPUSCULAR HGB CONC 33.1 g/dl (32.0-36.5); RED BLOOD COUNT 3.59 10^6/uL (4.30-6.10); WHITE BLOOD COUNT 7.9 10^3/uL (4.0-10.0)
[2018-08-19 09:30] LABS: PLATELET COUNT, AUTOMATED 73 10^3/uL (150-450)
[2018-08-19 09:44] LABS: BLOOD UREA NITROGEN 26 MG/DL (7-18); CALCIUM LEVEL 8.6 MG/DL (8.8-10.2); CARBON DIOXIDE LEVEL 24 MEQ/L (21-32); CHLORIDE LEVEL 96 MEQ/L (98-107); CREATININE FOR GFR 1.05 MG/DL (0.70-1.30); GLOMERULAR FILTRATION RATE > 60.0 (>35); GLUCOSE, FASTING 134 MG/DL (70-100); POTASSIUM SERUM 4.3 MEQ/L (3.5-5.1); SODIUM LEVEL 131 MEQ/L (136-145)
[2018-08-19 10:35] LABS: HEMOGLOBIN A1c 8.3 %
== END ==
PROVIDERS: ATTEND Internal Medicine
DX: D64.9 Anemia, unspecified (principal); E11.9 Type 2 diabetes mellitus without complications